=== PATIENT | female | born 1995 | race Caucasian/White ===

== ENCOUNTER 2022-12-16 10:44 | Outpatient (AMB) | payer OTHER, SELFPAY ==
[2022-12-16 10:51] VITALS: BP 140/90; BMI 39.7
--- NOTE | 2022-12-16 10:51 | MHC.PC.OV ---
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) Intake Note: New patient , physical request, trouble eating Environmental Systems Coordinator Required: No Accompanied by: Self / Same As Patient Allergies No Known Allergies Allergy (Verified 12/16/22 11:06) Medication List - Last Reconciled 12/16/22 by Haydee Davalos MD albuterol sulfate 90 mcg/actuation (Ventolin HFA) 1 puff inhalation QID alprazolam (Xanax) 0.25 mg PO BEDTIME PRN amitriptyline 10 mg PO BEDTIME hbztqfhmhd-qlttdnezyezlq-emhw 50-325-40 mg 1 tab PO Q6H PRN cholecalciferol (vitamin D3) 325 mcg PO QWEEK metformin 500 mg PO BID Tobacco use date assessed: 12/16/22 Dental Screening Dental Screen Date: 12/16/22 Did you have a dental visit in the last 12 months?: No Did you have a dental problem in the last 6 months where you did not have access to dental care?: No Was dental information given to patient?: Yes HPI HPI Comments History of Present Illness Details This is a 27-year-old female with diabetes mellitus type 2, GERD, mild major depression and obesity that comes today to establish care. A1c within goal. GERD has been present for the last year after she had an abdominal pain episode a which required to go to the hospital in [place]. She also complains of chronic diarrhea that started about a year ago. Has mild major depression on Elavil and anxiety on benzodiazepines as needed. She is obese with a BMI of 39.7 and will be referred to weight management for possible weight loss surgery. She also complains of sacral pain after having a fall and agree with physical therapy. She has anxiety and she is aware that benzodiazepines can cause addiction. [facility] Surgical History History of colonoscopy History of wisdom tooth extraction Family History Mother Diabetes Asthma Hypertension Father Diabetes Maternal Grandfather Colon cancer Maternal Aunt Colon cancer Social History Housing: Apartment Alcohol intake: never Patient Tobacco Use Status: Never used Tobacco e-Cigarette/Vaping Use: Never Used Second Hand Smoke Exposure: No service: No Current occupational status: unemployed Cognitive needs: No Hearing needs: No Vision needs: Yes Questionnaire PHQ-9 Over the last 2 weeks, how often have you been bothered by any of the following problems? 1. Little interest or pleasure in doing things: several days 2. Feeling down, depressed, or hopeless: several days 3. Trouble falling or staying asleep, or sleeping too much: nearly every day 4. Feeling tired or having little energy: not at all 5. Poor appetite or overeating: several days 6. Feeling bad about yourself - or that you are a failure or have let yourself or your family down: several days 7. Trouble concentrating on things, such as reading the newspaper or watching television: not at all 8. Moving or speaking so slowly that other people could have noticed. Or the opposite - being so fidgety or restless that you have been moving around a lot more than usual: not at all 9. Thoughts that you would be better off or of hurting yourself in some way: not at all Total score: 7 Depression Screening Interpretation: Positive Depression Screening Follow-up: Existing condition Depression Screening Done: Yes 02585 - PHQ-9 Billing: Yes Source: Developed by Drs. Hamzah Iyer, Kemi Carver, Micky Lemons and colleagues, with an educational nolvia from [employer]. Thrive Questionnaire Date Thrive assessed: 12/16/22 I am a: Patient What is your living situation today?: I have a steady place to live Within the past 12 months, did the food you bought not last and you didn't have the money to get more?: Never true Within the past 12 months, did you worry whether your food would run out before you got money to buy more?: Never true Do you have trouble paying for medicines?: No Do you have trouble getting transportation to medical appointments?: No Do you have trouble paying your heating and electricity bill?: No Do you have trouble taking care of your child, family member or friend?: No Do you have trouble with day-to-day activities such as bathing, preparing meals, shopping, managing finances, etc.?: No Are you currently unemployed and looking for a job?: No Are you interested in more education?: No Please select the resources that you would like help with: None Currently or been in a relationship where the following occur: no concerns reported AUDIT C Alcohol Use Questionnaire (AUDIT-C) 1. How often do you have a drink containing alcohol?: Never Total Score: 0 Score Reviewed/Action Taken: No COCO-7 AMB Questionnaire COCO-7 Date COCO - 7 assessed: 12/16/22 Feeling nervous, anxious, or on edge: 3 = Nearly every day Not being able to stop or control worryin = Not at all Worrying too much about different things: 1 = Several days Trouble relaxin = Not at all Being so restless that it is hard to sit still: 0 = Not at all Becoming easily annoyed or irritable: 1 = Several days Feeling afraid as if something awful might happen: 3 = Nearly every day Total COCO-7 score (0-4 normal; 5-9 mild; 10-14 moderate; 15-21 severe): 8 Source: Developed by Drs. Hamzah Iyer, Kemi Carver, Micky Lemons and colleagues, with an educational nolvia from [employer]. COCO-7 Assessment Billing COCO-7 Assessment Tool: COCO-7 Assessment 66071 Review of Systems Const All systems reviewed & are unremarkable except as noted in HPI and below Eyes Reports no additional complaints, Denies change in vision and Denies other visual disturbances Card Denies chest pain at rest, Denies chest pain with activity, Denies edema, Denies irregular heart rhythm, Denies claudication, Denies dyspnea, Denies dyspnea on exertion, Denies orthopnea, Denies paroxysmal nocturnal dyspnea and Denies slow heart rate Resp Denies cough, Denies dyspnea and Denies dyspnea on exertion GI Denies abdominal pain, Denies change in bowel habits, Denies excessive flatus, Denies nausea and Denies vomiting Denies urinary incontinence, Denies urinary hesitancy and Denies urinary urgency Musc Denies abnormal gait, Denies atrophy, Denies deformity and Denies limited range of motion Skin/Breast Denies bleeding lesions, Denies changing lesions and Denies rash Neuro Denies abnormal gait and Denies lack of coordination Physical exam (Primary Care) Vital Signs: Last Vital Signs BP 140/90 H 12/16/22 10:51 BMI result Body Mass Index 39.7 Tobacco/Smoking Status: Tobacco use Status Tobacco use date assessed 12/16/22 12/16/22 11:03 Patient Tobacco Use Status Never used Tobacco 12/16/22 11:03 e-Cigarette/Vaping Use Never Used 12/16/22 11:03 PHQ-9: PHQ-9 Score PHQ-9: Total score 7 12/16/22 11:17 Depression Screening Interpretation: Positive Depression Screening Follow-up: Existing condition Thrive Assessment: Date of Thrive Assessment Date Thrive assessed 12/16/22 12/16/22 11:03 Currently or been in a relationship where the following occur: no concerns reported Eyes General: appearance normal, both eyes and all related structures Eyelids: Yes eyelids normal Conjunctivae: conjunctivae normal Neck Neck: Yes normal visual inspection and Yes supple Resp Effort & Inspection: normal respiratory effort Auscultation: clear to auscultation bilaterally Cardio Jugular venous distension: no JVD Rate: regular rate Rhythm: regular rhythm Heart sounds: S1 normal heart sound present and S2 normal heart sound present Extrem General: Yes full ROM Office Procedures Flu Questionnaire Does the patient have a severe egg allergy?: No Results AMB Hemoglobin A1c AMB Hemoglobin A1c 6.5 % Last Edit by STANLEY Smalls on 12/16/22 11:14 Immunizations flu vacc [id number] 6mos up(PF) 60 mcg(15 mcgx4)/0.5 mL IM syringe Performing Provider: Haydee Davalos MD [facility] Documented (not given) by: STANLEY Smalls on 12/16/22 11:05 Reason Not Given: Patient Refused Results Reviewed Results Reviewed: Laboratory Last Values Hgb A1c (Clinic) 6.5 % (4.0-6.0) H 12/16/22 11:05 Assessment and Plan Assessment & Plan (1) Diabetes mellitus: Code(s): E11.9 - Type 2 diabetes mellitus without complications Plan: Continue metformin. A1c goal is equal or less than 7%. (2) Severe obesity (BMI 35.0-39.9) with comorbidity: Code(s): E66.01 - Morbid (severe) obesity due to excess calories Plan: Referred to weight management. BMI goal is less than 30. (3) Mild major depression: Code(s): F32.0 - Major depressive disorder, single episode, mild Plan: Continue amitriptyline. Referred to counseling. (4) GERD (gastroesophageal reflux disease): Code(s): K21.9 - Gastro-esophageal reflux disease without esophagitis Plan: Start PPIs. Referred to Gastroenterology. Orders: Orders Influenza [id number] Immunization Today Z23 - Encounter for immunization AMB Hemoglobin A1c Today Z13.9 - Encounter for screening, unspecified Lipid Panel Today E11.9 - Type 2 diabetes mellitus without complications, E78.5 - Hyperlipidemia, unspecified Comprehensive [place]. Panel Fast Today E11.9 - Type 2 diabetes mellitus without complications PT Evaluation and Treatment Today M53.3 - Sacrococcygeal disorders, not elsewhere classified Microalbumin, Random (w Creat) Today E11.9 - Type 2 diabetes mellitus without complications XR sacrum coccyx min 2V Today M53.3 - Sacrococcygeal disorders, not elsewhere classified Referrals Gastroenterology Referral K21.9 - Gastro-esophageal reflux disease without esophagitis Counseling Referral F32.0 - Major depressive disorder, single episode, mild Medical Weight Management Referral E66.01 - Morbid (severe) obesity due to excess calories Medications: New omeprazole 20 mg PO DAILY 90 days PRN 90 caps 0RF heartburn K21.9 - Gastro-esophageal reflux disease without esophagitis alprazolam (Xanax) 0.25 mg PO BEDTIME 30 days PRN 10 tabs 0RF anxiety metformin 500 mg PO BID 90 days 180 tabs 1RF omeprazole 20 mg PO DAILY 90 days PRN 90 caps 0RF heartburn K21.9 - Gastro-esophageal reflux disease without esophagitis Ventolin HFA 90 mcg/actuation (albuterol sulfate) 1 puff inhalation QID 30 days 18 grams 2RF NS lvjhposotb-wxenqsqeibqbs-maxo 50-325-40 mg 1 tab PO Q6H 30 days PRN 10 tabs 0RF migraines amitriptyline 10 mg PO BEDTIME 90 days 90 tabs 1RF F32.0 - Major depressive disorder, single episode, mild, G43.909 - Migraine, unspecified, not intractable, without status migrainosus Coding Level of Care Code New Pt Level 4 (39318) Diagnoses Diabetes mellitus E11.9 Severe obesity (BMI 35.0-39.9) with comorbidity E66.01 Mild major depression F32.0 GERD (gastroesophageal reflux disease) K21.9 Additional Codes COCO-7 Assessment Billing - COCO-7 Assessment Tool: COCO-7 Assessment 04516 ([id number]) Time Spent (min) 25
== END 2022-12-16 11:27 | disposition home or self-care (01) ==
PROVIDERS: PCP Internal Medicine; Visit Provider Internal Medicine
DX: E11.9 Type 2 diabetes mellitus without complications (principal); E66.01 Morbid (severe) obesity due to excess calories; F32.0 Major depressive disorder, single episode, mild; Z68.39 Body mass index [BMI] 39.0-39.9, adult; K21.9 Gastro-esophageal reflux disease without esophagitis
CPT/HCPCS: 83036; 99204

== ENCOUNTER → 2023-01-01 11:02 | Outpatient (BNVA) | payer OTHER, SELFPAY | PROVIDERS: PCP Internal Medicine; Visit Provider Physician Assistant Surgical ==

== ENCOUNTER 2023-01-19 14:18 | Outpatient (AMB) | payer OTHER, SELFPAY ==
--- NOTE | 2023-01-19 14:25 | MHC.OFFVISWM ---
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 Allergies No Known Allergies Allergy (Verified 01/19/23 14:35) Medication List - Last Reconciled 01/19/23 by MARY Reynoso alprazolam (Xanax) 0.25 mg PO BEDTIME PRN 30 days amitriptyline 10 mg PO BEDTIME 90 days nxwjdcnlco-yadlzwazplqxo-etmt 50-325-40 mg 1 tab PO Q6H PRN 30 days cholecalciferol (vitamin D3) 325 mcg PO QWEEK metformin 500 mg PO BID 90 days omeprazole 20 mg PO DAILY PRN 90 days Ventolin HFA 90 mcg/actuation (albuterol sulfate) 1 puff inhalation QID 30 days NS HPI HPI Comments History of Present Illness Details Pt is here to start the [facility] weight loss program. She heard about our program from her PCP. Her goal is to lose weight and achieve a healthy lifestyle as well as to improve, if not resolve, obesity related medical conditions, including DM. She reports first being concerned about her weight 4 years ago, highest weight to date was 232. Current weight is 217.2 pounds with a BMI of 41.1. She has tried multiple methods of weight loss including fad diets without permanent results. She lives with her boyfriend. She does not work. She wakes at:?9 am, and goes to bed at?11 pm. Dinner is at 630 pm. Breakfast: oatmeal or eggs AM snack: crackers or cookies Lunch: pizza roll PM snack: cookies Dinner: rice and beans or soup After dinner: candy, ice cream Other snacks: as above Liquids: 48-64 oz water Alcohol/marijuana/tobacco intake: no etoh, twice daily smoking cannabis, no tobacco Exercise: none, gym membership at [employer]. GERD score: 33 KASHIF score: 2 ESS score: 1 QOL score: 109 [facility] History History of colonoscopy History of wisdom tooth extraction Family History Mother Diabetes Asthma Hypertension Father Diabetes Maternal Grandfather Colon cancer Maternal Aunt Colon cancer Social History Housing: Apartment Alcohol intake: never Patient Tobacco Use Status: Never used Tobacco e-Cigarette/Vaping Use: Never Used Second Hand Smoke Exposure: No service: No Current occupational status: unemployed Cognitive needs: No Hearing needs: No Vision needs: Yes Review of Systems Const All systems reviewed & are unremarkable except as noted in HPI and below Physical Exam Vital Signs: Last Vital Signs Temp 97.4 F 01/19/23 14:30 Pulse 97 01/19/23 14:30 BP 139/75 01/19/23 14:30 Pulse Ox 99 01/19/23 14:30 Oxygen Delivery Method Room Air 01/19/23 14:30 BMI result Body Mass Index 41.0 Const General: cooperative, healthy appearing and no acute distress Orientation/consciousness: patient oriented x3 HEENT Head: Yes normal to inspection Ears: hearing grossly normal bilaterally General nose exam: Normal external nose present Face and sinus: Yes normal facial exam Eyes General: appearance normal, both eyes and all related structures Resp Effort & Inspection: normal respiratory effort Auscultation: clear to auscultation bilaterally Cardio Rate: regular rate Rhythm: regular rhythm Heart sounds: S1 normal heart sound present and S2 normal heart sound present GI Inspection: Yes normal to inspection, No distended and Yes obesity Palpation (GI): Soft to palpation, nontender and no guarding Auscultation: normal bowel sounds Skin General skin exam: no rashes or lesions noted Neuro General: patient oriented x3 Extrem General: No edema Psych Appearance: grossly normal Mental Status: mental status grossly normal Speech and movement: Normal speech and movement present Affect: normal affect Attitude: cooperative Assessment & Plan Assessment & Plan (1) Morbid obesity: Code(s): E66.01 - Morbid (severe) obesity due to excess calories Plan: This is a?27 yo female who will start our SWL program to prepare for bariatric surgery.? Blood work, h pylori , CXR, ECG, Abd US and UGI have been ordered. She is being scheduled for RD and BH initial consultations. She will start SWL classes and watch the first three videos before her next appointment. ? Adequate sleep of 7-8 hours per night discussed, awakening at 9 am and going to bed at 11 pm ? Purchase body composition analyzer scale ([employer] recommended) and check weight weekly. The best time to do this is first thing in the morning after going to the bathroom. 1. Nutritional counseling: Be sure to careful read the number of scoops per shake Start with 2 Celebrate Rebuild shakes ([facility] [employer], 77 Pieces, [employer]) First shake (1 scoop in 10 oz unsweetened almond milk) at 10am-12pm, Second shake (1.5 scoops in 15 oz of unsweetened almond milk) at 12pm-2pm 1 protein bar ([employer] bars at [facility] [employer], 77 Pieces, [employer]) at 2pm-4pm. Dinner at 6pm (8 forks of protein and 8 forks of salad/vegetables). Meal to include lean meat (beef, fish, pork, turkey, chicken), cooked vegetables or a salad with olive oil and/or fruits (berries, pears, apples, kiwi). Avoid salt, breads, potatoes, rice, pasta, desserts. Another bar at 8pm-10pm. Try to drink 64 oz of water daily and avoid soda and juices. ?2. Each shake would be drunk slowly, like coffee in a period of 2 hours. ?3. Cut each bar in 4 pieces and eat each piece in 30 min ?to make each bar last 2 hours. ?4. I emphasized the importance of measuring accurately the food portion and measure it carefully when serving the food on the plate ?5. The meal portions include 8 full-size forks of meat and 8 full-size forks of salad. You always eat the meat portion but you can replace up to half of the forks of salad/vegetables with rice, potatoes or pasta, or a fruit ?if you like. The less you do it the better weight loss will be. ?6. One full-size fork is what can be scooped on the fork without falling aside and not what can be bit with the fork. Use regular forks like those you find in a typical restaurant. ?7.? Please send me weight measurements as soon as possible and then once a week. Always include your diet and exercise plan. Alternatively come weekly at the office for weight checks and send me the measurements. ?8. Exercise counseling: Begin by watching a stretching for beginners video. Start slowly and begin to stretch your muscles. You should do this before and after each exercise session to prevent injury. Please return to [employer] [facility] near your home. Ask the home health care case manager or one of the trainers how to use the machines if you are unfamiliar with them. Start elliptical with a resistance of 2. Increase resistance by 1 every 3 min to your most comfortable resistance with a max resistance of 8. Reduce the resistance by 1 every 3 minutes back down to 2 and repeat cycles for 300 calories. Alternatively, start treadmill with a speed of 3.0 and incline of 0, increasing incline by 1 every 3 minutes to the highest comfortable level (max 6 for now) then decrease in the same fashion. Repeat process to a goal of 300 calories. Goal of 2000 calories burned or more weekly. You may also consider use of the stationary bike. The easiest would be to chose the fat-burn or interval training program on the machine and do this until you reach the 300 calorie goal. Alternatively, you can manually adjust the resistance in a similar fashion as mentioned above, (resistance of 2-8 with a goal speed of 12 mph). Tracking calories is essential. 9. Alternatively start walking outside daily, tracking calories with a goal of 300 calories per day, daily. You can download the [employer] which can track your time, distance and calories while walking outside. You press start in the [employer] when you start and then stop when you are finished. 10.? It is important to avoid for at least 18 months postoperatively and it has been discussed at the information session 11. Please get labs, EKG and chest X-Ray within 1 week. Follow your blood sugars at home closely as they will improve quickly and you may not need as much metformin. 12. Discussed and answered all questions regarding?obtained consent to participate in the [place] [facility]?Registry. 13. Please follow the diet plan exactly, without any change. If you do not like something about the plan or you feel hungry, you need to communicate with me so I can help you revise the plan. You should not change the plan yourself. Text me at [phone] 14. Goal is to lose at least 12 pounds in the first month 15. Goal is to lose 10% of your weight before surgery, which is about 21 lbs. Ultimate weight goal: 196 lbs before surgery Patient is morbidly obese and is not considered stable at this time.?I spent a total of 70 minutes reviewing/updating records, examining the patient and counseling the patient on weight management as detailed above. Orders: Orders Lipid Panel Today E11.9 - Type 2 diabetes mellitus without complications, E55.9 - Vitamin D deficiency, unspecified, E66.01 - Morbid (severe) obesity due to excess calories IRON PROFILE Today E11.9 - Type 2 diabetes mellitus without complications, E55.9 - Vitamin D deficiency, unspecified, E66.01 - Morbid (severe) obesity due to excess calories Vitamin B12 and Folate Today E11.9 - Type 2 diabetes mellitus without complications, E55.9 - Vitamin D deficiency, unspecified, E66.01 - Morbid (severe) obesity due to excess calories Zinc Today E11.9 - Type 2 diabetes mellitus without complications, E55.9 - Vitamin D deficiency, unspecified, E66.01 - Morbid (severe) obesity due to excess calories C Reactive Protein Today E11.9 - Type 2 diabetes mellitus without complications, E55.9 - Vitamin D deficiency, unspecified, E66.01 - Morbid (severe) obesity due to excess calories Ferritin Today E11.9 - Type 2 diabetes mellitus without complications, E55.9 - Vitamin D deficiency, unspecified, E66.01 - Morbid (severe) obesity due to excess calories PTHI Today E11.9 - Type 2 diabetes mellitus without complications, E55.9 - Vitamin D deficiency, unspecified, E66.01 - Morbid (severe) obesity due to excess calories H Pylori Breath Test Today E11.9 - Type 2 diabetes mellitus without complications, E55.9 - Vitamin D deficiency, unspecified, E66.01 - Morbid (severe) obesity due to excess calories US abdomen comp w elastography Today E11.9 - Type 2 diabetes mellitus without complications, E55.9 - Vitamin D deficiency, unspecified, E66.01 - Morbid (severe) obesity due to excess calories Insulin Today E11.9 - Type 2 diabetes mellitus without complications, E55.9 - Vitamin D deficiency, unspecified, E66.01 - Morbid (severe) obesity due to excess calories Complete Blood Count Auto Diff Today E11.9 - Type 2 diabetes mellitus without complications, E55.9 - Vitamin D deficiency, unspecified, E66.01 - Morbid (severe) obesity due to excess calories Comprehensive Met. Panel Today E11.9 - Type 2 diabetes mellitus without complications, E55.9 - Vitamin D deficiency, unspecified, E66.01 - Morbid (severe) obesity due to excess calories Vitamin B1 Today E11.9 - Type 2 diabetes mellitus without complications, E55.9 - Vitamin D deficiency, unspecified, E66.01 - Morbid (severe) obesity due to excess calories Vitamin A Today E11.9 - Type 2 diabetes mellitus without complications, E55.9 - Vitamin D deficiency, unspecified, E66.01 - Morbid (severe) obesity due to excess calories TSH reflex Free T4 Today E11.9 - Type 2 diabetes mellitus without complications, E55.9 - Vitamin D deficiency, unspecified, E66.01 - Morbid (severe) obesity due to excess calories Vitamin D 25-OH Total Today E11.9 - Type 2 diabetes mellitus without complications, E55.9 - Vitamin D deficiency, unspecified, E66.01 - Morbid (severe) obesity due to excess calories Hemoglobin A1c Today E11.9 - Type 2 diabetes mellitus without complications, E55.9 - Vitamin D deficiency, unspecified, E66.01 - Morbid (severe) obesity due to excess calories XR chest 2V Today E11.9 - Type 2 diabetes mellitus without complications, E55.9 - Vitamin D deficiency, unspecified, E66.01 - Morbid (severe) obesity due to excess calories ECG 12 lead EKG Today E11.9 - Type 2 diabetes mellitus without complications, E55.9 - Vitamin D deficiency, unspecified, E66.01 - Morbid (severe) obesity due to excess calories FL upper GI w air Today E11.9 - Type 2 diabetes mellitus without complications, E55.9 - Vitamin D deficiency, unspecified, E66.01 - Morbid (severe) obesity due to excess calories Referrals Behavioral Health Referral E11.9 - Type 2 diabetes mellitus without complications, E55.9 - Vitamin D deficiency, unspecified, E66.01 - Morbid (severe) obesity due to excess calories Nutrition/Dietitian Referral E11.9 - Type 2 diabetes mellitus without complications, E55.9 - Vitamin D deficiency, unspecified, E66.01 - Morbid (severe) obesity due to excess calories Coding Level of Care Code New Pt Level 5 (28087) Diagnoses Morbid obesity E66.01 Time Spent (min) 70
[2023-01-19 14:30] VITALS: BP 139/75; PULSE 97; TEMP 36.3; O2SAT 99; BMI 41.0
== END 2023-01-19 16:57 | disposition home or self-care (01) ==
PROVIDERS: PCP Internal Medicine; Visit Provider Physician Assistant Surgical
DX: E66.01 Morbid (severe) obesity due to excess calories (principal); Z68.41 Body mass index [BMI] 40.0-44.9, adult
CPT/HCPCS: 99205

== ENCOUNTER → 2023-01-19 14:18 | Outpatient (BNVA) | payer OTHER, SELFPAY | PROVIDERS: PCP Internal Medicine; Visit Provider Physician Assistant Surgical | DX: E66.01 Morbid (severe) obesity due to excess calories (principal); Z68.41 Body mass index [BMI] 40.0-44.9, adult | CPT/HCPCS: 99202 ==

== ENCOUNTER 2023-01-19 14:26 | Outpatient (REF) | payer OTHER, SELFPAY | END 2023-01-19 14:27 | disposition home or self-care (01) | LOC: HO.LNP 14:26 | PROVIDERS: Visit Provider Physician Assistant Surgical | DX: Z13.89 Encounter for screening for other disorder (principal) | CPT/HCPCS: 83013 ==

== ENCOUNTER 2023-01-23 10:53 | Outpatient (REF) | payer OTHER, SELFPAY ==
--- NOTE | ~2023-01-23 | XR_ITS ---
EXAMINATION: XR SACRUM AND COCCYX CLINICAL INFORMATION: Sacral coccygeal disorders, not elsewhere classified COMPARISON: None available. TECHNIQUE: 2 views of the sacrum and 2 views of the coccyx were obtained. FINDINGS: There are no fractures. No bone, joint or soft tissue abnormality is demonstrated. XR/XR sacrum coccyx min 2V IMPRESSION: No significant bony abnormality.
--- NOTE | ~2023-01-23 | XR_ITS ---
EXAMINATION: XR CHEST CLINICAL INFORMATION: Morbid (severe) obesity due to excess calories COMPARISON: None available. TECHNIQUE: 2 views of the chest were obtained. 11:45 AM FINDINGS: No significant abnormality is noted involving the heart, lungs, mediastinum, bony thorax or soft tissues. XR/XR chest 2V IMPRESSION: Unremarkable examination.
--- NOTE | 2023-01-23 11:10 | ECG_ITS ---
Test Reason : E66.01 Blood Pressure : / mmHG Vent. Rate : 082 BPM Atrial Rate : 082 BPM P-R Int : 174 ms QRS Dur : 084 ms QT Int : 396 ms P-R-T Axes : 044 022 030 degrees QTc Int : 462 ms Normal sinus rhythm Normal ECG No previous ECGs available Referred By: Robbi Rocha Electronically Signed By:EDI BUENROSTOR MD
[2023-01-23 11:20] LABS: MANUAL DIFF FLAG NO
[2023-01-23 12:06] LABS: Basophils Percent Auto 0.4 % (0-2); Eosinophils Absolute Auto 0.2 X10*3/uL (0.0-0.4); Eosinophils Percent Auto 2.5 % (0-4); Hematocrit 43.4 % (37.0-47.0); Hemoglobin 14.5 g/dl (12.0-16.0); Imm Gran Abs Auto 0.01 X10*3/uL (0.00-0.03); Imm Gran Pct Auto 0.1 % (0.0-0.4); Lymphocytes Absolute Auto 2.4 X10*3/uL (1.2-4.9); Lymphocytes Percent Auto 35.8 % (20-40); Mean Corpuscular HGB Conc 33.4 g/dl (31.0-35.0); Mean Corpuscular Hemoglobin 29.8 pg (27.0-33.0); Mean Corpuscular Volume 89.3 fL (80.0-98.0); Mean Platelet Volume 9.5 fL (9.4-12.3); Monocytes Absolute Auto 0.5 X10*3/uL (0.1-1.2); Monocytes Percent Auto 7.4 % (2-11); Neutrophils Absolute Auto 3.6 x10*3/uL (2.0-8.3); Neutrophils Percent Auto 53.8 % (45-73); Platelet Count 290 X10*3/uL (160-400); Red Blood Count 4.86 X10*6/uL (4.20-5.50); Red Cell Distribution Width 12.5 % (11.0-16.0); White Blood Count 6.7 X10*3/uL (4.8-10.8)
[2023-01-23 12:36] LABS: Estimated Average Glucose 128 mg/dL; Hemoglobin A1c % 6.1 % (<6.0)
[2023-01-23 13:03] LABS: Alanine Aminotransferase 36 U/L (0-31); Albumin Level 4.2 g/dL (3.5-5.0); Alkaline Phosphatase 61 U/L (39-117); Anion Gap 13 (12-20); Aspartate Amino Transferase 31 U/L (5-31); Bilirubin Total 0.5 mg/dL (0.0-1.0); Blood Urea Nitrogen 13 mg/dL (9-16); C Reactive Protein 0.42 mg/dL (< or = 0.50); Carbon Dioxide 22 mmol/L (22-29); Chloride 107 mmol/L (96-108); Cholesterol 218 mg/dL (<200); Estimated Glomerular Filt Rate > 60; Glucose Random 103 mg/dL (60-115); HDL Cholesterol 49 mg/dL (>40); Iron 104 mcg/dL (30-160); LDL Cholesterol Calculated 148 mg/dL (<100); Percent Iron Saturation 27 % (15-50); Potassium 4.3 mmol/L (3.3-5.1); Sodium 138 mmol/L (135-145); Total Iron Binding Capacity 380 mcg/dL (228-428); Total Protein 7.7 g/dL (6.5-8.0); Triglycerides 108 mg/dL (<150); Unsaturated Iron Binding 276 ug/dL
[2023-01-23 13:25] LABS: Ferritin 34 ng/mL (10-122); Insulin 7 uU/mL (2-29); TSH reflex Free T4 1.35 uIU/mL (0.32-4.0); Vitamin D 25-OH Total 37.9 ng/mL (>30)
[2023-01-23 13:48] LABS: Folate 6.1 ng/mL (> or = 4.0); Vitamin B12 482 pg/mL (200-900)
[2023-01-26 17:17] LABS: Calcium (PTHI) 9.3 mg/dL (8.6-10.2); PTHI 46 pg/mL (16-77)
[2023-01-27 05:39] LABS: Zinc 81 mcg/dL (60-130)
[2023-01-28 09:28] LABS: Vitamin A 45 mcg/dL (38-98)
[2023-01-28 12:59] LABS: Vitamin B1 8 nmol/L (8-30)
== END 2023-01-23 10:54 | disposition home or self-care (01) ==
LOC: HO.XRAY 10:53
PROVIDERS: PCP Internal Medicine; Visit Provider Physician Assistant Surgical
DX: E66.01 Morbid (severe) obesity due to excess calories (principal); E11.9 Type 2 diabetes mellitus without complications; E55.9 Vitamin D deficiency, unspecified; M53.3 Sacrococcygeal disorders, not elsewhere classified
CPT/HCPCS: 36415; 71046; 72220; 80053; 80061; 82306; 82607; 82728; 82746; 83036; 83525; 83540; 83970; 84425; 84443; 84590; 84630; 85025; 86140; 93005

== ENCOUNTER 2023-01-28 09:56 | Outpatient (AMB) | payer OTHER, SELFPAY ==
--- NOTE | 2023-01-28 10:07 | MHC.OFFVIS ---
Intake Vital Signs 01/28/23 10:09 Height 5 ft 1 in Weight 212 lb BMI 40.1 BP 130/74 Blood Pressure Location Lt brachial Position Sitting Pulse 78 Intake Visit Reasons: Gastro-esophageal reflux disease Intake Note: Patient new consult for Diverticulosis and GERD. Patient cc: Diverticulosis, nauseas, acid reflex, abdominal pain with bloating and diarrhea. Emergency Doctor Required: Yes Accompanied by: Family/Other Allergies No Known Allergies Allergy (Verified 01/28/23 10:07) Medication List - Last Reconciled 01/28/23 by Pema Marquez PA-C alprazolam (Xanax) 0.25 mg PO BEDTIME PRN 30 days amitriptyline 10 mg PO BEDTIME 90 days hztuyrfgte-emoxdlpohddum-vogw 50-325-40 mg 1 tab PO Q6H PRN 30 days cholecalciferol (vitamin D3) 325 mcg PO QWEEK cyanocobalamin (vitamin B-12) 250 mcg PO DAILY 90 days metformin 500 mg PO BID 90 days omeprazole 20 mg PO DAILY PRN 90 days Ventolin HFA 90 mcg/actuation (albuterol sulfate) 1 puff inhalation QID 30 days NS HPI HPI Comments History of Present Illness Details A 27 y/o female- referred after GI workup in portal ago. She is accompanied by her she tells as she went to ED 1 yr ago- in [place]-N/V/D 01/30/22-CT scan- ? fluid in rectum- sent for colon 06/09/22-colonoscopy: Mild sig divertic Int rrhoids Bx- rectal normal mucosa Seeing Wt management- acid reflux improved-having H.pylori 02/11/23 - no ppi - In she is following and the recommended diet to include, protein shakes and only 1 meal-she did excess has helped improve Constipated since began iron supplements,- colace - was very helpful Requesting for previous GI-further breath test hydrogen breath test and lactose No nausea, vomiting hematemesis, hematochezia fever chills PFSH Surgical History (Updated 01/28/23 @ 10:50 by Pema Marquez PA-C) History of colonoscopy History of wisdom tooth extraction Family History Mother Diabetes Asthma Hypertension Father Diabetes Maternal Grandfather Colon cancer Maternal Aunt Colon cancer Social History Housing: Apartment Alcohol intake: never Patient Tobacco Use Status: Never used Tobacco e-Cigarette/Vaping Use: Never Used Second Hand Smoke Exposure: No service: No Current occupational status: unemployed Cognitive needs: No Hearing needs: No Vision needs: Yes Review of Systems Const All systems reviewed & are unremarkable except as noted in HPI and below Card Denies chest pain and Denies dyspnea Resp Denies dyspnea GI Reports constipation and Reports heartburn Physical Exam Vital Signs: Last Vital Signs Pulse 78 01/28/23 10:09 BP 130/74 01/28/23 10:09 BMI result Body Mass Index 40.1 Const General: cooperative, healthy appearing, comfortable and no acute distress Nutritional Appearance: overweight Orientation/consciousness: patient oriented x3 Limitations: no limitations Eyes Sclerae: sclerae normal Resp Effort & Inspection: normal respiratory effort and able to speak in complete sentences Auscultation: clear to auscultation bilaterally, no rales, no rhonchi and no wheezes Cardio Rate: regular rate Rhythm: regular rhythm Heart sounds: S1 normal heart sound present and S2 normal heart sound present GI Palpation (GI): Soft to palpation and nontender Auscultation: normal bowel sounds Neuro General: patient oriented x3 Extrem General: Yes full ROM Psych Appearance: grossly normal and well kempt Mental Status: mental status grossly normal Speech and movement: Normal speech and movement present and Clear speech present Affect: normal affect Attitude: cooperative Thought process: Normal thought process present Thought content: Normal thought content present Insight: Good insight present (Psych) Judgement: Good judgement present (Psych) Assessment & Plan Assessment & Plan (1) GERD (gastroesophageal reflux disease): Comment: PPI, improved with dietary modification -following with weight management Code(s): K21.9 - Gastro-esophageal reflux disease without esophagitis Plan: Not taking PPI, awaiting H pylori testing she (2) Severe obesity (BMI 35.0-39.9) with comorbidity: Comment: Weight management Code(s): E66.01 - Morbid (severe) obesity due to excess calories (3) Diverticulosis of colon: Code(s): K57.30 - Diverticulosis of large intestine without perforation or abscess without bleeding Plan: diverticulosis/diverticulitis ER protocol (4) Hemorrhoids: Code(s): K64.9 - Unspecified hemorrhoids Plan: Avoid straining Rectal creams (5) Constipation: Code(s): K59.00 - Constipation, unspecified Plan: Maintain good hydration Review with weight management (6) History of colonoscopy: Code(s): Z98.890 - Other specified postprocedural states Plan: 27-year-old female here with history of GERD, seen in worked up by a health sciences program coordinator in [place] within the past year. She underwent colonoscopy. She is currently working with weight management and following there dietary recommendations She will continue to follow their recommendations Maintain good hydration She is had much improvement GERD since beginning wt with management Plan Will place order for lactulose and hydrogen testing Colonoscopy report/pathology will be scanned into her record Continue to with weight management/recommendations-in having H pylori testing with them next week Diverticulosis/diverticulitis here protocol Will see back after testing completed for further plan. Patient Instructions: Will place order for lactulose and hydrogen testing Colonoscopy report/pathology will be scanned into her record Continue to with weight management/recommendations Diverticulosis/diverticulitis here protocol Will see back after testing completed for further plan Coding Level of Care Code New Pt Level 4 (30908) Diagnoses GERD (gastroesophageal reflux disease) K21.9 Severe obesity (BMI 35.0-39.9) with comorbidity E66.01 Diverticulosis of colon K57.30 Hemorrhoids K64.9 Constipation K59.00 History of colonoscopy Z98.890 Time Spent (min) 40
[2023-01-28 10:09] VITALS: BP 130/74; PULSE 78; BMI 40.1
== END 2023-01-28 10:55 | disposition home or self-care (01) ==
PROVIDERS: PCP Internal Medicine; Visit Provider Physician Assistant
DX: K21.9 Gastro-esophageal reflux disease without esophagitis (principal); E66.01 Morbid (severe) obesity due to excess calories; K57.30 Diverticulosis of large intestine without perforation or abscess without bleeding; K64.9 Unspecified hemorrhoids; K59.00 Constipation, unspecified; Z98.890 Other specified postprocedural states
CPT/HCPCS: 99204

== ENCOUNTER → 2023-01-28 09:56 | Outpatient (BNVA) | payer OTHER, SELFPAY | PROVIDERS: PCP Internal Medicine; Visit Provider Physician Assistant | DX: K57.30 Diverticulosis of large intestine without perforation or abscess without bleeding (principal); K21.9 Gastro-esophageal reflux disease without esophagitis; K59.00 Constipation, unspecified; K64.9 Unspecified hemorrhoids; E66.01 Morbid (severe) obesity due to excess calories; Z68.41 Body mass index [BMI] 40.0-44.9, adult; Z98.890 Other specified postprocedural states | CPT/HCPCS: 99202 ==

== ENCOUNTER 2023-02-11 10:15 | Outpatient (AMB) | payer OTHER, SELFPAY ==
--- NOTE | 2023-02-11 10:22 | AM.OFFWIN_ITS ---
Intake Vital Signs 02/11/23 10:23 Height 5 ft 1 in Weight 211 lb 2 oz BMI 39.9 BP 130/78 Blood Pressure Location Rt brachial Position Sitting Pulse 80 Pulse Source Pulse Oximeter Temp 98.2 F Temp Source Temporal Artery Scan Pulse Oximetry (%) 98 Oxygen Delivery Method Room Air Intake Visit Reasons: EST/fever/congestion (lobby masked) Intake Note: pt is here for c/o fever, congestion, fever, body ache, watery eyes 2x days Patient Tobacco Use Status: Never used Tobacco Allergies No Known Allergies Allergy (Verified 02/11/23 10:24) Do you need a note to return to daycare/school/sports/work: Yes HPI HPI Comments History of Present Illness Details Patient is a 27yo F who presents with viral symptoms She said onset 2 days symptoms: fever, body aches, sore throat,congestion, diarrhea Diarrhea has improved. She is currently being worked up by GI for H pylori Has appointment today and told to be seen to r/o COVI prior to arrival so she came to office today + post nasal drip + cough but no SOB Hx asthma without need for medicine + ear pain, now R sided She thought she saw a white spot in throat, pain is slight with swallowing Close contact sick with flu PFSH Surgical History (Updated 01/28/23 @ 10:50 by Pema Marquez PA-C) History of colonoscopy History of wisdom tooth extraction Family History Mother Diabetes Asthma Hypertension Father Diabetes Maternal Grandfather Colon cancer Maternal Aunt Colon cancer Social History Housing: Apartment Alcohol intake: never Patient Tobacco Use Status: Never used Tobacco e-Cigarette/Vaping Use: Never Used Second Hand Smoke Exposure: No service: No Current occupational status: unemployed Cognitive needs: No Hearing needs: No Vision needs: Yes Review of Systems Const Reports body aches, Reports chills and Reports headache(s) Eyes Reports itchy eyes ENT Denies ear discharge, Reports headache(s), Reports nasal congestion, Reports sore throat and Reports other (ear pain) Card Denies chest pain Resp Reports cough GI Denies abdominal pain and Reports loose stools Musc Reports myalgias Neuro Reports headache(s) Aller/Immun Reports itchy eyes Physical Exam Vital Signs: Last Vital Signs Temp 98.2 F 02/11/23 10:23 Pulse 80 02/11/23 10:23 BP 130/78 02/11/23 10:23 Pulse Ox 98 02/11/23 10:23 Oxygen Delivery Method Room Air 02/11/23 10:23 BMI result Body Mass Index 39.9 General: Non-toxic, NAD. Speaking full sentences. Skin: Warm dry throughout Eye: EOMI HENT: Airway patent. Uvula midline. No pharyngeal erythema, exudates or edema. No MD PEDIATRIC ALLERGIST. Bilateral canals clear. Slight L sided TM erythema but R TM non-erythematous, non-bulging. No TM perforation or hemotympanum noted. Respiratory: CTA bilaterally. No wheezes, rales or rhonchi Cardiac: RRR. No murmur MSK: Full ROM extremities. Neurology: A/O. No aphasia or facial droop. Gait without abnormality Psych: Good mood and affect Assessment & Plan Assessment & Plan (1) Upper respiratory infection: Code(s): J06.9 - Acute upper respiratory infection, unspecified Qualifiers: URI type: unspecified viral URI Qualified Code(s): J06.9 - Acute upper respiratory infection, unspecified Plan: COVID negative Plan Patient seen and evaluated. Lungs CTA; no concern PNA Airway patent without exudates MD PEDIATRIC ALLERGIST or signs of strep offered rapid but pt declined COVID test ordered BiaxNOW to be completed next door; she needs results for appointment today We discussed if negative, flu can be obtained but would not policy change clerk and pt declined We discussed symptomatic management with bland diet, fluids, fever/ache control with OTC meds F/U with PCP Pt gave verbal consent and all questions answered prior to d/c. She declined power generation technician for visit. Orders: Orders BinaxNOW Covid-19 Ag Today J06.9 - Acute upper respiratory infection, unspecified Coding Level of Care Code Est Pt Level 3 (97178) Diagnoses Viral upper respiratory tract infection J06.9 URI type: unspecified viral URI
[2023-02-11 10:23] VITALS: BP 130/78; PULSE 80; TEMP 36.8; O2SAT 98; BMI 39.9
== END 2023-02-11 11:27 | disposition home or self-care (01) ==
PROVIDERS: PCP Internal Medicine; Visit Provider Physician Assistant
DX: J06.9 Acute upper respiratory infection, unspecified (principal)
CPT/HCPCS: 99213

== ENCOUNTER 2023-02-11 10:45 | Outpatient (REF) | payer OTHER, SELFPAY ==
[2023-02-11 11:11] LABS: Binax Internal Control QC Valid; Binax Now Covid-19 Ag Negative (Negative); Binax Performed by: HO.BONILM
[2023-02-16 14:04] LABS: H Pylori Breath Test Positive (Negative)
== END 2023-02-11 10:46 | disposition home or self-care (01) ==
LOC: HO.HMGCLDS 10:45
PROVIDERS: Physician Assistant Surgical; Visit Provider Physician Assistant
DX: Z11.52 Encounter for screening for COVID-19 (principal); E66.9 Obesity, unspecified; J06.9 Acute upper respiratory infection, unspecified
CPT/HCPCS: 83013; 87811; 99211; 99212; C9803

== ENCOUNTER 2023-02-11 14:00 | Outpatient (AMB) | payer OTHER, SELFPAY ==
--- NOTE | 2023-02-11 14:01 | MHC.OFFVISWM ---
Intake VS Expanded 02/11/23 14:15 BP 147/72 H Blood Pressure Location Rt brachial Blood Pressure Position Sitting Pulse 83 Pulse Source Pulse Oximeter Temp 97.5 F Temperature Source Temporal Artery Scan Pulse Oximetry 97 Oxygen Delivery Method Room Air Height 5 ft 1 in Weight 206 lb 6.4 oz BMI 39.0 Body Fat % 43.2 Body Fat Mass 89.0 Fat Free Mass 117.2 Visceral Fat Rating 10.0 Body Water % 40.8 Body Water Mass 84.2 Muscle Mass/Score 111.4 Basal Metabolic Rate/Score 1,674 Intake Visit Reasons: (OV) F/U SWL + H.Pylori Asbestos Shingle Inspector Required: Yes Asbestos Shingle Inspector Name: office cmi Allergies No Known Allergies Allergy (Verified 02/11/23 14:06) Medication List - Last Reconciled 02/11/23 by MARY Reynoso alprazolam (Xanax) 0.25 mg PO BEDTIME PRN 30 days amitriptyline 10 mg PO BEDTIME 90 days [id number]-[id number]-magq 50-325-40 mg 1 tab PO Q6H PRN 30 days cholecalciferol (vitamin D3) 325 mcg PO QWEEK cyanocobalamin (vitamin B-12) 250 mcg PO DAILY 90 days metformin 500 mg PO BID 90 days thiamine HCl (vitamin B1) 100 mg PO DAILY 90 days Ventolin HFA 90 mcg/actuation (albuterol sulfate) 1 puff inhalation QID 30 days NS HPI HPI Comments History of Present Illness Details The patient is a pleasant 27 year old female who returns to the clinic for pre-operative surgical weight loss management. They were last seen in the office on 01/19/27, recorded weight at that time was 217.2 pounds, with a BMI of 41. Today's weight is 206.4 pounds and BMI is 39. There has been a weight loss of 10.8 pounds since initiating the surgical weight loss program on 01/19/23 with a total body weight loss of 4.9 %. Pre op work up completed as follows: SWL classes:? []/8 BH appts: 02/26/23 ? ? RD appts: 02/17/23 Labs: 01/23/23-low B1, B12:482 H. pylori: 02/11/23 CXR: 01/23/23-nad EK01/23/23-normal ABD U/S: 03/12/23 UGI: 03/12/23 The patient reports she has recently been sick including today w viral illness. The patient does not have a body composition scale. They also have been communicating weekly. Current meal plan includes: 2 Celebrate Rebuild shakes First shake (1 scoop in 10 oz unsweetened almond milk) at 10am-12pm, Second shake (1.5 scoops in 15 oz of unsweetened almond milk) at 12pm-2pm 1 protein bar (CREAT bars at [facility] [employer], [employer], [employer]) at 2pm-4pm. Dinner at 6pm (8 forks of protein and 8 forks of salad/vegetables). Another bar at 8pm-10pm. Drinking 64 oz of water Current exercise plan includes: none in the last week due to illness. [facility] Surgical History History of colonoscopy History of wisdom tooth extraction Family History Mother Diabetes Asthma Hypertension Father Diabetes Maternal Grandfather Colon cancer Maternal Aunt Colon cancer Social History Housing: Apartment Alcohol intake: never Patient Tobacco Use Status: Never used Tobacco e-Cigarette/Vaping Use: Never Used Second Hand Smoke Exposure: No service: No Current occupational status: unemployed Cognitive needs: No Hearing needs: No Vision needs: Yes Review of Systems Const All systems reviewed & are unremarkable except as noted in HPI and below Assessment & Plan Assessment & Plan (1) Obesity (BMI 30-39.9): Code(s): E66.9 - Obesity, unspecified Plan: change meal plan: 2 Celebrate Rebuild shakes First shake (1 scoop in 10 oz unsweetened almond milk) at 10am-12pm, Second shake (1 scoop in 10 oz of unsweetened almond milk) at 12pm-2pm 1 protein bar ([employer] bars at [facility] [employer], [employer], [employer]) at 2pm-4pm. Dinner at 6pm (7 forks of protein and 7 forks of salad/vegetables). Another bar at 8pm-10pm. Return tho the gym when recovered from viral illness. Get body composition scale continue texting w updates reminded of upcoming appts rtc 3 weeks Coding Level of Care Code Est Pt Level 3 (48617) Diagnoses Obesity (BMI 30-39.9) E66.9
[2023-02-11 14:15] VITALS: BP 147/72; PULSE 83; TEMP 36.4; O2SAT 97; BMI 39.0
== END 2023-02-11 14:35 | disposition home or self-care (01) ==
PROVIDERS: PCP Internal Medicine; Visit Provider Physician Assistant Surgical
DX: E66.9 Obesity, unspecified (principal); Z68.41 Body mass index [BMI] 40.0-44.9, adult
CPT/HCPCS: 99213

== ENCOUNTER 2023-02-17 09:00 | Outpatient (AMB) | payer OTHER, SELFPAY ==
--- NOTE | 2023-02-17 09:15 | MHC.AMNUTRGE ---
Intake Intake Visit Reasons: (OV) Initial Nutrition SW Parks And Recreation Manager Required: Yes Parks And Recreation Manager Name: Bruna [phone] Information Interpreted: non-clinical & clinical Allergies No Known Allergies Allergy (Verified 02/11/23 14:06) HPI Nutrition Presentation Reason for consult elevated BMI Diet Assmnt Details Two celebrate shakes - each 1 scoop protein powder 1 celebrate protein bar dinner meal 7 bites of protein , 7 bites of vegetables protein bar Pt had questions regarding HR while exercising. was getting up to 167 HR. today recommended she decrease the incline SWL online classes: 06/21 classes Dietary counseling reduction Diagnosis Nutrition problem #1 overweight/obesity As related to (etiology) #1 excess energy intake and physical inactivity As evidenced by (sign/symptom) #1 high BMI Monitoring/Goals Nutrition problem monitoring total energy intake, level of knowledge/skill, total PRO intake, total CHO intake and weight Outcome progress progressing Learning/Education Readiness to learn excellent Stages of change action Educational materials provided Yes Most Recent Diabetes Results: Cholesterol 218 mg/dL (<200) H 01/23/23 HDL Cholesterol 49 mg/dL (>40) 01/23/23 Triglycerides 108 mg/dL (<150) 01/23/23 Creatinine 0.70 mg/dL (0.5-1.4) 01/23/23 Blood Urea Nitrogen 13 mg/dL (9-16) 01/23/23 Sodium 138 mmol/L (135-145) 01/23/23 Potassium 4.3 mmol/L (3.3-5.1) 01/23/23 Chloride 107 mmol/L (96-108) 01/23/23 Carbon Dioxide 22 mmol/L (22-29) 01/23/23 Calcium 9.0 mg/dL (8.4-10.2) 01/23/23 AST 31 U/L (5-31) 01/23/23 ALT 36 U/L (0-31) H 01/23/23 Total Protein 7.7 g/dL (6.5-8.0) 01/23/23 Albumin 4.2 g/dL (3.5-5.0) 01/23/23 PFSH Surgical History History of colonoscopy History of wisdom tooth extraction Family History Mother Diabetes Asthma Hypertension Father Diabetes Maternal Grandfather Colon cancer Maternal Aunt Colon cancer Social History Housing: Apartment Alcohol intake: never Patient Tobacco Use Status: Never used Tobacco e-Cigarette/Vaping Use: Never Used Second Hand Smoke Exposure: No service: No Current occupational status: unemployed Cognitive needs: No Hearing needs: No Vision needs: Yes Assessment & Plan Assessment & Plan (1) Obesity (BMI 30-39.9): Code(s): E66.9 - Obesity, unspecified Plan pt will likely be a great candidate once she completes all program requirements. f/u 03/19 9am OV Coding Level of Care Code Nutr Indiv Intake (30582) Diagnoses Obesity (BMI 30-39.9) E66.9 Time Spent (min) 35
== END 2023-02-17 09:53 | disposition home or self-care (01) ==
PROVIDERS: PCP Internal Medicine; Visit Provider Dietitian, Registered
DX: E66.9 Obesity, unspecified (principal)

== ENCOUNTER → 2023-02-17 09:00 | Outpatient (BNVA) | payer OTHER, SELFPAY | PROVIDERS: PCP Internal Medicine; Visit Provider Dietitian, Registered | DX: E66.9 Obesity, unspecified (principal) | CPT/HCPCS: 97802 ==

== ENCOUNTER 2023-02-26 09:56 | Outpatient (AMB) | payer OTHER, SELFPAY ==
--- NOTE | 2023-02-26 10:10 | A.OFFWM_ITS ---
Intake Intake Visit Reasons: (OV) Intake Allergies No Known Allergies Allergy (Verified 02/11/23 14:06) PFSH Surgical History History of colonoscopy History of wisdom tooth extraction Family History Mother Diabetes Asthma Hypertension Father Diabetes Maternal Grandfather Colon cancer Maternal Aunt Colon cancer Social History Housing: Apartment Alcohol intake: never Patient Tobacco Use Status: Never used Tobacco e-Cigarette/Vaping Use: Never Used Second Hand Smoke Exposure: No service: No Current occupational status: unemployed Cognitive needs: No Hearing needs: No Vision needs: Yes Behavioral Health Assessment Weight Management Therapy Therapy Notes Details Pt is a 27 y/o , [place] citizen-speaking female who presents for initial assessment for Weight management program. Pt reports she has always struggle with her weight and her PCP referred here for a more structured intervention for weight loss. Pt wants to feel good with her body, be active and healthy. PT disclosed a recent diagnosis of generalized anxiety and dysthimya from May/2022 by a psychologist in [place]. She had major depressive symptoms with suicidal ideating and was dysregulated; providers suggested partial or higher level of care but patient denies at that time. Currently, she is not in treatment besides a lower dosage of Xanax prescribed by her PCP, Dr Renetta Amaral. Pt is in a waiting list for treatment as she states been struggling with her mood and anxiety on a daily basis and, she doesn't feel stable. She scored high on BES and PHQ-9, showing active Sx of depression and, due to hitesh arzate alleged mental health issues and mental status exam patient is not considered stable, this she's not cleared today. We will follow up again in about a month. Presenting Concerns Referral Source P Provider. Pt sees ALBERTINA. Initially referred by PCP. Reason for referral Completion of behavioral health assessment as part of process for weight-loss surgery. Precipitating Event Obesity, Type 2 diabetes. Living Situation Current Living Situation Rent At risk of losing current housing? No Satisfied with current living situation? Yes Comments Pt lives with boyfriend. Food/Weight/Diet Expectations of change Pt wants to be at least 150Lbs. Initial goal is to lose 10% of her weight before surgery, which is about 21 lbs. Ultimate weight goal: 196 Lbs before surgery. History/Relationship with food Pt reports he used to skip meals, snacking here and there. History/Relationship with weight Always been overweight. Max weight 232Lbs and lowest weight in last 10 years 180-190Lbs when graduated HS. History/Relationship with dieting Usually sticks to diets/programs for 2-3 months. Binge Eating Do you frequently eat large amounts of food in short periods of time, not feeling physically hungry? Yes Do you feel out of control when you eat a large amount of food in a short period of time? Yes Do you eat large amounts of food rapidly and typically alone? Yes Night Eating Do you wake up at least once during the night to eat? No If you wake up in the night, do you find that it is necessary to eat something in order to fall back asleep? No Do you have little or no appetite in the morning and feel very hungry in the evening, often overeating between dinner and when you go to bed? Yes Social History Family history and relationship Pt has been in a relationship with current partner 3 years ago. Mother alive. Father when she was 3 y/o. She has 2 siblings. 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 Developmental history and status None. Social support boyfriend, mother. Community support PCP. Nondenominational/Spirituality Jainism. Cultural/Ethnic information PT is from [place]. Moved to [place] 6 months ago. Bur[place]ian-speaking only. Legal Involvement and History Current or historical involvement with the legal system? None. Education Highest grade completed Bachelors in nursing. Preferred learning style Written and Visual Currently enrolled in educational program? No Interested in further educational program? 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 Employment Employment Status Unemployed Wants help to find employment? No Meaningful activities video games, family activities, watch movies, reading, drawing. Financial Situation Describe current financial situation Often struggles with finance Financial assistance? Food [place] Service Service? No Mental Health and Addiction Treatment Current/Past substance abuse? Yes Comments Cannabis: 3-4 times at week, vaping. Current/Past addictive behavior concerns? No Psychiatric history Pt reports a history of generalized anxiety and dysthymia. Pt doesn't receive therapy. Was seen by a psychologist in may of this year and started taking Xanax 0.25Mg for anxiety prescribed by her previous PCP. Pt reports never had SA but dealt with SI this year. Never inpatient for behavioral health. . However patient reports active Sx of depression and anxiety, and doesn't feel stable. Medical and Physical Health Summary Additional Medical History not covered in history None reported Sexual History concerns None reported Physical exam in the last year? Yes Pain Screening Current pain? No Pain in the last few months? No Comments Knee pain, lower back pain. Medications Is the patient compliant with medications? Yes Does the patient have Beltran Guardian in place? Not applicable Does the patient use complimentary health approaches? No Questionnaires PHQ-9 Over the last 2 weeks, how often have you been bothered by any of the following problems? 1. Little interest or pleasure in doing things: several days 2. Feeling down, depressed, or hopeless: more than half the days 3. Trouble falling or staying asleep, or sleeping too much: nearly every day 4. Feeling tired or having little energy: more than half the days 5. Poor appetite or overeating: more than half the days 6. Feeling bad about yourself - or that you are a failure or have let yourself or your family down: nearly every day 7. Trouble concentrating on things, such as reading the newspaper or watching television: more than half the days 8. Moving or speaking so slowly that other people could have noticed. Or the opposite - being so fidgety or restless that you have been moving around a lot more than usual: several days 9. Thoughts that you would be better off or of hurting yourself in some way: not at all Total score: 16 Depression Screening Interpretation: Positive Depression Screening Done: Yes [id number] - PHQ-9 Billing: Yes Source: Developed by Drs. Hamzah Iyer, Kemi Carver, Micky Lemons and colleagues, with an educational nolvia from [employer]. Binge Eating Scale Group 1 A. I don't feel self-conscious about my wt. or body size when I'm with others. B. I feel concerned about how I look to others, but it normally does not make me fell disappointed with myself C. I do get self-conscious about my appearance and wt. which makes me feel disappointed in myself. D. I feel very self-conscious about my wt. and frequently I feel intense shame and disgust for myself. I try to avoid social contacts because of my self- consciousness. Response Group 1: D Group 2 A. I don't have any difficulty eating slowly in the proper manner. B. Although I seem to gobble down foods, I don't end up feeling stuffed because of eating to much. C. At times, I tend to eat quickly and then, I feel uncomfortably full afterwards. D. I have the habit of bolting down my food, without really chewing it. When this happens I usually feel uncomfortably stuffed because I've eaten to much. Response Group 2: C Group 3 A. I feel capable to control my eating urges when I want to. B. I feel like I have failed to control my eating more than the average person. C. I feel utterly helpless when it comes to feeling in control of my eating urges. D. Because I feel so helpless about controlling my eating I have become very desperate about trying to get control. Response Group 3: C Group 4 A. I don't have the habit of eating when I'm bored. B. I sometimes eat when I'm bored, but often I'm able to get busy and get my mind off food. C. I have a regular habit of eating when I'm bored, but occasionally, I can use some other activity to get my mind off eating. D. I have a strong habit of eating when I'm bored. Nothing seems to help me breath the habit. Response Group 4: B Group 5 A. I'm usually physically hungry when I eat something. B. Occasionally, I eat something on impulse even though I really am not hungry. C. I have the regular habit of eating foods, that I might not really enjoy, to satisfy a hungry feeling even though physically, I don't need the food. D. Although I'm not physically hungry, I get a hungry feeling in my mouth that only seems to be satisfied when I eat a food, like sandwich, that fills my mouth. Sometimes, when I eat the food to satisfy my mouth hunger, I then spit the food out so I won't gain weight. Response Group 5: D Group 6 A. I don't feel any guilt or self-hate after I overeat. B. After I overeat, occasionally I feel guilt or self-hate. C. Almost all the time I experience strong guilt or self-hate after I overeat. Response Group 6: C Group 7 A. I don't lose total control of my eating when dieting even after periods when I overeat. B. Sometimes when I eat a forbidden food on a diet, I feel like I blew it and eat even more. C. Frequently, I have the habit of saying to myself, I've blown it now, why not go all the way, when I overeat on a diet. When that happens I eat more. D. I have a regular habit of starting a strict diets for myself but I break the diets by going on an eating binge. My life seems to be either a feast or famine. Response Group 7: B Group 8 A. I rarely eat so much food that I feel uncomfortably stuffed afterwards. B. Usually about once a month, I each such a quantity of food, I end up feeling very stuffed. C. I have regular periods during the month when I eat large amounts of food, either at mealtime or at snacks. D. I eat so much food that I regularly feel quite uncomfortable after eating and sometimes a bit nauseous. Response Group 8: C Group 9 A. My level of calorie intake does not go up very high or go down very low on a regular basis. B. Sometimes after I overeat, I will try to reduce my caloric intake to almost nothing to compensate for the excess calories I've eaten. C. I have a regular habit of overeating during the night. It seems that my routine is not to be hungry in the morning but overeat in the evening. D. In my adult years, I have had week-long periods where I practically starve myself. This follows periods when I overeat. It seems I live a life of either feast or famine. Response Group 9: B Group 10 A. I usually am able to stop eating when I want to. I know when enough is enough. B. Every so often, I experience a compulsion to eat which I can't seem to control. C. Frequently, I experience strong urges to eat which I seem unable to control, but at other times I can control my eating urges. D. I feel incapable of controlling urges to eat. I have a fear of not being able to stop eating voluntarily. Response Group 10: A Group 11 A. I don't have any problem stopping eating when I feel full. B. I usually can stop eating when I feel full but occasionally overeat leaving me feeling uncomfortably stuffed. C. I have a problem stopping eating once I start and usually I feel uncomfortably stuffed after I eat a meal. D. Because I have a problem not being able to stop eating when I want, I sometimes have to induce vomiting to relieve my stuffed feeling. Response Group 11: B Group 12 A. I seem to eat just as much when I'm with others, Family social gatherings as when I'm by myself. B. Sometimes, when I'm with other persons, I don't eat as much as I want to eat because I'm self-conscious about my eating. C. Frequently, I eat only a small amount of food when others are present, because I'm very embarrassed about my eating. D. I feel so ashamed about overeating that I pick times to overeat when I know no one will see me. I feel like a closet eater. Response Group 12: B Group 13 A. I eat three meals a day with only an occasional between meal snack. B. I eat 3 meals a day, but I also normally snack between meals. C. When I am snacking heavily, I get in the habit of skipping regular meals. D. There are regular periods when I seem to be continually eating, with no planned meals. Response Group 13: C Group 14 A. I don't think much about trying to control unwanted eating urges. B. At least some of the time, I feel my thoughts are pre-occupied with trying to control my eating urges. C. I feel that frequently I spend much time thinking about how much I ate or about trying not to eat anymore. D. It seems to me that most of my waking hours are pre-occupied by thoughts about eating or not eating. I feel like I'm constantly struggling not to eat. Response Group 14: D Group 15 A. I don't think about food a great deal. B. I have strong craving for food but they last only for brief periods of time. C. I have days when I can't seem to think about anything else but food. D. Most of my days seem to be pre-occupied with thoughts about food. I feel like I live to eat. Response Group 15: A Group 16 A. I usually know whether or not I'm physically hungry. I take the right portion of food to satisfy me. B. Occasionally, I feel uncertain about knowing whether or not I'm physically hungry. A these times it's hard to know how much food I should take to satisfy me. C. Even though I might know how many calories I should eat, I don't have any idea what is a normal amount of food for me. Response Group 16: C Binge Eating Score: 26 Score less than 17 Minimal Risk Score between 18-26 Moderate Risk Score between 27-46 High Risk Assessment & Plan Assessment & Plan (1) Depression: Code(s): F32.A - Depression, unspecified Qualifiers: Depression Type: major depressive disorder Major depression recurrence: recurrent Active/Remission status: currently active Major depression episode severity: moderate Qualified Code(s): F33.1 - Major depressive disorder, recu rrent, moderate (2) Generalized anxiety disorder: Code(s): F41.1 - Generalized anxiety disorder Plan Complete parts of assessment in next azalia. We will meet again in about a month. Next azalia: 03/26/23 at 9am- Video. Therapist provided resources to find a therapist and showed how to look for a provider in network with her insurance. Pt is advised to call and request to be placed in multiple waiting list for therapy and medication management. PT not cleared toay. Coding Level of Care Code New Pt Psy Diag Bennett ([id number]) Patient Type New Diagnoses Moderate episode of recurrent major depressive disorder F33.1 Depression Type: major depressive disorder Major depression recurrence: recurrent Active/Remission status: currently active Major depression episode severity: moderate Generalized anxiety disorder F41.1 Time Spent (min) 65
== END 2023-02-26 11:00 | disposition home or self-care (01) ==
PROVIDERS: PCP Internal Medicine; Visit Provider Counselor Mental Health
DX: F33.1 Major depressive disorder, recurrent, moderate (principal); F41.1 Generalized anxiety disorder
CPT/HCPCS: 90791

== ENCOUNTER → 2023-02-26 09:56 | Outpatient (BNVA) | payer OTHER, SELFPAY | PROVIDERS: PCP Internal Medicine; Visit Provider Counselor Mental Health ==

== ENCOUNTER 2023-03-03 13:28 | Outpatient (AMB) | payer OTHER, SELFPAY ==
--- NOTE | 2023-03-03 13:29 | MHC.OFFVISWM ---
Intake VS Expanded 03/03/23 13:38 BP 134/74 Blood Pressure Location Rt brachial Blood Pressure Position Sitting Pulse 70 Pulse Source Pulse Oximeter Temp 97.6 F Temperature Source Temporal Artery Scan Pulse Oximetry 96 Oxygen Delivery Method Room Air Height 5 ft 1 in Weight 201 lb 12.8 oz BMI 38.1 Body Fat % 42.2 Body Fat Mass 85.0 Fat Free Mass 116.6 Visceral Fat Rating 9.0 Body Water % 41.5 Body Water Mass 83.8 Muscle Mass/Score 110.6 Basal Metabolic Rate/Score 1,659 Intake Visit Reasons: (OV) F/U SWL Target Aircraft Technician Required: Yes Target Aircraft Technician Name: office cmi Allergies No Known Allergies Allergy (Verified 03/03/23 13:36) Medication List - Last Reconciled 03/03/23 by MARY Reynoso alprazolam (Xanax) 0.25 mg PO BEDTIME PRN 30 days amitriptyline 10 mg PO BEDTIME 90 days [id number] 50-325-40 mg 1 tab PO Q6H PRN 30 days cholecalciferol (vitamin D3) 325 mcg PO QWEEK cyanocobalamin (vitamin B-12) 250 mcg PO DAILY 90 days thiamine HCl (vitamin B1) 100 mg PO DAILY 90 days Ventolin HFA 90 mcg/actuation (albuterol sulfate) 1 puff inhalation QID 30 days NS HPI HPI Comments History of Present Illness Details The patient is a pleasant 27 year old female who returns to the clinic for pre-operative surgical weight loss management. They were last seen in the office on 02/11/2023, recorded weight at that time was 206.4 pounds, with a BMI of 39. Today's weight is 201.8 pounds and BMI is 38.1. There has been a weight loss of 15.4 pounds since initiating the surgical weight loss program on 01/19/23 with a total body weight loss of 7 %. Pre op work up completed as follows: SWL classes:? []/8 BH appts: f/u 03/26/23 ? ? RD appts: f/u 03/19/23 Labs: 01/23/23-low B1, B12:482 H. pylori: 02/11/23-pos CXR: 01/23/23-nad EK01/23/23-normal ABD U/S: 03/12/23 UGI: 03/12/23 The patient reports she has recovered from her viral illness but has had some right knee pain. She feels the knee pain started about a year ago. She was told to use elliptical but that hurt more so she has been using treadmill. She is moving and has not been able to exercise over the last 2 days. The patient does have a body composition scale. They also have been communicating weekly. She states she has decreased her Metformin to 500 mg daily from BID and her BS have been 90-114. Current meal plan includes: 2 Celebrate Rebuild shakes First shake (1 scoop in 10 oz unsweetened almond milk) at 10am-12pm, Second shake (1 scoop in 10 oz of unsweetened almond milk) at 12pm-2pm 1 protein bar (Coolio bars at [facility] [employer], [employer], [employer]) at 2pm-4pm. Dinner at 6pm (7 forks of protein and 7 forks of salad/vegetables). Another bar at 8pm-10pm. Drinking 64-80 oz of water Current exercise plan includes: Treadmill 4 x per week 400-500 jazmin per session PFSH Surgical History History of colonoscopy History of wisdom tooth extraction Family History Mother Diabetes Asthma Hypertension Father Diabetes Maternal Grandfather Colon cancer Maternal Aunt Colon cancer Social History Housing: Apartment Alcohol intake: never Patient Tobacco Use Status: Never used Tobacco e-Cigarette/Vaping Use: Never Used Second Hand Smoke Exposure: No service: No Current occupational status: unemployed Cognitive needs: No Hearing needs: No Vision needs: Yes Physical Exam Const General: healthy appearing and no acute distress Resp Effort & Inspection: normal respiratory effort Auscultation: clear to auscultation bilaterally Cardio Rate: regular rate Rhythm: regular rhythm GI Auscultation: normal bowel sounds Extrem General: Yes normal to inspection Assessment & Plan Assessment & Plan (1) Obesity (BMI 30-39.9): Code(s): E66.9 - Obesity, unspecified Plan: Patient is doing very well overall. Recommendation is to continue current meal plan and communication weekly. She was reminded of upcoming appointments and will return to the office in 3 weeks time. Coding Level of Care Code Est Pt Level 3 (74263) Diagnoses Obesity (BMI 30-39.9) E66.9
[2023-03-03 13:38] VITALS: BP 134/74; PULSE 70; TEMP 36.4; O2SAT 96; BMI 38.1
== END 2023-03-03 14:03 | disposition home or self-care (01) ==
PROVIDERS: PCP Internal Medicine; Visit Provider Physician Assistant Surgical
DX: E66.9 Obesity, unspecified (principal); Z68.38 Body mass index [BMI] 38.0-38.9, adult
CPT/HCPCS: 99213

== ENCOUNTER → 2023-03-03 13:28 | Outpatient (BNVA) | payer OTHER, SELFPAY | PROVIDERS: PCP Internal Medicine; Visit Provider Physician Assistant Surgical | DX: E66.9 Obesity, unspecified (principal); Z68.38 Body mass index [BMI] 38.0-38.9, adult | CPT/HCPCS: 99212 ==

== ENCOUNTER 2023-03-12 09:24 | Outpatient (REF) | payer OTHER, SELFPAY ==
--- NOTE | ~2023-03-12 | FL_ITS ---
EXAMINATION: XR FLUOROSCOPY UPPER GI WITH AIR CLINICAL INFORMATION: Obesity due to excess calories. Patient personally complaining of mild reflux. COMPARISON: None TECHNIQUE: Fluoroscopic air contrast upper GI examination was performed utilizing standard techniques with thin and thick barium and effervescent granules. Numerous spot images were obtained. Several fluoroscopic image hold cine sequences were also obtained. FINDINGS: Lateral cine images of the oropharynx and hypopharynx demonstrate normal swallow mechanism with normal epiglottic inversion and soft palate elevation. No tracheal penetration, glottic or subglottic aspiration identified. No nasopharyngeal reflux present. Hypopharyngeal structures appear normal without evidence of mass or diverticulum. There was no significant cricopharyngeal achalasia. Dual and single contrast images of the esophagus demonstrate normal caliber, contour, and mucosal pattern. No evidence of stricture, mass, or ulcerations identified. Esophageal peristalsis was normal. No evidence of hiatus hernia identified. No significant gastroesophageal reflux was seen during the course of the examination and on reflux views. Dual contrast and single contrast images of the stomach demonstrated normal contour and mucosal pattern without evidence of mass, ulceration, or other abnormality. Contrast freely passed into the gastric antrum and duodenal bulb without delay. Single and air-contrast images of the duodenal bulb demonstrate no abnormality. The duodenal sweep has a normal appearance, course, and mucosal fold appearance. The imaged proximal jejunum has a normal fold pattern and caliber. FLUOROSCOPY TIME: 3 minutes 56 seconds Number of Spot Images: 9 Number of cines obtained: 10 DOSE AREA PRODUCT: [id number] uGy-m2 (microgray-meter squared) FL/FL upper GI w air IMPRESSION: Normal upper GI examination.
== END 2023-03-12 09:25 | disposition home or self-care (01) ==
LOC: HO.US 09:24
PROVIDERS: PCP Internal Medicine; Visit Provider Physician Assistant Surgical
DX: E66.01 Morbid (severe) obesity due to excess calories (principal); E11.9 Type 2 diabetes mellitus without complications; E55.9 Vitamin D deficiency, unspecified
CPT/HCPCS: 74246; 76705; 76981

== ENCOUNTER → 2023-03-12 09:27 | Outpatient (BNV) | payer OTHER, SELFPAY | PROVIDERS: PCP Internal Medicine; Visit Provider Radiology Diagnostic Radiology | DX: K21.9 Gastro-esophageal reflux disease without esophagitis (principal); E66.01 Morbid (severe) obesity due to excess calories | CPT/HCPCS: 74246 ==

== ENCOUNTER 2023-03-17 08:58 | Outpatient (REF) | payer OTHER, SELFPAY ==
[2023-03-19 16:52] LABS: H Pylori Breath Test Positive (Negative)
== END 2023-03-17 08:59 | disposition home or self-care (01) ==
LOC: HO.LNP 08:58
PROVIDERS: PCP Internal Medicine; Visit Provider Physician Assistant Surgical
DX: E66.01 Morbid (severe) obesity due to excess calories (principal); E11.9 Type 2 diabetes mellitus without complications; E55.9 Vitamin D deficiency, unspecified
CPT/HCPCS: 83013; 99211

== ENCOUNTER 2023-03-19 09:03 | Outpatient (AMB) | payer OTHER, SELFPAY ==
--- NOTE | 2023-03-19 09:09 | MHC.AMNUTRGE ---
Intake Intake Visit Reasons: (OV) F/U SW Special Education Instructor Required: Yes Special Education Instructor Name: Bruna [id number] Abdulkadir Information Interpreted: non-clinical & clinical Allergies No Known Allergies Allergy (Verified 03/03/23 13:36) HPI Nutrition Presentation Reason for consult elevated BMI Diet Assmnt Details Pt accompanied by her fiance today for appt. She shares she has been doing very well in the program. She has concerns about her liver ultrasound such showed some abnormalities. she will be meeting with her uncrater next week and she was encouraged to talk with them. I provided general healthy eating education today, related to potential fatty liver. encouraged consumption of low fat dairy, lean proteins, and lots of vegetables, hydrating with water and general weight loss. [facility] online classes: completed, scored well Dietary counseling reduction Diagnosis Nutrition problem #1 overweight/obesity As related to (etiology) #1 excess energy intake and physical inactivity As evidenced by (sign/symptom) #1 high BMI Monitoring/Goals Nutrition problem monitoring total energy intake, level of knowledge/skill, total PRO intake, total CHO intake and weight Outcome progress progressing Learning/Education Readiness to learn excellent Stages of change action Educational materials provided Yes Most Recent Diabetes Results: No Data to Display [facility] Surgical History History of colonoscopy History of wisdom tooth extraction Family History Mother Diabetes Asthma Hypertension Father Diabetes Maternal Grandfather Colon cancer Maternal Aunt Colon cancer Social History Housing: Apartment Alcohol intake: never Patient Tobacco Use Status: Never used Tobacco e-Cigarette/Vaping Use: Never Used Second Hand Smoke Exposure: No service: No Current occupational status: unemployed Cognitive needs: No Hearing needs: No Vision needs: Yes Assessment & Plan Assessment & Plan (1) Obesity (BMI 30-39.9): Code(s): E66.9 - Obesity, unspecified Plan Patient is cleared from a nutrition standpoint for bariatric surgery. Educational requirements have been completed. Reviewed vitamin supplementation and commitment to protein shake for several months post surgery. Encouraged communication with office as needed Coding Level of Care Code Nutr Indiv Subseq (72173) Diagnoses Obesity (BMI 30-39.9) E66.9 Time Spent (min) 30
== END 2023-03-19 10:03 | disposition home or self-care (01) ==
PROVIDERS: PCP Internal Medicine; Visit Provider Dietitian, Registered
DX: E66.9 Obesity, unspecified (principal)

== ENCOUNTER → 2023-03-19 09:03 | Outpatient (BNVA) | payer OTHER, SELFPAY | PROVIDERS: PCP Internal Medicine; Visit Provider Dietitian, Registered | DX: E66.9 Obesity, unspecified (principal) | CPT/HCPCS: 97803 ==

== ENCOUNTER 2023-03-25 10:00 | Outpatient (AMB) | payer OTHER, SELFPAY ==
--- NOTE | 2023-03-25 10:04 | A.OFFVIS_ITS ---
Intake Vital Signs 03/25/23 10:05 Height 5 ft 1 in Weight 201 lb BMI 38.0 BP 133/71 Blood Pressure Location Lt brachial Position Sitting Pulse 80 Intake Visit Reasons: 8 wk follow up Intake Note: Patient follow up for constipation. Patient cc: abdominal pain on and off, patient is doing better BM. Supervisor Slate Splitting Required: No Accompanied by: Spouse Allergies No Known Allergies Allergy (Verified 03/25/23 10:04) HPI HPI Comments History of Present Illness Details A 27 y/o female dyspepsia, bloating f/u after SIBO she did not do it- brought kit along-in she had not even open it to review instructions She seeing wt management she is HP positive for the 2nd time- she is awaiting antibiotic therapy her is with her- he has never been tested small fungal like area- abdomen- for the past couple months- she also wants to discuss her liver U/S In her appetite is good-following weight management diet Bowels are normal Nausea, vomiting hematemesis, hematochezia fever chills PFSH Surgical History History of colonoscopy History of wisdom tooth extraction Family History Mother Diabetes Asthma Hypertension Father Diabetes Maternal Grandfather Colon cancer Maternal Aunt Colon cancer Social History Housing: Apartment Alcohol intake: never Patient Tobacco Use Status: Never used Tobacco e-Cigarette/Vaping Use: Never Used Second Hand Smoke Exposure: No service: No Current occupational status: unemployed Cognitive needs: No Hearing needs: No Vision needs: Yes Review of Systems Const All systems reviewed & are unremarkable except as noted in HPI and below Card Denies chest pain GI Reports belching, Reports bloating and Reports dyspepsia Physical Exam Vital Signs: Last Vital Signs Pulse 80 03/25/23 10:05 BP 133/71 03/25/23 10:05 BMI result Body Mass Index 38.0 Resp Effort & Inspection: normal respiratory effort and able to speak in complete sentences Skin General skin exam: no rashes or lesions noted Extrem General: Yes full ROM Psych Appearance: grossly normal and well kempt Mental Status: mental status grossly normal Speech and movement: Normal speech and movement present Affect: normal affect Attitude: cooperative Thought process: Normal thought process present Thought content: Normal thought content present Assessment & Plan Assessment & Plan (1) NAFLD (nonalcoholic fatty liver disease): Comment: Reviewed liver ultrasound most likely NAFLD Code(s): K76.0 - Fatty (change of) liver, not elsewhere classified Plan: Repeat liver enzymes six-month Lifestyle change (2) Bloating: Comment: H pylori awaiting therapy Code(s): R14.0 - Abdominal distension (gaseous) Plan: Follow-up weight management for therapy for H pylori Will test Plan Will complete therapy for H pylori to test Reviewed NAFLD Patient Instructions: Encouraged to complete therapy for H pylori Cannot do SIBO test well taking antibiotics refer to instructions accompanied in kit to test for H pylori Reviewed NAFLD Good weight, glucose and cholesterol control Abstain from alcohol Avoid sedentary lifestyle She will call for follow-up per her request Coding Level of Care Code New Pt Level 3 (38874) Diagnoses NAFLD (nonalcoholic fatty liver disease) K76.0 Bloating R14.0 Time Spent (min) 30
[2023-03-25 10:05] VITALS: BP 133/71; PULSE 80; BMI 38.0
== END 2023-03-25 11:45 | disposition home or self-care (01) ==
PROVIDERS: PCP Internal Medicine; Visit Provider Physician Assistant
DX: K76.0 Fatty (change of) liver, not elsewhere classified (principal); R14.0 Abdominal distension (gaseous)
CPT/HCPCS: 99214

== ENCOUNTER → 2023-03-25 10:00 | Outpatient (BNVA) | payer OTHER, SELFPAY | PROVIDERS: PCP Internal Medicine; Visit Provider Physician Assistant | DX: K76.0 Fatty (change of) liver, not elsewhere classified (principal); R14.0 Abdominal distension (gaseous) | CPT/HCPCS: 99212 ==

== ENCOUNTER 2023-03-26 09:00 | Outpatient (AMB) | payer OTHER, SELFPAY ==
--- NOTE | 2023-03-26 09:09 | A.OFFWM_ITS ---
Intake Intake Visit Reasons: VIDEO BH F/U Allergies No Known Allergies Allergy (Verified 03/25/23 10:04) [facility] Surgical History History of colonoscopy History of wisdom tooth extraction Family History Mother Diabetes Asthma Hypertension Father Diabetes Maternal Grandfather Colon cancer Maternal Aunt Colon cancer Social History Housing: Apartment Alcohol intake: never Patient Tobacco Use Status: Never used Tobacco e-Cigarette/Vaping Use: Never Used Second Hand Smoke Exposure: No service: No Current occupational status: unemployed Cognitive needs: No Hearing needs: No Vision needs: Yes Behavioral Health Assessment Weight Management Therapy Therapy Notes Details PT presents for a follow up. Pt reports she is doing better, feeling Sx are better. Today we repeated PHQ-9 and scores still high indicating active Sx of depression. We worked in stabilization of Sx and Sx management strategies using CBT-based techniques. Recommended start implementing behavioral activation plan, and provided with a therapeutic journal to use daily even if doing better. Pt will be seen again for support until she establish care with a provider for consistent and frequent counseling sessions. Presenting Concerns Referral Source P Provider. Pt sees ALBERTINA. Initially referred by PCP. Reason for referral Completion of behavioral health assessment as part of process for weight-loss surgery. Precipitating Event Obesity, Type 2 diabetes. Living Situation Current Living Situation Rent At risk of losing current housing? No Satisfied with current living situation? Yes Comments Pt lives with boyfriend. Food/Weight/Diet Expectations of change Pt wants to be at least 150Lbs. Initial goal is to lose 10% of her weight before surgery, which is about 21 lbs. Ultimate weight goal: 196 Lbs before surgery. History/Relationship with food Pt reports he used to skip meals, snacking here and there. History/Relationship with weight Always been overweight. Max weight 232Lbs and lowest weight in last 10 years 180-190Lbs when graduated HS. History/Relationship with dieting Usually sticks to diets/programs for 2-3 months. Binge Eating Do you frequently eat large amounts of food in short periods of time, not feeling physically hungry? Yes Do you feel out of control when you eat a large amount of food in a short period of time? Yes Do you eat large amounts of food rapidly and typically alone? Yes Night Eating Do you wake up at least once during the night to eat? No If you wake up in the night, do you find that it is necessary to eat something in order to fall back asleep? No Do you have little or no appetite in the morning and feel very hungry in the evening, often overeating between dinner and when you go to bed? Yes Social History Family history and relationship Pt has been in a relationship with current partner 3 years ago. Mother alive. Father when she was 3 y/o. She has 2 siblings. Parental/Familial rheumatology specialist obligations None. Developmental history and status None. Social support boyfriend, mother. Community support PCP. Muslim/Spirituality Quaker. Cultural/Ethnic information PT is from [place]. Moved to [place] 6 months ago. Surinamese-speaking only. Legal Involvement and History Current or historical involvement with the legal system? None. Education Highest grade completed Bachelors in nursing. Preferred learning style Written and Visual Currently enrolled in educational program? No Interested in further educational program? 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 Employment Employment Status Unemployed Wants help to find employment? No Meaningful activities video games, family activities, watch movies, reading, drawing. Financial Situation Describe current financial situation Often struggles with finance Financial assistance? Food Liberal Service Service? No Mental Health and Addiction Treatment Current/Past substance abuse? Yes Comments Cannabis: 3-4 times at week, vaping. Current/Past addictive behavior concerns? No Psychiatric history Pt reports a history of generalized anxiety and dysthymia. Pt doesn't receive therapy. Was seen by a psychologist in may of this year and started taking Xanax 0.25Mg for anxiety prescribed by her previous PCP. Pt reports never had SA but dealt with SI this year. Never inpatient for behavioral health. . However patient reports active Sx of depression and anxiety, and doesn't feel stable. Medical and Physical Health Summary Additional Medical History not covered in history None reported Sexual History concerns None reported Physical exam in the last year? Yes Pain Screening Current pain? No Pain in the last few months? No Comments Knee pain, lower back pain. Medications Is the patient compliant with medications? Yes Does the patient have Beltran Guardian in place? Not applicable Does the patient use complimentary health approaches? No Trauma/Abuse History History of trauma? No Questionnaires PHQ-9 Over the last 2 weeks, how often have you been bothered by any of the following problems? 1. Little interest or pleasure in doing things: several days 2. Feeling down, depressed, or hopeless: several days 3. Trouble falling or staying asleep, or sleeping too much: nearly every day 4. Feeling tired or having little energy: more than half the days 5. Poor appetite or overeating: not at all 6. Feeling bad about yourself - or that you are a failure or have let yourself or your family down: not at all 7. Trouble concentrating on things, such as reading the newspaper or watching television: more than half the days 8. Moving or speaking so slowly that other people could have noticed. Or the opposite - being so fidgety or restless that you have been moving around a lot more than usual: several days 9. Thoughts that you would be better off or of hurting yourself in some way: not at all Total score: 10 Depression Screening Interpretation: Positive Depression Screening Follow-up: Existing condition and Follow-up Visit Requested Depression Screening Done: Yes 41473 - PHQ-9 Billing: Yes Source: Developed by Drs. Hamzah Iyer, Kemi Carver, Micky Lemons and colleagues, with an educational nolvia from [employer]. Assessment & Plan Assessment & Plan (1) Depression: Code(s): F32.A - Depression, unspecified (2) Generalized anxiety disorder: Code(s): F41.1 - Generalized anxiety disorder Plan PT still not clear. If patient is ready for surgery, she will be a good candidate and can move forward as long she gets support, since PT is presenting with active depression and she needs support with Sx management. She will meet with pr again and will be referred to [facility] for treatment. Next azalia in 3-4 weeks. 04/22/23 at 9am, via telehealth. Telehealth Telehealth Location of provider rendering services: other (Home office. [place], [place]) Location of patient: address on file Patient Identification confirmed using: Name, : Yes Telehealth method: video Patient verbally consented to treatment: Yes Patient verbally consented to billing insurance company: Yes Patient informed of any privacy concerns related to visit: No Minutes spent on Phone/Video with Pt.: 55 Coding Level of Care Code Established Pt Tele Psytx >53 mins (51666) Patient Type Established Diagnoses Depression F32.A Generalized anxiety disorder F41.1 Time Spent (min) 55
== END 2023-04-01 12:39 | disposition home or self-care (01) ==
LOC: HO.HBST 09:19
PROVIDERS: PCP Internal Medicine; Visit Provider Counselor Mental Health
DX: F32.A Depression, unspecified (principal); F41.1 Generalized anxiety disorder
CPT/HCPCS: 90837

== ENCOUNTER → 2023-03-26 09:00 | Outpatient (BNVA) | payer OTHER, SELFPAY | PROVIDERS: PCP Internal Medicine; Visit Provider Counselor Mental Health ==

== ENCOUNTER 2023-04-17 09:51 | Outpatient (REF) | payer OTHER, SELFPAY ==
[2023-04-17 11:26] LABS: Alanine Aminotransferase 23 U/L (0-31); Albumin Level 4.4 g/dL (3.5-5.0); Alkaline Phosphatase 73 U/L (39-117); Anion Gap 14 (12-20); Aspartate Amino Transferase 18 U/L (5-31); Bilirubin Total 0.5 mg/dL (0.0-1.0); Blood Urea Nitrogen 15 mg/dL (9-16); Carbon Dioxide 25 mmol/L (22-29); Chloride 104 mmol/L (96-108); Cholesterol 218 mg/dL (<200); Estimated Glomerular Filt Rate > 60; Glucose Fasting 118 mg/dL (60-99); HDL Cholesterol 56 mg/dL (>40); LDL Cholesterol Calculated 145 mg/dL (<100); Potassium 3.9 mmol/L (3.3-5.1); Sodium 139 mmol/L (135-145); Total Protein 7.8 g/dL (6.5-8.0); Triglycerides 85 mg/dL (<150)
[2023-04-17 12:39] LABS: Creatinine Urine 164.24 mg/dL; Microalbum/Creatinine Ratio Ur 6.6 ug/mg cr (<30)
== END 2023-04-17 09:52 | disposition home or self-care (01) ==
LOC: HO.LAB 09:51
PROVIDERS: PCP Internal Medicine; Visit Provider Internal Medicine
DX: E78.5 Hyperlipidemia, unspecified (principal); E11.9 Type 2 diabetes mellitus without complications
CPT/HCPCS: 36415; 80053; 80061; 82043; 82570

== ENCOUNTER 2023-04-21 10:46 | Outpatient (AMB) | payer OTHER, SELFPAY ==
[2023-04-21 10:51] VITALS: BP 132/86; BMI 38.7
--- NOTE | 2023-04-21 10:51 | MHC.PC.OV ---
Vital Signs 04/21/23 10:51 Height 5 ft 1 in Weight 205 lb BMI 38.7 BP 132/86 Blood Pressure Location Lt brachial Position Sitting Intake Visit Reasons: Annual exam Intake Note: Patient here for a physical exam, spots on body, sleep study request Waterproofer Required: No Accompanied by: Self / Same As Patient Allergies No Known Allergies Allergy (Verified 04/21/23 11:12) Medication List - Last Reconciled 04/21/23 by Haydee Davalos MD alprazolam (Xanax) 0.25 mg PO BEDTIME PRN 30 days amitriptyline 10 mg PO BEDTIME 90 days mafmpzcuyv-yckdcmoplrjcj-jjeh 50-325-40 mg 1 tab PO Q6H PRN 30 days cholecalciferol (vitamin D3) 325 mcg PO QWEEK cyanocobalamin (vitamin B-12) 250 mcg PO DAILY 90 days metformin 500 mg PO BID omeprazole 40 mg PO BID 14 days thiamine HCl (vitamin B1) 100 mg PO DAILY 90 days Ventolin HFA 90 mcg/actuation (albuterol sulfate) 1 puff inhalation QID 30 days NS Tobacco use date assessed: 04/21/23 Dental Screening Dental Screen Date: 04/21/23 Did you have a dental visit in the last 12 months?: Yes Did you have a dental problem in the last 6 months where you did not have access to dental care?: No Was dental information given to patient?: Patient has dentist HPI HPI Comments History of Present Illness Details This is a 27-year-old female with diabetes mellitus type 2, mild major depression and severe obesity that comes for her physical exam. A1c within goal. Would like Psychiatry for her depression. She is obese with a BMI of 38.7 and she will call us with weight management. Pap smear up-to-date. Complains of severly dozing off while sitting and reading, watching TV, resting if the afternoon after lunch and while lying down when circumstances permit with an Mulberry score Scale of 12. LDL not on goal and I will add statins. PFSH Surgical History History of colonoscopy History of wisdom tooth extraction Family History Mother Diabetes Asthma Hypertension Father Diabetes Maternal Grandfather Colon cancer Maternal Aunt Colon cancer Social History Housing: Apartment Alcohol intake: never Patient Tobacco Use Status: Never used Tobacco e-Cigarette/Vaping Use: Currently Using (sometimes) Second Hand Smoke Exposure: No service: No Current occupational status: unemployed Cognitive needs: No Hearing needs: No Vision needs: Yes Questionnaire PHQ-9 Over the last 2 weeks, how often have you been bothered by any of the following problems? 1. Little interest or pleasure in doing things: not at all 2. Feeling down, depressed, or hopeless: more than half the days 3. Trouble falling or staying asleep, or sleeping too much: nearly every day 4. Feeling tired or having little energy: nearly every day 5. Poor appetite or overeating: several days 6. Feeling bad about yourself - or that you are a failure or have let yourself or your family down: not at all 7. Trouble concentrating on things, such as reading the newspaper or watching television: several days 8. Moving or speaking so slowly that other people could have noticed. Or the opposite - being so fidgety or restless that you have been moving around a lot more than usual: not at all 9. Thoughts that you would be better off or of hurting yourself in some way: not at all Total score: 10 Depression Screening Interpretation: Positive Depression Screening Follow-up: Existing condition and In treatment Depression Screening Done: Yes 00600 - PHQ-9 Billing: Yes Source: Developed by Drs. Hamzah Iyer, Kemi Carver, Micky Lemons and colleagues, with an educational nolvia from [employer]. Thrive Questionnaire Date Thrive assessed: 04/21/23 I am a: Patient What is your living situation today?: I have a steady place to live Within the past 12 months, did the food you bought not last and you didn't have the money to get more?: Never true Within the past 12 months, did you worry whether your food would run out before you got money to buy more?: Never true Do you have trouble paying for medicines?: No Do you have trouble getting transportation to medical appointments?: No Do you have trouble paying your heating and electricity bill?: No Do you have trouble taking care of your child, family member or friend?: No Do you have trouble with day-to-day activities such as bathing, preparing meals, shopping, managing finances, etc.?: No Are you currently unemployed and looking for a job?: No Are you interested in more education?: No Please select the resources that you would like help with: None Currently or been in a relationship where the following occur: no concerns reported THRIVE Score: 0 AUDIT C Alcohol Use Questionnaire (AUDIT-C) 1. How often do you have a drink containing alcohol?: Never Total Score: 0 COCO-7 AMB Questionnaire COCO-7 Date COCO - 7 assessed: 04/21/23 Feeling nervous, anxious, or on edge: 3 = Nearly every day Not being able to stop or control worryin = Several days Worrying too much about different things: 3 = Nearly every day Trouble relaxin = Several days Being so restless that it is hard to sit still: 0 = Not at all Becoming easily annoyed or irritable: 1 = Several days Feeling afraid as if something awful might happen: 3 = Nearly every day Total COCO-7 score (0-4 normal; 5-9 mild; 10-14 moderate; 15-21 severe): 12 Source: Developed by Drs. Hamzah Iyer, Kemi Carver, Micky Lemons and colleagues, with an educational nolvia from [employer]. COCO-7 Assessment Billing COCO-7 Assessment Tool: COCO-7 Assessment 26285 Review of Systems Const All systems reviewed & are unremarkable except as noted in HPI and below Eyes Reports no additional complaints, Denies change in vision and Denies other visual disturbances Card Denies chest pain at rest, Denies chest pain with activity, Denies edema, Denies irregular heart rhythm, Denies claudication, Denies dyspnea, Denies dyspnea on exertion, Denies orthopnea, Denies paroxysmal nocturnal dyspnea and Denies slow heart rate Resp Denies cough, Denies dyspnea and Denies dyspnea on exertion GI Denies abdominal pain, Denies change in bowel habits, Denies excessive flatus, Denies nausea and Denies vomiting Denies urinary incontinence, Denies urinary hesitancy and Denies urinary urgency Musc Denies abnormal gait, Denies atrophy, Denies deformity and Denies limited range of motion Skin/Breast Denies bleeding lesions, Denies changing lesions and Denies rash Neuro Denies abnormal gait and Denies lack of coordination Physical exam (Primary Care) Vital Signs: Last Vital Signs BP 132/86 04/21/23 10:51 BMI result Body Mass Index 38.7 Tobacco/Smoking Status: Tobacco use Status Tobacco use date assessed 04/21/23 04/21/23 11:08 Patient Tobacco Use Status Never used Tobacco 04/21/23 10:59 e-Cigarette/Vaping Use Never Used 04/21/23 10:59 PHQ-9: PHQ-9 Score PHQ-9: Total score 10 04/21/23 11:17 Depression Screening Interpretation: Positive Depression Screening Follow-up: Existing condition and In treatment Thrive Assessment: Date of Thrive Assessment Date Thrive assessed 04/21/23 04/21/23 11:08 Currently or been in a relationship where the following occur: no concerns reported Const Orientation/consciousness: patient oriented x3 HENMT Head: Yes normal to inspection, Yes normocephalic and Yes atraumatic Ears: external ears normal Eyes General: appearance normal, both eyes and all related structures Eyelids: Yes eyelids normal Conjunctivae: conjunctivae normal Neck Neck: Yes normal visual inspection and Yes supple Resp Effort & Inspection: normal respiratory effort Auscultation: clear to auscultation bilaterally Cardio Jugular venous distension: no JVD Rate: regular rate Rhythm: regular rhythm Heart sounds: S1 normal heart sound present and S2 normal heart sound present GI Inspection: Yes normal to inspection Palpation (GI): Soft to palpation and nontender Auscultation: normal bowel sounds Skin General skin exam: no rashes or lesions noted Neuro General: patient oriented x3 and no focal motor deficits Extrem General: Yes full ROM Psych Appearance: grossly normal Office Procedures Flu Questionnaire Does the patient have a severe egg allergy?: No Results AMB Hemoglobin A1c AMB Hemoglobin A1c 6.2 % Last Edit by STANLEY Smalls on 04/21/23 11:25 Immunizations flu vacc [id number] 6mos up(PF) 60 mcg(15 mcgx4)/0.5 mL IM syringe Performing Provider: Haydee Davalos MD [facility] Documented (not given) by: STANLEY Smalls on 04/21/23 11:09 Reason Not Given: Patient Refused Assessment and Plan Assessment & Plan (1) Physical exam: Code(s): Z00.00 - Encounter for general adult medical examination without abnormal findings Plan: Repeat in a year. (2) Severe obesity (BMI 35.0-39.9) with comorbidity: Comment: Weight management Code(s): E66.01 - Morbid (severe) obesity due to excess calories Plan: Start diet and exercise. BMI goal is less than 30. (3) Diabetes mellitus: Code(s): E11.9 - Type 2 diabetes mellitus without complications Plan: Continue metformin. Keep A1c within goal being less than 7%. (4) Mild major depression: Code(s): F32.0 - Major depressive disorder, single episode, mild Plan: Referred to Psychiatry. Orders: Orders Influenza [id number] Immunization Today Z23 - Encounter for immunization AMB Hemoglobin A1c Today E11.9 - Type 2 diabetes mellitus without complications RT home sleep study Today R40.0 - Somnolence Medications: New atorvastatin 20 mg PO BEDTIME 90 days 90 tabs 0RF E78.5 - Hyperlipidemia, unspecified Coding Level of Care Code Est Pt Prev Care 18-39y(67715) Diagnoses Physical exam Z00.00 Severe obesity (BMI 35.0-39.9) with comorbidity E66.01 Diabetes mellitus E11.9 Mild major depression F32.0 Additional Codes COCO-7 Assessment Billing - COCO-7 Assessment Tool: COCO-7 Assessment 38681 ([id number]) Time Spent (min) 35
== END 2023-04-21 11:25 | disposition home or self-care (01) ==
PROVIDERS: PCP Internal Medicine; Visit Provider Internal Medicine
DX: Z00.00 Encounter for general adult medical examination without abnormal findings (principal); E66.01 Morbid (severe) obesity due to excess calories; E11.9 Type 2 diabetes mellitus without complications; Z68.38 Body mass index [BMI] 38.0-38.9, adult; F32.0 Major depressive disorder, single episode, mild
CPT/HCPCS: 83036; 96127; 99395

== ENCOUNTER 2023-04-22 10:05 | Outpatient (AMB) | payer OTHER, SELFPAY ==
--- NOTE | 2023-04-22 09:11 | A.OFFWM_ITS ---
Intake Intake Visit Reasons: VIDEO BH F/U Allergies No Known Allergies Allergy (Verified 04/21/23 11:12) [facility] Surgical History History of colonoscopy History of wisdom tooth extraction Family History Mother Diabetes Asthma Hypertension Father Diabetes Maternal Grandfather Colon cancer Maternal Aunt Colon cancer Social History Housing: Apartment Alcohol intake: never Patient Tobacco Use Status: Never used Tobacco e-Cigarette/Vaping Use: Currently Using (sometimes) Second Hand Smoke Exposure: No service: No Current occupational status: unemployed Cognitive needs: No Hearing needs: No Vision needs: Yes Behavioral Health Assessment Weight Management Therapy Therapy Notes Details PT presents for a F/up PT reports she feels uncertain about moving forward with surgery due to cases/histories about bad results she have seen in social media. PT reports lexis mood has been better in general , been anxious regularly and sensitive. Interventions -Supportive listening, discussed functio kenya and concerns around having bariatric surgery. -Used cognitive restructuration for curr ent irrational thoughts funded by social media content and provided with evidenced based statements to address biased and fearful thinking. - Discussed about daily routine, meal pl an and exercise plan. Reinforced engagement in habit building exercises such as behavioral activation plan to organize her days and include meals and exercise routine. -Case management. PT was referred to [facility] for med management and [facility] [place] for Counseling. Response: PT was open, active and engaged. She responded well to interventions. Advised to share with provider about doubts re: surgery for further guidance and support. Plan -Encourage client to schedule another vi sit with gas specialist to get advise about variety and alternative of foods. -Advised to discuss with splitter hand or PCP a bout control options. Assessment & Plan Assessment & Plan (1) Depression: Code(s): F32.A - Depression, unspecified (2) Generalized anxiety disorder: Code(s): F41.1 - Generalized anxiety disorder Plan Clearance pending upon client starting counseling services. She will follow up with me again in about a month for support. Pt has been advised to f/up on these referals. Next azalia: 05/27/23 at 9am - video. Telehealth Telehealth Location of provider rendering services: other Location of patient: address on file Patient Identification confirmed using: Name, : Yes Telehealth method: video Patient verbally consented to treatment: Yes Patient verbally consented to billing insurance company: Yes Patient informed of any privacy concerns related to visit: No Minutes spent on Phone/Video with Pt.: 60 Coding Level of Care Code Established Pt Tele Psytx >53 mins ([id number]) Patient Type Established Diagnoses Depression F32.A Generalized anxiety disorder F41.1 Time Spent (min) 60
== END 2023-04-22 10:07 | disposition home or self-care (01) ==
LOC: HO.HBST 10:05
PROVIDERS: PCP Internal Medicine; Visit Provider Counselor Mental Health
DX: F32.A Depression, unspecified (principal); F41.1 Generalized anxiety disorder
CPT/HCPCS: 90837

== ENCOUNTER → 2023-04-22 10:05 | Outpatient (BNVA) | payer OTHER, SELFPAY | PROVIDERS: PCP Internal Medicine; Visit Provider Counselor Mental Health | DX: F32.A Depression, unspecified (principal); F41.1 Generalized anxiety disorder ==

== ENCOUNTER 2023-04-27 | Outpatient (REF) | payer OTHER, SELFPAY ==
[2023-05-01 10:35] LABS: H Pylori Breath Test Negative (Negative)
== END 2023-04-27 00:01 | disposition home or self-care (01) ==
LOC: HO.LNP
PROVIDERS: Visit Provider Physician Assistant Surgical
DX: E66.9 Obesity, unspecified (principal); Z11.0 Encounter for screening for intestinal infectious diseases
CPT/HCPCS: 83013

== ENCOUNTER → 2023-04-27 08:59 | Outpatient (BNVA) | payer OTHER, SELFPAY | PROVIDERS: PCP Internal Medicine; Visit Provider Physician Assistant Surgical | DX: Z11.0 Encounter for screening for intestinal infectious diseases (principal) | CPT/HCPCS: 99211 ==

== ENCOUNTER 2023-05-01 11:29 | Outpatient (AMB) | payer OTHER, SELFPAY ==
--- NOTE | 2023-05-01 11:32 | MHC.OFFVISWM ---
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 Allergies No Known Allergies Allergy (Verified 05/01/23 11:35) Medication List - Last Reconciled 05/01/23 by MARY Reynoso alprazolam (Xanax) 0.25 mg PO BEDTIME PRN 30 days amitriptyline 10 mg PO BEDTIME 90 days atorvastatin 20 mg PO BEDTIME 90 days [id number]-dvmzerzacdgkd-vvxf 50-325-40 mg 1 tab PO Q6H PRN 30 days cholecalciferol (vitamin D3) 325 mcg PO QWEEK clotrimazole-betamethasone 1-0.05 % 1 appl topical BID 2 weeks cyanocobalamin (vitamin B-12) 250 mcg PO DAILY 90 days omeprazole 40 mg PO BID 14 days thiamine HCl (vitamin B1) 100 mg PO DAILY 90 days Ventolin HFA 90 mcg/actuation (albuterol sulfate) 1 puff inhalation QID 30 days NS HPI HPI Comments History of Present Illness Details The patient is a pleasant 27 year old female who returns to the clinic for pre-operative surgical weight loss management. They were last seen in the office on 03/03/2023, recorded weight at that time was 201.8 pounds, with a BMI of 38.1. Today's weight is 200.6 pounds and BMI is 37.9. There has been a weight loss of 16.6 pounds since initiating the surgical weight loss program on 01/19/2023 with a total body weight loss of 7.6 %. Pre op work up completed as follows: SWL classes:? 10/21 BH appts: 04/22/23-cleared if starting BH therapy - states she is awaiting ? ? RD appts: cleared-03/19/23 Labs: 01/23/23-low B1, B12:482 H. pylori: 02/11/23-pos, 03/17/23-pos, 04/27/23-neg CXR: 01/23/23-nad EK01/23/23-normal ABD U/S: 03/12/23-fatty liver UGI: 03/12/23-normal The patient reports she has had some right knee pain, but is able to wexercise. She feels the knee pain started about a year ago. She was told to use elliptical but that hurt more so she has been using treadmill. The patient does have a body composition scale. They also have been communicating weekly. She states she has stopped her Metformin to 500 mg her BS have been 90-110. Now HgbA1c 6.2 Current meal plan includes: 2 Celebrate Rebuild shakes First shake (1 scoop in 10 oz unsweetened almond milk) at 10am-12pm, Second shake (1 scoop in 10 oz of unsweetened almond milk) at 12pm-2pm 1 protein bar (Celebrate bars at [facility] [employer], [employer] [place]) at 2pm-4pm. Dinner at 6pm (7 forks of protein and 7 forks of salad/vegetables). Another bar at 8pm-10pm. Drinking 64-80 oz of water Current exercise plan includes: Treadmill 4-5 x per week 300-400 jazmin per session She had hurt her back and had to take a week off from the gym. No returned. [facility] Surgical History History of colonoscopy History of wisdom tooth extraction Family History Mother Diabetes Asthma Hypertension Father Diabetes Maternal Grandfather Colon cancer Maternal Aunt Colon cancer Social History Housing: Apartment Alcohol intake: never Patient Tobacco Use Status: Never used Tobacco e-Cigarette/Vaping Use: Currently Using (sometimes) Second Hand Smoke Exposure: No service: No Current occupational status: unemployed Cognitive needs: No Hearing needs: No Vision needs: Yes Physical Exam Const General: healthy appearing and no acute distress Resp Effort & Inspection: normal respiratory effort Auscultation: clear to auscultation bilaterally Cardio Rate: regular rate Rhythm: regular rhythm GI Auscultation: normal bowel sounds Extrem General: Yes normal to inspection Assessment & Plan Assessment & Plan (1) Obesity (BMI 30-39.9): Code(s): E66.9 - Obesity, unspecified Plan: Patient is doing very well with her weight loss. We will refer her to Dr. Isaac for continued preoperative care. She states that she is engaging in behavioral health therapy and awaiting a call back. Repeat H pylori has come back negative. We will change her meal plans slightly, to exclude the afternoon protein bar. She certainly may have a half a cup of fresh berries if she wishes. Continue exercise with a goal of 300 calories burned daily. Medications: Refilled cyanocobalamin (vitamin B-12) 250 mcg PO DAILY 90 days 90 tabs 1RF thiamine HCl (vitamin B1) 100 mg PO DAILY 90 days 90 tabs 1RF Coding Level of Care Code Est Pt Level 3 (35394) Diagnoses Obesity (BMI 30-39.9) E66.9
[2023-05-01 11:42] VITALS: BP 141/75; PULSE 87; TEMP 36.7; O2SAT 98; BMI 37.9
== END 2023-05-01 12:10 | disposition home or self-care (01) ==
PROVIDERS: PCP Internal Medicine; Visit Provider Physician Assistant Surgical
DX: E66.9 Obesity, unspecified (principal); Z68.37 Body mass index [BMI] 37.0-37.9, adult
CPT/HCPCS: 99213

== ENCOUNTER → 2023-05-01 11:29 | Outpatient (BNVA) | payer OTHER, SELFPAY | PROVIDERS: PCP Internal Medicine; Visit Provider Physician Assistant Surgical | DX: E66.9 Obesity, unspecified (principal); Z68.37 Body mass index [BMI] 37.0-37.9, adult | CPT/HCPCS: 99212 ==

== ENCOUNTER 2023-05-27 09:46 | Outpatient (AMB) | payer OTHER, SELFPAY ==
--- NOTE | 2023-05-27 09:30 | MHC.WMTHER ---
Intake Intake Visit Reasons: VIDEO F/U Allergies No Known Allergies Allergy (Verified 06/01/23 15:14) [facility] Medical History Hyperlipidemia LDL goal <70 Mild asthma Surgical History History of colonoscopy History of wisdom tooth extraction Family History Mother Diabetes Asthma Hypertension Father Diabetes Maternal Grandfather Colon cancer Maternal Aunt Colon cancer Social History Housing: Apartment Alcohol intake: never Patient Tobacco Use Status: Never used Tobacco e-Cigarette/Vaping Use: Currently Using (sometimes) Second Hand Smoke Exposure: No Advance Directives: No Advance Directives Information Provided: No service: No Current occupational status: unemployed Cognitive needs: No Hearing needs: No Vision needs: Yes Behavioral Health Assessment Weight Management Therapy Therapy Notes Details PT presents for a follow up today. She reports been feeling well, having more good days than bad days. On the other hand, she will start counseling today, she will have an intake later in the day with [facility]. Interventions: Supportive listening and CBT-based interventions for habit building and Sx management. Response and Plan: Pt will be seen again in about 6 weeks. She is cleared from standpoint but will need support. PT also agreed to discuss with provider about control if wants to move forward with surgery. Assessment & Plan Assessment & Plan (1) Depression: Code(s): F32.A - Depression, unspecified (2) Generalized anxiety disorder: Code(s): F41.1 - Generalized anxiety disorder Plan Follow up in 6 weeks. Next azalia 07/07/23 at 9am, via telehealth. Telehealth Telehealth Location of provider rendering services: practice address Location of patient: address on file Patient Identification confirmed using: Name, : Yes Telehealth method: video Patient verbally consented to treatment: Yes Patient verbally consented to billing insurance company: Yes Patient informed of any privacy concerns related to visit: Yes Minutes spent on Phone/Video with Pt.: 60 Coding Level of Care Code Established Pt Tele Psytx >53 mins (59828) Patient Type Established Diagnoses Depression F32.A Generalized anxiety disorder F41.1 Time Spent (min) 60
== END 2023-06-03 14:55 | disposition home or self-care (01) ==
PROVIDERS: PCP Internal Medicine; Visit Provider Counselor Mental Health
DX: F32.A Depression, unspecified (principal); F41.1 Generalized anxiety disorder
CPT/HCPCS: 90837

== ENCOUNTER → 2023-05-27 09:46 | Outpatient (BNVA) | payer OTHER, SELFPAY | PROVIDERS: PCP Internal Medicine; Visit Provider Counselor Mental Health | DX: F32.A Depression, unspecified (principal); F41.1 Generalized anxiety disorder ==

== ENCOUNTER → 2023-05-29 08:01 | Outpatient (BNVA) | payer OTHER, SELFPAY | PROVIDERS: PCP Internal Medicine; Visit Provider Surgery ==

== ENCOUNTER 2023-05-29 23:26 | Emergency (ER) | payer OTHER, SELFPAY ==
--- NOTE | ~2023-05-29 | US_ITS ---
EXAMINATION: US OBSTETRICAL ULTRASOUND CLINICAL INFORMATION: Patient with cramping and spotting. COMPARISON: None available. LMP: 04/09/2023. Gestational age by maternal dates is 7 weeks and 2 days Estimated date of delivery by maternal dates is 01/14/2024. TECHNIQUE: Transabdominal and transvaginal obstetrical ultrasound performed. FINDINGS: There is a single intrauterine gestational sac with visible yolk sac, embryo/fetus, and cardiac activity. There is a 0.8 x 0.2 x 0.6 cm hypoechoic area adjacent to the gestational sac. HR: 124 beats per minute. CRL (crown rump length): 0.72 cm (6 weeks and 5 days +/- 4 days). CYRIL (estimated date of delivery): 01/18/2024 +/- 4 days. MATERNAL ADNEXA: The right maternal ovary measures 2.7 x 1.6 x 2.1 cm. The left maternal ovary measures 2.9 x 2.5 x 2.8 cm. There is no significant maternal adnexal mass. No maternal pelvic ascites. US/US OB pelvic and transvaginal IMPRESSION: 1. Single intrauterine gestation with ultrasound gestational age of 6 weeks and 5 days +/- 4 days. 2. Estimated date of delivery is 01/18/2024 +/- 4 days. 3. No maternal adnexal mass or pelvic ascites. 4. Small subchorionic hemorrhage
[2023-05-29 23:53] VITALS: BP 142/75; PULSE 95; RESP 18; TEMP 36.7; O2SAT 99; BMI 37.8
[2023-05-30 00:27] LABS: MANUAL DIFF FLAG NO
[2023-05-30 00:29] LABS: Basophils Percent Auto 0.4 % (0-2); Eosinophils Absolute Auto 0.3 X10*3/uL (0.0-0.4); Eosinophils Percent Auto 2.9 % (0-4); Hematocrit 42.2 % (37.0-47.0); Hemoglobin 14.4 g/dl (12.0-16.0); Imm Gran Abs Auto 0.03 X10*3/uL (0.00-0.03); Imm Gran Pct Auto 0.3 % (0.0-0.4); Lymphocytes Absolute Auto 3.7 X10*3/uL (1.2-4.9); Lymphocytes Percent Auto 34.4 % (20-40); Mean Corpuscular HGB Conc 34.1 g/dl (31.0-35.0); Mean Corpuscular Hemoglobin 29.8 pg (27.0-33.0); Mean Corpuscular Volume 87.2 fL (80.0-98.0); Mean Platelet Volume 8.8 fL (9.4-12.3); Monocytes Absolute Auto 0.9 X10*3/uL (0.1-1.2); Monocytes Percent Auto 8.2 % (2-11); Neutrophils Absolute Auto 5.8 x10*3/uL (2.0-8.3); Neutrophils Percent Auto 53.8 % (45-73); Platelet Count 312 X10*3/uL (160-400); Red Blood Count 4.84 X10*6/uL (4.20-5.50); Red Cell Distribution Width 13.3 % (11.0-16.0); White Blood Count 10.8 X10*3/uL (4.8-10.8)
[2023-05-30 00:50] LABS: Alanine Aminotransferase 21 U/L (0-31); Albumin Level 4.4 g/dL (3.5-5.0); Alkaline Phosphatase 65 U/L (39-117); Anion Gap 13 (12-20); Aspartate Amino Transferase 17 U/L (5-31); Bilirubin Total 0.6 mg/dL (0.0-1.0); Blood Urea Nitrogen 10 mg/dL (9-16); Calcium 9.7 mg/dL (8.4-10.2); Carbon Dioxide 24 mmol/L (22-29); Chloride 105 mmol/L (96-108); Creatinine Clr Calc Pharmacy 108.7; Estimated Glomerular Filt Rate > 60; Glucose Random 109 mg/dL (60-115); Potassium 3.9 mmol/L (3.3-5.1); Sodium 138 mmol/L (135-145); Total Protein 7.5 g/dL (6.5-8.0)
[2023-05-30 01:19] LABS: HCG Quantitative 11912 mIU/mL
--- NOTE | 2023-05-30 02:56 | ED_ITS ---
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 No other complaints no fevers, diarrhea. MD Complaint: other (spotting) Onset (ago): day(s) (3) Pain Consistency: intermittent Location: pelvis Severity: mild Quality: Cramping Radiation: pelvis Relieving factors: none Exacerbating factors: none Associated symptoms: nausea Vaginal bleeding: light Patient : Yes Related Data Home Medications Medication Instructions Recorded Confirmed cholecalciferol (vitamin D3) 325 325 mcg PO QWEEK 12/16/22 05/01/23 mcg (13,000 unit) capsule Previous Rx's Medication Instructions Recorded amitriptyline 10 mg tablet 10 mg PO BEDTIME 90 days #90 tabs 12/16/22 jxwntbugzx-rlulnfgnhfwrj-bozbjoms 1 tab PO Q6H PRN migraines 30 days 12/16/22 50 mg-325 mg-40 mg tablet #10 tabs alprazolam 0.25 mg tablet (Xanax) 0.25 mg PO BEDTIME PRN anxiety 30 02/17/23 days #10 tabs omeprazole 40 mg capsule,delayed 40 mg PO BID 14 days #28 caps 03/27/23 release Ventolin HFA 90 mcg/actuation 1 puff inhalation QID 30 days #18 04/21/23 aerosol inhaler (albuterol sulfate) grams atorvastatin 20 mg tablet 20 mg PO BEDTIME 90 days #90 tabs 04/21/23 clotrimazole-betamethasone 1 1 appl topical BID 2 weeks #15 04/21/23 %-0.05 % topical cream grams cyanocobalamin (vitamin B-12) 250 250 mcg PO DAILY 90 days #90 tabs 05/01/23 mcg tablet thiamine HCl (vitamin B1) 100 mg 100 mg PO DAILY 90 days #90 tabs 05/01/23 tablet Allergies Allergy/AdvReac Type Severity Reaction Status Date / Time No Known Allergies Allergy Verified 05/29/23 15:02 Review of Systems 2 Review of Systems: Constitutional : No Fever, No Chills ENT/Mouth : No sore throat, No Rhinorrhea Eyes: No Eye Pain, No Redness Cardiovascular : No Chest Pain, No SOB Respiratory : No Cough, No Sputum, No Wheezing Gastrointestinal : positive Nausea, No Vomiting, No Diarrhea, positive abdominal pain, Genitourinary : positive irregular bleeding, No Dysuria, No Urinary Frequency, positive pelvic pain Musculoskeletal : No Myalgias Skin : No rash Neuro : No Weakness, No Headache Psych : No Anxiety/Panic, No Depression Heme/Lymph: No bruising, No Lymphadenopathy Endocrine : No Polyuria, No Polydipsia All other systems reviewed and are negative [facility] Past Medical History Attestation statement: The following information was validated with the patient. Source: old records reviewed Medical History Hyperlipidemia LDL goal <70 Mild asthma Surgical History History of colonoscopy History of wisdom tooth extraction Family History Family History Mother Diabetes Asthma Hypertension Father Diabetes Maternal Grandfather Colon cancer Maternal Aunt Colon cancer Social History Social History Housing: Apartment Alcohol intake: never Patient Tobacco Use Status: Never used Tobacco e-Cigarette/Vaping Use: Currently Using (sometimes) Second Hand Smoke Exposure: No Advance Directives: No Advance Directives Information Provided: No Patient : Yes service: No Current occupational status: unemployed Cognitive needs: No Hearing needs: No Vision needs: Yes Physical Exam 2 Vital Signs: Vital Signs: Last Vital Signs Temp 97.8 F 05/30/23 03:41 Pulse 69 05/30/23 03:41 Resp 16 05/30/23 03:41 BP 118/69 05/30/23 03:41 Pulse Ox 98 05/30/23 03:41 O2 Del Method Room Air 05/30/23 03:41 BMI result Body Mass Index 37.8 Appearance: Alert. Oriented X3. No acute distress. Eyes: Pupils equal, round and reactive to light. ENT: Pharynx normal. Neck: Normal inspection. Neck supple. CVS: Normal heart rate and rhythm. Pulses normal. Respiratory: No respiratory distress. Breath sounds normal. Abdomen: Soft and nontender. Skin: Skin warm and dry. Normal skin color. Normal skin turgor. Extremities: No lower extremity edema. No calf ttp Neuro: Oriented X 3. No motor deficit. No sensory deficit. Course Course Course Narrative: went over instructions with diabetologist Medical Decision Making Medical Decision Making [facility] Narrative: 27 yo female G1 LMP 04/09 here with mild intermittent cramping and spotting did recently have intercourse the patient is not toxic abdomen is benign at this time labs, Rh is + will obtain US and UA to assess for UTI vs threatened . Not toxic appearing. Differential Diagnosis Differential Diagnoses: The differential diagnosis associated with the presentation includes threatened , UTI Admission/Observation Consideration of admission/observation: Escalation of care including admission/observation considered no bleeding here stable for DC Lab Data [facility] Lab Attestation statement: I reviewed the patient's lab results. 05/30/23 00:23 05/30/23 00:23 Labs: Lab Results 05/30/23 05/30/23 Range/Units 00:22 00:23 WBC 10.8 (4.8-10.8) X10*3/uL RBC 4.84 (4.20-5.50) X10*6/uL Hgb 14.4 (12.0-16.0) g/dl Hct 42.2 (37.0-47.0) % MCV 87.2 (80.0-98.0) fL MCH 29.8 (27.0-33.0) pg MCHC 34.1 (31.0-35.0) g/dl RDW 13.3 (11.0-16.0) % Plt Count 312 (160-400) X10*3/uL MPV 8.8 L (9.4-12.3) fL Immature Gran % (Auto) 0.3 (0.0-0.4) % Neut % (Auto) 53.8 (45-73) % Lymph % (Auto) 34.4 (20-40) % Price % (Auto) 8.2 (2-11) % Eos % (Auto) 2.9 (0-4) % Baso % (Auto) 0.4 (0-2) % Lymph # (Auto) 3.7 (1.2-4.9) X10*3/uL Price # (Auto) 0.9 (0.1-1.2) X10*3/uL Eos # (Auto) 0.3 (0.0-0.4) X10*3/uL Baso # (Auto) 0.0 (0.0-0.2) X10*3/uL Abs Immat Gran (auto) 0.03 (0.00-0.03) X10*3/uL Absolute Neuts (auto) 5.8 (2.0-8.3) x10*3/uL Absolute Nucleated RBC 0.000 (0.0-0.012) X10*3/uL Nucleated RBC % (auto) 0.0 (0.0-0.2) /100WBC Sodium 138 (135-145) mmol/L Potassium 3.9 (3.3-5.1) mmol/L Chloride 105 (96-108) mmol/L Carbon Dioxide 24 (22-29) mmol/L Anion Gap 13 (12-20) BUN 10 (9-16) mg/dL Creatinine 0.79 (0.5-1.4) mg/dL Estim Creat Clear Calc 108.7 Estimated GFR > 60 Random Glucose 109 (60-115) mg/dL Calcium 9.7 (8.4-10.2) mg/dL Total Bilirubin 0.6 (0.0-1.0) mg/dL AST 17 (5-31) U/L ALT 21 (0-31) U/L Alkaline Phosphatase 65 (39-117) U/L Total Protein 7.5 (6.5-8.0) g/dL Albumin 4.4 (3.5-5.0) g/dL Beta HCG, Quant 39008 mIU/mL Blood Type A Positive Independent Interpretation I performed an independent interpretation of an: Ultrasound (+ IUP) Radiology Impression Discussion of test interpretation with radiology: I have reviewed the radiologist's reading. Independent Historian Clinical information obtained from an independent historian. History obtained from or confirmed by: Spouse Discharge Plan Discharge Clinical Impression: Pelvic pain, , threatened Patient Disposition: Home, Self-Care Instructions: Pelvic Pain (ED), Threatened Miscarriage (ED), Subchorionic Hemorrhage (ED) Additional Instructions: follow up with OBGYN this week please repeat hormone test in 3 days return for worsening bleeding pain or any other concerns US/US OB pelvic and transvaginal IMPRESSION: 1. Single intrauterine gestation with ultrasound gestational age of 6 weeks and 5 days +/- 4 days. 2. Estimated date of delivery is 01/18/2024 +/- 4 days. 3. No maternal adnexal mass or pelvic ascites. 4. Small subchorionic hemorrhage Prescriptions: No Action alprazolam [Xanax] 0.25 mg tablet 0.25 mg PO BEDTIME PRN (Reason: anxiety) 30 Days Qty: 10 0RF omeprazole 40 mg capsule,delayed release(DR/EC) 40 mg PO BID 14 Days Qty: 28 0RF albuterol sulfate [Ventolin HFA] 90 mcg/actuation HFA aerosol inhaler 1 puff inhalation QID 30 Days Qty: 18 2RF clotrimazole-betamethasone 1-0.05 % cream 1 appl topical BID 14 Days Qty: 15 1RF cholecalciferol (vitamin D3) 325 mcg (13,000 unit) capsule 325 mcg PO QWEEK jcvjurxqmm-bugevzwbnuinx-xhjd 50-325-40 mg tablet 1 tab PO Q6H PRN (Reason: migraines) 30 Days Qty: 10 0RF amitriptyline 10 mg tablet 10 mg PO BEDTIME 90 Days Qty: 90 1RF atorvastatin 20 mg tablet 20 mg PO BEDTIME 90 Days Qty: 90 0RF cyanocobalamin (vitamin B-12) 250 mcg tablet 250 mcg PO DAILY 90 Days Qty: 90 1RF thiamine HCl (vitamin B1) 100 mg tablet 100 mg PO DAILY 90 Days Qty: 90 1RF Print Language: Luxembourger
[2023-05-30 03:41] VITALS: BP 118/69; PULSE 69; RESP 16; TEMP 36.6; O2SAT 98
[2023-05-30 05:55] VITALS: BP 118/69; PULSE 69; RESP 18; TEMP 36.6; O2SAT 98
== END 2023-05-30 05:57 | disposition home or self-care (01) ==
PROVIDERS: Emergency Provider Emergency Medicine; PCP Internal Medicine
DX: O20.0 Threatened abortion (principal); Z3A.01 Less than 8 weeks gestation of pregnancy; O26.851 Spotting complicating pregnancy, first trimester
CPT/HCPCS: 36415; 76801; 76817; 80053; 84702; 85025; 86900; 86901; 99283; 99284

== ENCOUNTER 2023-06-01 13:40 | Emergency (ER) | payer OTHER, SELFPAY ==
--- NOTE | ~2023-06-01 | US_ITS ---
EXAMINATION: US OBSTETRICAL ULTRASOUND CLINICAL INFORMATION: Vaginal bleeding. . COMPARISON: None available. LMP: 04/09/2023. Gestational age by maternal dates is 01/14/2024. Estimated date of delivery by maternal dates is 7 weeks 4 days. TECHNIQUE: Multiple sonographic transabdominal views the pelvis obtained FINDINGS: There is a single intrauterine gestational sac with visible yolk sac, embryo/fetus, and cardiac activity. There is no significant subchorionic hemorrhage or hematoma. HR: 133 beats per minute. CRL (crown rump length): 0.70 cm (6 weeks 5 days +/- 4 days). CYRIL (estimated date of delivery): +/- 4 days. MATERNAL ADNEXA: The right maternal ovary is not appreciated The left maternal ovary measures 2.6 x 2.2 x 1.7 cm. Incidental 1.3 cm corpus luteum cyst There is no significant maternal adnexal mass. No maternal pelvic ascites. US/US OB pelvic and transvaginal IMPRESSION: 1. Single intrauterine gestation with ultrasound gestational age of 6 weeks 5 days +/- 4 days. 2. Estimated date of delivery is 01/20/2024 +/- 4 days. 3. No maternal adnexal mass or pelvic ascites.
[2023-06-01 15:15] VITALS: BP 137/78; PULSE 83; RESP 18; TEMP 36.4; O2SAT 99; BMI 37.8
--- NOTE | 2023-06-01 15:15 | ED.GENADULT ---
HPI - General Adult General Chief complaint: Vaginal Bleeding Stated complaint: vaginal bleeding Time Seen by Provider: 06/01/23 14:26 Source: patient Mode of arrival: ambulatory Limitations: no limitations History of Present Illness HPI narrative: Patient is a 27 year old assigned female at with a history of first trimester presenting to the emergency department today with nausea and vaginal spotting. Patient states that she was seen here 3 days ago and told that she was and she is concerned about losing the baby since she is spotting. Patient denies any dizziness, lightheadedness, fever, chills, blurry vision, double vision, loss of vision, chest pain, difficulty breathing, shortness of breath, back pain, night sweats, pain with urination, increased urinary frequency, increased urinary urgency, blood in her urine or stool, syncope or a near syncopal episode, recent trauma or falls, bowel incontinence, bladder incontinence, bowel retention, bladder retention, or any other complaints at this time. Severity: mild Relieving factors: none Exacerbating factors: none Associated symptoms: nausea/vomiting Treatments prior to arrival: none Related Data Home Medications Medication Instructions Recorded Confirmed cholecalciferol (vitamin D3) 325 325 mcg PO QWEEK 12/16/22 05/01/23 mcg (13,000 unit) capsule Previous Rx's Medication Instructions Recorded amitriptyline 10 mg tablet 10 mg PO BEDTIME 90 days #90 tabs 12/16/22 mpaelzqnsv-zswsasjacrecr-puykcnbw 1 tab PO Q6H PRN migraines 30 days 12/16/22 50 mg-325 mg-40 mg tablet #10 tabs alprazolam 0.25 mg tablet (Xanax) 0.25 mg PO BEDTIME PRN anxiety 30 02/17/23 days #10 tabs omeprazole 40 mg capsule,delayed 40 mg PO BID 14 days #28 caps 03/27/23 release Ventolin HFA 90 mcg/actuation 1 puff inhalation QID 30 days #18 04/21/23 aerosol inhaler (albuterol sulfate) grams atorvastatin 20 mg tablet 20 mg PO BEDTIME 90 days #90 tabs 04/21/23 clotrimazole-betamethasone 1 1 appl topical BID 2 weeks #15 04/21/23 %-0.05 % topical cream grams cyanocobalamin (vitamin B-12) 250 250 mcg PO DAILY 90 days #90 tabs 05/01/23 mcg tablet thiamine HCl (vitamin B1) 100 mg 100 mg PO DAILY 90 days #90 tabs 05/01/23 tablet doxylamine 10 mg-pyridoxine (vit 1 tab PO DAILY #7 tabs 06/01/23 B6) 10 mg tablet,delayed release Allergies Allergy/AdvReac Type Severity Reaction Status Date / Time No Known Allergies Allergy Verified 06/01/23 15:14 Review of Systems Constitutional: Constitutional: Reports no additional constitutional complaints, Denies chills, Denies fever(s) and Denies night sweats Eyes: Eyes: Reports no additional eye complaints, Denies blurry vision, Denies change in vision, Denies diplopia, Denies eye discharge, Denies loss of vision and Denies eye pain ENT: Denies dizziness Cardiovascular: Cardiovascular: Reports no additional cardiovascular complaints, Denies chest pain, Denies lightheadedness, Denies Loss of Consciousness and Denies dyspnea Respiratory: Respiratory: Reports no additional respiratory complaints and Denies dyspnea Gastrointestinal: Gastrointestinal: Reports no additional gastrointestinal complaints, Reports abdominal pain, Denies melena, Denies hematochezia, Denies change in bowel habits, Denies change in stool character, Reports nausea and Reports vomiting Genitourinary: Genitourinary: Denies hematuria, Denies urinary frequency, Denies dysuria, Denies urinary incontinence, Denies urinary hesitancy and Denies urinary urgency Comments: vaginal spotting Musculoskeletal: Musculoskeletal: Reports no additional musculoskeletal complaints, Denies numbness and Denies tingling Neurologic: Denies dizziness, Denies loss of vision, Denies numbness and Denies tingling Psychiatric: Psychiatric: Reports no additional psychiatric complaints Endocrine: Endocrine: Reports no additional endocrine complaints Hematologic/Lymphatic: Hematologic/Lymphatic: Reports no additional hematologic/lymphatic complaints Allergic/Immunologic: Allergic/Immunologic: Reports no additional allergic/immunologic complaints PMFSH Past Medical History Attestation statement: The following information was validated with the patient. Source: old records reviewed and nursing notes reviewed Medical History Hyperlipidemia LDL goal <70 Mild asthma Surgical History History of colonoscopy History of wisdom tooth extraction Family History Family History Mother Diabetes Asthma Hypertension Father Diabetes Maternal Grandfather Colon cancer Maternal Aunt Colon cancer Social History Social History Housing: Apartment Alcohol intake: never Patient Tobacco Use Status: Never used Tobacco e-Cigarette/Vaping Use: Currently Using (sometimes) Second Hand Smoke Exposure: No Advance Directives: No Advance Directives Information Provided: No service: No Current occupational status: unemployed Cognitive needs: No Hearing needs: No Vision needs: Yes Physical Exam ED Vital Signs: Vital Signs - 24 hr 06/01/23 15:15 06/01/23 18:54 06/01/23 20:22 Temperature 97.5 F 98.3 F 98.0 F Pulse Rate 83 82 92 Respiratory Rate 18 20 16 Blood Pressure 137/78 126/81 142/80 H Pulse Oximetry 99 97 99 Oxygen Delivery Method Room Air Room Air Room Air 06/01/23 20:26 Temperature 98.0 F Pulse Rate 92 Respiratory Rate 18 Blood Pressure 142/80 H Pulse Oximetry 97 Oxygen Delivery Method Room Air BMI result Body Mass Index 37.8 Const General: cooperative, no acute distress, alert and awake Nutritional Appearance: well nourished Orientation/consciousness: patient oriented x3 Limitations: no limitations HENMT Head: Yes normal to inspection and Yes atraumatic Ears: hearing grossly normal bilaterally and external ears normal General nose exam: Normal external nose present, no nasal discharge noted and no epistaxis Face and sinus: Yes normal facial exam, No abrasion and No laceration Mouth: Normal oral and palatal mucosa present, no drooling and no muffled voice Eyes General: appearance normal, both eyes and all related structures Periorbital: periorbital findings normal Eyelids: Yes eyelids normal Conjunctivae: conjunctivae normal Pupils: Equal, round and reactive pupils present EOM: EOMs intact bilaterally Neck Neck: Yes normal visual inspection, Yes full ROM and Yes no lymphadenopathy Chest Chest palpation & inspection: normal inspection of the chest Resp Effort & Inspection: normal respiratory effort and able to speak in complete sentences GI Inspection: Yes normal to inspection Neuro General: patient oriented x3 and moves all extremities Cranial nerves: Yes Equal, round and reactive pupils present Cognition (Neuro): normal cognition Motor exam (neuro): 5/5 motor strength present throughout Sensory Exam: Normal double simultaneous stimulation for sensation Coordination: [id number] test normal Extrem General: Yes normal to inspection, Yes full ROM and Yes capillary refill normal Psych Appearance: grossly normal Mental Status: mental status grossly normal Affect: normal affect Attitude: cooperative Thought process: Normal thought process present Thought content: Normal thought content present Insight: Good insight present (Psych) Course Course Course Narrative: RME performed by Onelia Lentz PA-C. Patient is a 27 year old assigned female at presenting to the emergency department with increased vaginal bleeding. . Detailed physical exam and review of systems are deferred to the crochet beader. Labs, imaging, and swabs ordered. Patient placed back in the waiting room pending room availability and results. Medical Decision Making Medical Decision Making [facility] Narrative: Patient is a 27 year old assigned female at with a history of first trimester presenting to the emergency department today with vaginal spotting, abdominal pain, and nausea. Patient's physical exam was unremarkable. Patient's blood work was appropriate for 1st trimester . Patient's transvaginal US showed an appropriate first trimester . I explained my physical exam findings as well as all test results to the patient. I answered all questions asked by the patient. Patient declined a pelvic exam and stated she would like something prescribed for nausea and be sent home . I stressed the importance of the patient taking her medication as prescribed. I stressed the importance of the patient following up with her primary care provider and her OBGYN. I stressed the importance of the patient returning to the emergency department immediately if her symptoms were to worsen or if she were to develop any dizziness, shortness of breath, difficulty breathing, chest pain, blurry vision, loss of vision, nausea, vomiting, abdominal pain, fever, chills, back pain, or any other complaints. Patient verbalized agreement and understanding with this treatment plan and discharge. Differential Diagnosis Differential Diagnoses: The differential diagnosis associated with the presentation includes Nausea Abdominal pain Normal first trimester Admission/Observation Consideration of admission/observation: Escalation of care including admission/observation considered Patient would have been admitted to the hospital had her work up had any findings where hospital admission was appropriate and her clinical presentation warranted hospital admission. Lab Data [facility] Lab Attestation statement: I reviewed the patient's lab results. My interpretation of these results are in the [facility] Rationale portion of this note. 06/01/23 15:48 06/01/23 15:48 Labs: Lab Results 03/18/24 Range/Units 15:48 WBC 8.3 (4.8-10.8) X10*3/uL RBC 4.87 (4.20-5.50) X10*6/uL Hgb 14.6 (12.0-16.0) g/dl Hct 42.3 (37.0-47.0) % MCV 86.9 (80.0-98.0) fL MCH 30.0 (27.0-33.0) pg MCHC 34.5 (31.0-35.0) g/dl RDW 13.4 (11.0-16.0) % Plt Count 305 (160-400) X10*3/uL MPV 9.0 L (9.4-12.3) fL Immature Gran % (Auto) 0.2 (0.0-0.4) % Neut % (Auto) 61.1 (45-73) % Lymph % (Auto) 28.5 (20-40) % [place] % (Auto) 7.6 (2-11) % Eos % (Auto) 2.1 (0-4) % Baso % (Auto) 0.5 (0-2) % Lymph # (Auto) 2.4 (1.2-4.9) X10*3/uL [place] # (Auto) 0.6 (0.1-1.2) X10*3/uL Eos # (Auto) 0.2 (0.0-0.4) X10*3/uL Baso # (Auto) 0.0 (0.0-0.2) X10*3/uL Abs Immat Gran (auto) 0.02 (0.00-0.03) X10*3/uL Absolute Neuts (auto) 5.1 (2.0-8.3) x10*3/uL Absolute Nucleated RBC 0.000 (0.0-0.012) X10*3/uL Nucleated RBC % (auto) 0.0 (0.0-0.2) /100WBC Sodium 138 (135-145) mmol/L Potassium 3.5 (3.3-5.1) mmol/L Chloride 109 H (96-108) mmol/L Carbon Dioxide 20 L (22-29) mmol/L Anion Gap 13 (12-20) BUN 5 L (9-16) mg/dL Creatinine 0.66 (0.5-1.4) mg/dL Estim Creat Clear Calc 130.1 Estimated GFR > 60 Random Glucose 135 H (60-115) mg/dL Calcium 9.3 (8.4-10.2) mg/dL Magnesium 2.0 (1.6-2.6) mg/dL Total Bilirubin 0.5 (0.0-1.0) mg/dL AST 14 (5-31) U/L ALT 21 (0-31) U/L Alkaline Phosphatase 64 (39-117) U/L Total Protein 7.2 (6.5-8.0) g/dL Albumin 4.2 (3.5-5.0) g/dL Beta HCG, Quant 90670 mIU/mL Independent Interpretation I performed an independent interpretation of an: Ultrasound Interpretation: My interpretation is in agreement with the radiologist's impression of this imaging study. EXAMINATION: US OBSTETRICAL ULTRASOUND CLINICAL INFORMATION: Vaginal bleeding. . COMPARISON: None available. LMP: 04/09/2023. Gestational age by maternal dates is 01/14/2024. Estimated date of delivery by maternal dates is 7 weeks 4 days. TECHNIQUE: Multiple sonographic transabdominal views the pelvis obtained FINDINGS: There is a single intrauterine gestational sac with visible yolk sac, embryo/fetus, and cardiac activity. There is no significant subchorionic hemorrhage or hematoma. HR: 133 beats per minute. CRL (crown rump length): 0.70 cm (6 weeks 5 days +/- 4 days). CYIRL (estimated date of delivery): +/- 4 days. MATERNAL ADNEXA: The right maternal ovary is not appreciated The left maternal ovary measures 2.6 x 2.2 x 1.7 cm. Incidental 1.3 cm corpus luteum cyst There is no significant maternal adnexal mass. No maternal pelvic ascites. US/US OB pelvic and transvaginal IMPRESSION: 1. Single intrauterine gestation with ultrasound gestational age of 6 weeks 5 days +/- 4 days. 2. Estimated date of delivery is 01/20/2024 +/- 4 days. 3. No maternal adnexal mass or pelvic ascites. Dictated By: Robbi Cadena MD Signed By: Electronically signed by Robbi Cadena MD 06/01/23 1810 Radiology Impression Discussion of test interpretation with radiology: I have reviewed the radiologist's reading. Prescription Management I considered prescription management with: Other (patient prescribed safe anti-emetic) Discharge Plan Discharge Clinical Impression: , Nausea Patient Disposition: Home, Self-Care Instructions: (ED), Acute Nausea and Vomiting (ED) Additional Instructions: Follow up with your primary care provider and your OBGYN. Return to the emergency department immediately if your symptoms worsen or if you develop any dizziness, shortness of breath, difficulty breathing, chest pain, blurry vision, loss of vision, nausea, vomiting, abdominal pain, fever, chills, back pain, or any other complaints. Prescriptions: New doxylamine-pyridoxine (vit B6) 10-10 mg tablet,delayed release (DR/EC) 1 tab PO DAILY Qty: 7 0RF No Action alprazolam [Xanax] 0.25 mg tablet 0.25 mg PO BEDTIME PRN (Reason: anxiety) 30 Days Qty: 10 0RF omeprazole 40 mg capsule,delayed release(DR/EC) 40 mg PO BID 14 Days Qty: 28 0RF albuterol sulfate [Ventolin HFA] 90 mcg/actuation HFA aerosol inhaler 1 puff inhalation QID 30 Days Qty: 18 2RF clotrimazole-betamethasone 1-0.05 % cream 1 appl topical BID 14 Days Qty: 15 1RF cholecalciferol (vitamin D3) 325 mcg (13,000 unit) capsule 325 mcg PO QWEEK oevnagibbf-nvxomylccrzmg-ukdp 50-325-40 mg tablet 1 tab PO Q6H PRN (Reason: migraines) 30 Days Qty: 10 0RF amitriptyline 10 mg tablet 10 mg PO BEDTIME 90 Days Qty: 90 1RF atorvastatin 20 mg tablet 20 mg PO BEDTIME 90 Days Qty: 90 0RF cyanocobalamin (vitamin B-12) 250 mcg tablet 250 mcg PO DAILY 90 Days Qty: 90 1RF thiamine HCl (vitamin B1) 100 mg tablet 100 mg PO DAILY 90 Days Qty: 90 1RF Referrals: Haydee Sanchez MD [Primary Care Provider] - Isaias Goodman MD [Physician] - (Follow up with an OBGYN. ) Stand Alone Forms: Work/School Release Interventions: ED Discharge Assessment Last Done: 06/01/23 20:26 Discharge Date/Time: 06/01/23 20:28 Print Language: Vietnamese
[2023-06-01 15:56] LABS: MANUAL DIFF FLAG NO
[2023-06-01 15:57] LABS: Basophils Percent Auto 0.5 % (0-2); Eosinophils Absolute Auto 0.2 X10*3/uL (0.0-0.4); Eosinophils Percent Auto 2.1 % (0-4); Hematocrit 42.3 % (37.0-47.0); Hemoglobin 14.6 g/dl (12.0-16.0); Imm Gran Abs Auto 0.02 X10*3/uL (0.00-0.03); Imm Gran Pct Auto 0.2 % (0.0-0.4); Lymphocytes Absolute Auto 2.4 X10*3/uL (1.2-4.9); Lymphocytes Percent Auto 28.5 % (20-40); Mean Corpuscular HGB Conc 34.5 g/dl (31.0-35.0); Mean Corpuscular Volume 86.9 fL (80.0-98.0); Monocytes Absolute Auto 0.6 X10*3/uL (0.1-1.2); Monocytes Percent Auto 7.6 % (2-11); Neutrophils Absolute Auto 5.1 x10*3/uL (2.0-8.3); Neutrophils Percent Auto 61.1 % (45-73); Platelet Count 305 X10*3/uL (160-400); Red Blood Count 4.87 X10*6/uL (4.20-5.50); Red Cell Distribution Width 13.4 % (11.0-16.0); White Blood Count 8.3 X10*3/uL (4.8-10.8)
[2023-06-01 16:23] LABS: Alanine Aminotransferase 21 U/L (0-31); Albumin Level 4.2 g/dL (3.5-5.0); Alkaline Phosphatase 64 U/L (39-117); Anion Gap 13 (12-20); Aspartate Amino Transferase 14 U/L (5-31); Bilirubin Total 0.5 mg/dL (0.0-1.0); Blood Urea Nitrogen 5 mg/dL (9-16); Calcium 9.3 mg/dL (8.4-10.2); Carbon Dioxide 20 mmol/L (22-29); Chloride 109 mmol/L (96-108); Creatinine Clr Calc Pharmacy 130.1; Estimated Glomerular Filt Rate > 60; Glucose Random 135 mg/dL (60-115); Potassium 3.5 mmol/L (3.3-5.1); Sodium 138 mmol/L (135-145); Total Protein 7.2 g/dL (6.5-8.0)
[2023-06-01 16:44] LABS: HCG Quantitative 23858 mIU/mL
[2023-06-01 18:54] VITALS: BP 126/81; PULSE 82; RESP 20; TEMP 36.8; O2SAT 97
[2023-06-01 20:22] VITALS: BP 142/80; PULSE 92; RESP 16; TEMP 36.7; O2SAT 99
[2023-06-01 20:26] VITALS: BP 142/80; PULSE 92; RESP 18; TEMP 36.7; O2SAT 97
== END 2023-06-01 20:28 | disposition home or self-care (01) ==
PROVIDERS: Physician Assistant Medical; Emergency Provider Internal Medicine; PCP Internal Medicine
DX: O26.891 Other specified pregnancy related conditions, first trimester (principal); R11.0 Nausea; Z3A.01 Less than 8 weeks gestation of pregnancy
CPT/HCPCS: 36415; 76801; 76817; 80053; 83735; 84702; 85025; 99282; 99283

== ENCOUNTER → 2023-06-22 09:46 | Outpatient (REF) | payer OTHER, SELFPAY | LOC: HO.SL 09:46 | PROVIDERS: PCP Internal Medicine; Visit Provider Internal Medicine | DX: R40.0 Somnolence (principal); R06.83 Snoring | CPT/HCPCS: 95806 ==

== ENCOUNTER → 2023-06-22 10:06 | Outpatient (BNV) | payer OTHER, SELFPAY | PROVIDERS: PCP Internal Medicine; Visit Provider Internal Medicine | DX: R06.83 Snoring (principal); R40.0 Somnolence | CPT/HCPCS: 95806 ==

== ENCOUNTER 2023-08-21 11:11 | Outpatient (REF) | payer OTHER, SELFPAY ==
[2023-08-21 13:29] LABS: Alanine Aminotransferase 14 U/L (0-31); Albumin Level 3.6 g/dL (3.5-5.0); Alkaline Phosphatase 51 U/L (39-117); Anion Gap 11 (12-20); Aspartate Amino Transferase 12 U/L (5-31); Bilirubin Total 0.3 mg/dL (0.0-1.0); Blood Urea Nitrogen 3 mg/dL (9-16); Calcium 9.7 mg/dL (8.4-10.2); Carbon Dioxide 24 mmol/L (22-29); Chloride 106 mmol/L (96-108); Cholesterol 221 mg/dL (<200); Estimated Glomerular Filt Rate > 60; Glucose Fasting 106 mg/dL (60-99); HDL Cholesterol 59 mg/dL (>40); LDL Cholesterol Calculated 138 mg/dL (<100); Sodium 137 mmol/L (135-145); Total Protein 6.8 g/dL (6.5-8.0); Triglycerides 120 mg/dL (<150)
[2023-08-21 13:38] LABS: Vitamin D 25-OH Total 54.3 ng/mL (>30)
[2023-08-21 13:42] LABS: Creatinine Urine 64.29 mg/dL; Microalbumin Urine < 5.0 mg/L
[2023-08-21 13:51] LABS: Folate 13.4 ng/mL (> or = 4.0); Vitamin B12 394 pg/mL (200-900)
== END 2023-08-21 11:12 | disposition home or self-care (01) ==
LOC: HO.HHCL 11:11
PROVIDERS: Visit Provider Internal Medicine
DX: Z00.00 Encounter for general adult medical examination without abnormal findings (principal); E53.8 Deficiency of other specified B group vitamins; E55.9 Vitamin D deficiency, unspecified; E78.5 Hyperlipidemia, unspecified; E11.9 Type 2 diabetes mellitus without complications
CPT/HCPCS: 36415; 80053; 80061; 82306; 82570; 82607; 82746

== ENCOUNTER 2023-08-27 13:25 | Outpatient (AMB) | payer OTHER, SELFPAY ==
[2023-08-27 13:28] VITALS: BP 122/76; BMI 38.4
--- NOTE | 2023-08-27 13:28 | A.OFFPC_ITS ---
Vital Signs 08/27/23 13:28 Height 5 ft 1 in Weight 203 lb BMI 38.4 BP 122/76 Blood Pressure Location Lt brachial Position Sitting Intake Visit Reasons: dm Intake Note: Patient here for a follow up DM Recyclable Products Sorter Required: No Accompanied by: Significant Other Allergies No Known Allergies Allergy (Verified 08/27/23 13:48) Medication List - Last Reconciled 08/27/23 by Haydee Davalos MD aspirin (Adult Low Dose Aspirin) 81 mg PO BID cholecalciferol (vitamin D3) 325 mcg PO QWEEK clotrimazole-betamethasone 1-0.05 % 1 appl topical BID 2 weeks cyanocobalamin (vitamin B-12) 250 mcg PO DAILY 90 days metformin 500 mg PO BID omeprazole 40 mg PO BID 14 days thiamine HCl (vitamin B1) 100 mg PO DAILY 90 days Ventolin HFA 90 mcg/actuation (albuterol sulfate) 1 puff inhalation QID 30 days NS Tobacco use date assessed: 04/21/23 Dental Screening Dental Screen Date: 04/21/23 HPI HPI Comments History of Present Illness Details This is a 27-year-old female with diabetes mellitus type 2, GERD, hyperlipidemia, low vitamin-D and mild major depression that comes accompanied by significant other for follow-up on her conditions. A1c within goal. She is 20 weeks and is not taking amitriptyline and statins due to this matter. Takes PPIs occasionally for GERD. On vitamin-D supplements for her low vitamin-D. Mild major depression currently in remission. Dietary changes were advised. Complain of a scratchy throat that happens occasionally and this has been present for over a year. Had upper GI series last year due to this matter which was normal. [facility] Medical History (Updated 08/27/23 @ 15:27 by Haydee Davalos MD) Hyperlipidemia LDL goal <70 Morbid obesity Mild asthma Surgical History History of colonoscopy History of wisdom tooth extraction Family History Mother Diabetes Asthma Hypertension Father Diabetes Maternal Grandfather Colon cancer Maternal Aunt Colon cancer Social History Housing: Apartment Alcohol intake: never Patient Tobacco Use Status: Never used Tobacco e-Cigarette/Vaping Use: Currently Using (sometimes) Second Hand Smoke Exposure: No service: No Current occupational status: unemployed Cognitive needs: No Hearing needs: No Vision needs: Yes Questionnaire Thrive Questionnaire Date Thrive assessed: 04/21/23 COCO-7 AMB Questionnaire COCO-7 Date COCO - 7 assessed: 04/21/23 Source: Developed by Drs. Hamzah Iyer, Kemi Carver, Micky Lemons and colleagues, with an educational nolvia from [employer]. Review of Systems Const All systems reviewed & are unremarkable except as noted in HPI and below Card Denies chest pain at rest, Denies chest pain with activity, Denies edema, Denies irregular heart rhythm, Denies claudication, Denies dyspnea, Denies dyspnea on exertion, Denies orthopnea, Denies paroxysmal nocturnal dyspnea and Denies slow heart rate Resp Denies cough, Denies dyspnea and Denies dyspnea on exertion Neuro Denies behavioral changes and Denies lack of coordination Psych Denies behavioral changes Physical exam (Primary Care) Vital Signs: Last Vital Signs BP 122/76 08/27/23 13:28 BMI result Body Mass Index 38.4 Tobacco/Smoking Status: Tobacco use Status Tobacco use date assessed 04/21/23 08/27/23 13:32 Patient Tobacco Use Status Never used Tobacco 08/27/23 13:32 e-Cigarette/Vaping Use Currently Using (sometimes) 08/27/23 13:32 Thrive Assessment: Date of Thrive Assessment Date Thrive assessed 04/21/23 08/27/23 13:32 Resp Effort & Inspection: normal respiratory effort Auscultation: clear to auscultation bilaterally Cardio Jugular venous distension: no JVD Rate: regular rate Rhythm: regular rhythm Heart sounds: S1 normal heart sound present and S2 normal heart sound present Extrem General: Yes full ROM Results AMB Hemoglobin A1c AMB Hemoglobin A1c 6.0 % Last Edit by STANLEY Smalls on 08/27/23 14:0 1 Results Reviewed Results Reviewed: Laboratory Last Values Hgb A1c (Clinic) 6.0 % (4.0-6.0) 08/27/23 13:54 Assessment and Plan Assessment & Plan (1) Diabetes mellitus: Code(s): E11.9 - Type 2 diabetes mellitus without complications Qualifiers: Diabetes mellitus type: type 2 Diabetes mellitus long lines operator insulin use: without long lines operator use Diabetes mellitus complication status: without complication Qualified Code(s): E11.9 - Type 2 diabetes mellitus without complications Plan: Continue metformin. A1c goal is equal or less than 7%. (2) Mild major depression: Code(s): F32.0 - Major depressive disorder, single episode, mild Plan: In remission. (3) Hypovitaminosis D: Code(s): E55.9 - Vitamin D deficiency, unspecified Plan: Continue vitamin-D supplements. (4) GERD (gastroesophageal reflux disease): Comment: PPI, improved with dietary modification -following with weight management Code(s): K21.9 - Gastro-esophageal reflux disease without esophagitis Qualifiers: Esophagitis presence: esophagitis presence not specified Qualified Code(s): K21.9 - Gastro-esophageal reflux disease without esophagitis Plan: Continue PPIs. (5) Hyperlipidemia LDL goal <70: Code(s): E78.5 - Hyperlipidemia, unspecified Plan: Hold statins due to . LDL goal is less than 70. Start low-cholesterol diet. Orders: Orders AMB Hemoglobin A1c Today E11.9 - Type 2 diabetes mellitus without complications Comprehensive Radiant. Panel Fast 4 Months E11.9 - Type 2 diabetes mellitus without complications Coding Level of Care Code Est Pt Level 4 (03546) Complex EM visit Add On G2211 Diagnoses Type 2 diabetes mellitus without complication, without long-term current use of insulin E11.9 Diabetes mellitus type: type 2 Diabetes mellitus care home insulin use: without care home use Diabetes mellitus complication status: without complication Mild major depression F32.0 Hypovitaminosis D E55.9 Gastroesophageal reflux disease, unspecified whether esophagitis present K21.9 Esophagitis presence: esophagitis presence not specified Hyperlipidemia LDL goal <70 E78.5 Time Spent (min) 23
== END 2023-08-27 14:02 | disposition home or self-care (01) ==
PROVIDERS: PCP Internal Medicine; Visit Provider Internal Medicine
DX: E11.9 Type 2 diabetes mellitus without complications (principal); F32.0 Major depressive disorder, single episode, mild; E55.9 Vitamin D deficiency, unspecified; K21.9 Gastro-esophageal reflux disease without esophagitis; E78.5 Hyperlipidemia, unspecified
CPT/HCPCS: 83036; 99214; G2211

== ENCOUNTER 2024-03-21 08:12 | Outpatient (REF) | payer OTHER, SELFPAY ==
--- NOTE | ~2024-03-21 | XR_ITS ---
EXAMINATION: XR HAND 3 OR MORE VIEWS LEFT HISTORY: M79.642 - Pain in left hand COMPARISON: There are no prior studies available for comparison. FINDINGS: Three views of the left hand are submitted. Osseous mineralization is normal. There is no fracture or dislocation. The joint spaces are preserved. The soft tissues are unremarkable. XR/XR hand LT min 3V IMPRESSION: Unremarkable examination of the left hand. Electronically signed by: Hamzah Hernandez MD 03/23/2024 01:16 PM MARY JANE
--- NOTE | ~2024-03-21 | XR_ITS ---
EXAMINATION: XR HAND 3 OR MORE VIEWS RIGHT HISTORY: M79.641 - Pain in right hand COMPARISON: There are no prior studies available for comparison. FINDINGS: Three views of the right hand are submitted. Osseous mineralization is normal. There is no fracture or dislocation. The joint spaces are preserved. The soft tissues are unremarkable. XR/XR hand RT min 3V IMPRESSION: Unremarkable examination of the right hand. Electronically signed by: Hamzah Hernandez MD 03/23/2024 01:16 PM MARY JANE
[2024-03-21 13:02] LABS: Alanine Aminotransferase 17 U/L (0-31); Alkaline Phosphatase 60 U/L (39-117); Anion Gap 12 (12-20); Aspartate Amino Transferase 20 U/L (5-31); Bilirubin Total 0.4 mg/dL (0.0-1.0); Blood Urea Nitrogen 9 mg/dL (9-16); Calcium 8.8 mg/dL (8.4-10.2); Carbon Dioxide 27 mmol/L (22-29); Chloride 105 mmol/L (96-108); Estimated Glomerular Filt Rate > 60; Glucose Fasting 126 mg/dL (60-99); Potassium 3.9 mmol/L (3.3-5.1); Sodium 140 mmol/L (135-145); Total Protein 7.2 g/dL (6.5-8.0)
== END 2024-03-21 08:13 | disposition home or self-care (01) ==
LOC: HO.HOSX 08:12
PROVIDERS: PCP Internal Medicine; Referring Provider Internal Medicine
DX: M79.641 Pain in right hand (principal); M79.642 Pain in left hand; M65.4 Radial styloid tenosynovitis [de Quervain]; M25.641 Stiffness of right hand, not elsewhere classified; M25.642 Stiffness of left hand, not elsewhere classified
CPT/HCPCS: 20550; 36415; 73130; 80053; 99202; J1100; J2003

== ENCOUNTER 2024-03-21 09:51 | Outpatient (AMB) | payer OTHER, SELFPAY ==
--- NOTE | 2024-03-21 09:56 | A.OFFVIS_ITS ---
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 She expresses she is unable to hold her child due to pain in her bilateral hands. She states she has cold and hot sensations in her 1st, 2nd, and 3rd digits of her bilateral digits that radiates into the middle of her forearm. She reports difficulty with lifting, squeezing, gripping and grasping. She expresses her partner helps her with things like opening and closing bottles, she has to use two hands to pour a bottle of milk and her partner even helps her bathe at times. She presents today with braces however she says these do not offer relief, she uses them more as a precaution to watch out for her hands. 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 Patient states that this pain started while she was with her child, but since childbirth it has been exacerbated significantly. Patient reports that this pain is primarily located at the base of her bilateral thumbs, and radiates into both the hand and the forearm of bilateral upper extremities. The patient reports that this pain is extremely severe, and worsens with lifting, particularly when lifting her child or the gallon of water that she needs to use to make formula. Patient states that this pain makes it very difficult for her to complete her activities of daily living, even requiring help with things such as bathing from her partner. Patient states she has been wearing a Velcro wrist splints on her bilateral wrists, with minimal relief. Patient denies any numbness or tingling in the bilateral upper extremities. No other acute complaints or concerns at this time. [facility] Medical History (Updated 03/21/24 @ 11:13 by MARY Flores) Hyperlipidemia LDL goal <70 Morbid obesity Mild asthma Surgical History History of colonoscopy History of wisdom tooth extraction Family History Mother Diabetes Asthma Hypertension Father Diabetes Maternal Grandfather Colon cancer Maternal Aunt Colon cancer Social History Housing: Apartment Alcohol intake: never Patient Tobacco Use Status: Never used Tobacco e-Cigarette/Vaping Use: Currently Using (sometimes) Second Hand Smoke Exposure: No service: No Current occupational status: unemployed Cognitive needs: No Hearing needs: No Vision needs: Yes Review of Systems Const All systems reviewed & are unremarkable except as noted in HPI and below Physical Exam Vital Signs: BMI result Body Mass Index 41.6 Extrem Other: Patient is alert, oriented, and in no acute distress. Neuro: Normal sensation of the tips of all digits of the bilateral hand at this time Vascular: Cap refill brisk Pain: Significant tenderness to palpation of bilateral radial styloids No tenderness to palpation of bilateral ulnar styloid, DRUJ, or elsewhere in the bilateral hands and wrists Positive Edvin bilaterally ROM: Patient is able to make a closed fist with both hands with encouragement Skin: No lacerations or abrasions. General: No ecchymosis, erythema, or evidence of infection. Psych: Appears grossly normal Affect normal Attitude cooperative Office Procedures AMB Tendon Injection Tendon Injection Details: Right de Quervain injection [id number] Tendon Sheath Injection All charges added?: Procedure code (CPT) selection complete Results Reviewed Results Reviewed: X-rays obtained in the office today and independently reviewed by me, Carlos Vargas PA-C, demonstrate no fracture or acute bony abnormality of bilateral hands. Assessment & Plan Assessment & Plan (1) De Quervain's tenosynovitis, bilateral: Code(s): M65.4 - Radial styloid tenosynovitis [de Quervain] Category: Medical (2) Stiffness of joints of both hands: Code(s): M25.641 - Stiffness of right hand, not elsewhere classified; M25.642 - Stiffness of left hand, not elsewhere classified Category: Medical Plan 1. De Quervain tenosynovitis, bilateral Patient is educated about this condition Patient is educated about the treatment options available Patient would like to proceed with steroid injection into the right wrist at this time Injection #1: The risks and benefits of a steroid injection including but not limited to risk of damage to blood vessels, nerves, tendons, infection, skin bleaching, failure to improve symptoms, increased pain, and possible need for further injections or other intervention were discussed with the patient and the patient wishes to proceed with the steroid injection. Once consent was obtained, I sterilely prepped the area over the 1st dorsal compartment of the right thumb. I then injected the 1st dorsal compartment with a combination of 1 mL of dexamethasone (4mg/ml), and 1% lidocaine. The patient tolerated the procedure well with no complications and good resolution of their symptoms prior to leaving clinic. If the patient continues to have pain 6-8 weeks following this injection, they may call to schedule appointment to discuss alternative treatment options Patient would like to see if right de Quervain injection is effective prior to scheduling any appointment to have the left side injected We will follow-up in 4-6 weeks for this Patient is also referred to occupational therapy for range of motion and strengthening of the bilateral hands, she appears to have gotten slightly stiff due to not using her hands as much as she has been previously Orders: Orders XR hand RT min 3V Today M79.641 - Pain in right hand OT Evaluation and Treatment Today M25.641 - Stiffness of right hand, not elsewhere classified, M25.642 - Stiffness of left hand, not elsewhere classified, M65.4 - Radial styloid tenosynovitis [de Quervain] XR hand LT min 3V Today M79.642 - Pain in left hand Coding Level of Care Code New Pt Level 3 (72188) Diagnoses De Quervain's tenosynovitis, bilateral M65.4 Stiffness of joints of both hands M25.641; M25.642 CPT Codes Tendon Injection - Tendon Injection 1: [id number] Tendon Sheath Injection ([id number])
[2024-03-21 10:20] VITALS: BMI 41.6
== END 2024-03-21 11:12 | disposition home or self-care (01) ==
PROVIDERS: PCP Internal Medicine
DX: M65.4 Radial styloid tenosynovitis [de Quervain] (principal); M25.641 Stiffness of right hand, not elsewhere classified; M25.642 Stiffness of left hand, not elsewhere classified
CPT/HCPCS: 20550; 99203

== ENCOUNTER 2024-03-29 08:13 | Outpatient (AMB) | payer OTHER, SELFPAY ==
--- NOTE | 2024-03-29 08:16 | A.OFFPC_ITS ---
Vital Signs 03/29/24 08:19 Height 5 ft 1 in Weight 224 lb BMI 42.3 BP 122/86 Blood Pressure Location Lt brachial Position Sitting Intake Visit Reasons: DM Intake Note: Patient here for a follow up DM Preschool Assistant Director Required: Yes Preschool Assistant Director Language: E Learning Developer Name: Haydee Davalos MD Information Interpreted: non-clinical & clinical Accompanied by: Self / Same As Patient Allergies No Known Allergies Allergy (Verified 03/29/24 08:30) Medication List - Last Reconciled 03/29/24 by Haydee Davalos MD blood sugar diagnostic (FreeStyle Lite Strips) Use 1 test strip once a day blood-glucose meter (FreeStyle Lite Meter kit) As directed [id number]-zvzssympuq-lcg-cod [id number] mg 1 cap PO Q4H PRN cholecalciferol (vitamin D3) 325 mcg PO QWEEK clotrimazole-betamethasone 1-0.05 % 1 appl topical BID 2 weeks cyanocobalamin (vitamin B-12) 500 mcg PO DAILY lancets (FreeStyle Lancets) As directed metformin 500 mg PO BID 90 days omeprazole 40 mg PO BID 14 days thiamine HCl (vitamin B1) 100 mg PO DAILY 90 days Ventolin HFA 90 mcg/actuation (albuterol sulfate) 1 puff inhalation QID 30 days NS Tobacco use date assessed: 03/29/24 Dental Screening Dental Screen Date: 03/29/24 Did you have a dental visit in the last 12 months?: Yes Did you have a dental problem in the last 6 months where you did not have access to dental care?: No Was dental information given to patient?: Patient has dentist HPI HPI Comments History of Present Illness Details The patient is a 28-year-old female presenting with type 2 diabetes mellitus. She reports that her blood glucose levels have increased since receiving a steroid injection. Her glucose levels were previously around 126 mg/dL, but they have recently escalated to 230 mg/dL. The patient has a history of preeclampsia during , necessitating early delivery and multiple hospital visits due to migraines and high blood pressure. She was prescribed Metformin 500 mg twice daily. Her A1c was last measured at 6% today. For her hypertension, the patient monitors her blood pressure consistently. She reports a last reading of 160/?? mmHg, but it was within normal limits during today's visit. The patient describes current challenges with obesity, having a BMI of 42.3 with plans for bariatric surgery which were interrupted due to her recent . She presents with pain in her hands that she describes as worsening after lifting her baby. The pain started and is attributed to De Quervain's tenosynovitis. The patient has been scheduled for therapy starting Thursday. She claims difficulty performing tasks due to the pain. Previously, she experienced vitamin D deficiency, for which supplementation was advised weekly. Her previous vitamin D and B12 levels were normal. She indicates a history of hyperlipidemia for which Atorvastatin was prescribed but discontinued during , her LDL cholesterol previously measured at 130 mg/dL. She has mild major depression and declines treatment for now. [facility] Medical History (Updated 03/29/24 @ 12:15 by Haydee Davalos MD) Severe obesity (BMI 35.0-39.9) with comorbidity Hyperlipidemia LDL goal <70 Morbid obesity Mild asthma Surgical History History of History of colonoscopy History of wisdom tooth extraction Family History Mother Diabetes Asthma Hypertension Father Diabetes Maternal Grandfather Colon cancer Maternal Aunt Colon cancer Social History Housing: Apartment Alcohol intake: never Patient Tobacco Use Status: Never used Tobacco e-Cigarette/Vaping Use: Currently Using (sometimes) Second Hand Smoke Exposure: No service: No Current occupational status: unemployed Cognitive needs: No Hearing needs: No Vision needs: Yes Questionnaire PHQ-9 Over the last 2 weeks, how often have you been bothered by any of the following problems? 1. Little interest or pleasure in doing things: several days 2. Feeling down, depressed, or hopeless: several days 3. Trouble falling or staying asleep, or sleeping too much: nearly every day 4. Feeling tired or having little energy: several days 5. Poor appetite or overeating: several days 6. Feeling bad about yourself - or that you are a failure or have let yourself or your family down: several days 7. Trouble concentrating on things, such as reading the newspaper or watching television: not at all 8. Moving or speaking so slowly that other people could have noticed. Or the opposite - being so fidgety or restless that you have been moving around a lot more than usual: several days 9. Thoughts that you would be better off or of hurting yourself in some way: not at all Total score: 9 Depression Screening Interpretation: Positive Depression Screening Follow-up: Existing condition and Follow-up Visit Requested Depression Screening Done: Yes 09604 - PHQ-9 Billing: Yes Source: Developed by Drs. Hamzah Iyer, Kemi Carver, Micky Lemons and colleagues, with an educational nolvia from [employer]. Thrive Questionnaire Date Thrive assessed: 03/29/24 I am a: Patient What is your living situation today?: I have a steady place to live Within the past 12 months, did the food you bought not last and you didn't have the money to get more?: Never true Within the past 12 months, did you worry whether your food would run out before you got money to buy more?: Never true Do you have trouble paying for medicines?: No Do you have trouble getting transportation to medical appointments?: No Do you have trouble paying your heating and electricity bill?: No Do you have trouble taking care of your child, family member or friend?: No Do you have trouble with day-to-day activities such as bathing, preparing meals, shopping, managing finances, etc.?: No Are you currently unemployed and looking for a job?: No Are you interested in more education?: No Please select the resources that you would like help with: None Currently or been in a relationship where the following occur: No concerns reported THRIVE Score: 0 AUDIT C Alcohol Use Questionnaire (AUDIT-C) 1. How often do you have a drink containing alcohol?: Never Total Score: 0 Score Reviewed/Action Taken: No COCO-7 AMB Questionnaire COCO-7 Date COCO - 7 assessed: 03/29/24 Feeling nervous, anxious, or on edge: 1 = Several days Not being able to stop or control worryin = Not at all Worrying too much about different things: 1 = Several days Trouble relaxin = Several days Being so restless that it is hard to sit still: 0 = Not at all Becoming easily annoyed or irritable: 1 = Several days Feeling afraid as if something awful might happen: 0 = Not at all Total COCO-7 score (0-4 normal; 5-9 mild; 10-14 moderate; 15-21 severe): 4 Source: Developed by Drs. Hamzah Iyer, Kemi Carver, Micky Lemons and colleagues, with an educational nolvia from [employer] COCO-7 Assessment Billing COCO-7 Assessment Tool: COCO-7 Assessment 09127 Review of Systems Const Details: - Musculoskeletal: Reports hand pain with inability to hold heavy objects. - Neurological: Denies stroke symptoms, reports intermittent headaches. Physical exam (Primary Care) Vital Signs: Last Vital Signs BP 122/86 03/29/24 08:19 BMI result Body Mass Index 42.3 BMI Assessment/Plan discussion: High BMI High, discussed plan: lifestyle, weight reduction, dietary and physical activity Tobacco/Smoking Status: Tobacco use Status Tobacco use date assessed 03/29/24 03/29/24 08:26 Patient Tobacco Use Status Never used Tobacco 03/29/24 08:19 e-Cigarette/Vaping Use Currently Using (sometimes) 03/29/24 08:19 PHQ-9: PHQ-9 Score PHQ-9: Total score 9 03/29/24 08:33 Depression Screening Interpretation: Positive Depression Screening Follow-up: E xisting condition and Follow-up Visit Requested Thrive Assessment: Date of Thrive Assessment Date Thrive assessed 03/29/24 03/29/24 08:26 Currently or been in a relationship where the following occur: No concerns reported Const Other: General: No confusion Respiratory: Normal respiratory effort, clear to auscultation bilaterally Cardiovascular: No jugular venous distension, regular rate, regular rhythm, S1 normal heart sound present and S2 normal heart sound present GI: Normal to inspection, Soft to palpation and nontender, normal bowel sounds Skin: No rashes or lesions noted Neurology: Patient oriented x3, no focal motor deficits and No confusion Extremities: Full ROM, but patient reports difficulty with hand movements and pain, possibly related to De Quervain's tenosynovitis Psychology: Grossly normal, but patient reports feeling overwhelmed and mentions depression due to difficulty managing with a baby and hand pain. Office Procedures Flu Questionnaire Does the patient have a severe egg allergy?: No Results AMB Hemoglobin A1c AMB Hemoglobin A1c 6.0 % Last Edit by STANLEY Smalls on 03/29/24 08:2 6 Immunizations Fluarix Triv [id number] (PF) 45 mcg (15 mcg x 3)/0.5 mL IM syringe Performing Provider: Haydee Davalos MD [facility] Documented (not given) by: STANLEY Smalls on 03/29/24 08:26 Reason Not Given: Patient Refused Results Reviewed Results Reviewed: Laboratory Last Values Hgb A1c (Clinic) 6.0 % (4.0-6.0) 03/29/24 08:16 Coding Level of Care Code Est Pt Level 4 (40258) Complex EM visit Add On G2211 Diagnoses Type 2 diabetes mellitus without complication, without long-term current use of insulin E11.9 Diabetes mellitus type: type 2 Diabetes mellitus senior care insulin use: without senior care use Diabetes mellitus complication status: without complication Mild major depression F32.0 Hyperlipidemia LDL goal <70 E78.5 De Quervain's tenosynovitis, bilateral M65.4 Essential hypertension I10 Morbid obesity with BMI of 40.0-44.9, adult E66.01; Z68.41 Additional Codes COCO-7 Assessment Billing - COCO-7 Assessment Tool: COCO-7 Assessment 44784 ([id number]) PHQ-9 - 05360 - PHQ-9 Billing: Yes ([id number]) Time Spent (min) 25 Assessment & Plan Assessment & Plan (1) Diabetes mellitus: Code(s): E11.9 - Type 2 diabetes mellitus without complications Category: Medical Qualifiers: Diabetes mellitus type: type 2 Diabetes mellitus terminal superintendent insulin use: without senior care use Diabetes mellitus complication status: without compl ication Qualified Code(s): E11.9 - Type 2 diabetes mellitus without complications (2) Mild major depression: Code(s): F32.0 - Major depressive disorder, single episode, mild Category: Medical (3) Hyperlipidemia LDL goal <70: Code(s): E78.5 - Hyperlipidemia, unspecified Category: Medical (4) De Quervain's tenosynovitis, bilateral: Code(s): M65.4 - Radial styloid tenosynovitis [de Quervain] Category: Medical (5) Essential hypertension: Code(s): I10 - Essential (primary) hypertension Category: Medical (6) Morbid obesity with BMI of 40.0-44.9, adult: Code(s): E66.01 - Morbid (severe) obesity due to excess calories; Z68.41 - Body mass index [BMI] 40.0-44.9, adult Category: Medical Plan - Monitor blood glucose levels closely and adjust Metformin as needed. - Resume low-dose Lisinopril for blood pressure management post-clearance. - Initiate therapy for De Quervain's tenosynovitis. - Resume Atorvastatin for hyperlipidemia management; monitor LDL levels. - Decrease dosage of weekly Vitamin D due to normalization in levels. - Schedule follow-up labs to reevaluate glycemic control, lipid levels, and bloo d pressure. Patient was informed and verbally consented to the use of an ambient scribe for clinic note documentation during this visit. I carefully explained the management strategy for the patient's type 2 diabetes and the potential impact of recent steroid usage on glucose levels. We explored the re-initiation of Lisinopril for hypertension post-, emphasizing the importance of sustained blood pressure control. Vitamin D levels have normalized, allowing for a reduction in dosage. I discussed restarting Atorvastatin in light of previous LDL levels. The challenges with De Quervain's tenosynovitis were addressed, and the timing and necessity of initiating physical therapy were discussed. We also addressed hand pain and its management. The follow-up plan involves a series of lab tests in four months to assess control of her diabetes and lipid panels. I encouraged the patient to remain diligent with her therapy and medication regimens. Orders: Orders Influenza [id number] Immunization Today Z23 - Encounter for immunization AMB Hemoglobin A1c Today E11.9 - Type 2 diabetes mellitus without complications Vitamin B12 and Folate 4 Months E53.8 - Deficiency of other specified B group vitamins Microalbumin, Random (w Creat) 4 Months R80.9 - Proteinuria, unspecified Comprehensive [place]. Panel Fast 4 Months E11.9 - Type 2 diabetes mellitus without complications Vitamin D 25-OH Total 4 Months E55.9 - Vitamin D deficiency, unspecified Lipid Panel 4 Months E78.5 - Hyperlipidemia, unspecified Referrals Ophthalmology Referral H53.8 - Other visual disturbances Medications: New cholecalciferol (vitamin D3) 25 mcg PO DAILY 90 caps 1RF 90 days atorvastatin 10 mg PO BEDTIME 90 tabs 1RF 90 days [id number]-dfklodoqwa-xwf-cod [id number] mg 1 cap PO Q4H PRN 14 caps 0RF headaches 30 days lisinopril 2.5 mg PO DAILY 90 tabs 1RF 90 days Patient Instructions: - Continue to monitor blood glucose levels daily. - Restart Lisinopril and Atorvastatin as directed. - Schedule and attend physical therapy sessions for hand pain. - Follow the weekly Vitamin D dosing as adjusted. - Return for follow-up labs in four months.
[2024-03-29 08:19] VITALS: BP 122/86; BMI 42.3
== END 2024-03-29 08:49 | disposition home or self-care (01) ==
PROVIDERS: PCP Internal Medicine; Visit Provider Internal Medicine
DX: E11.9 Type 2 diabetes mellitus without complications (principal); F32.0 Major depressive disorder, single episode, mild; E66.01 Morbid (severe) obesity due to excess calories; Z68.41 Body mass index [BMI] 40.0-44.9, adult; E78.5 Hyperlipidemia, unspecified; M65.4 Radial styloid tenosynovitis [de Quervain]; I10 Essential (primary) hypertension

== ENCOUNTER → 2024-03-29 08:13 | Outpatient (BNVA) | payer OTHER, SELFPAY | PROVIDERS: PCP Internal Medicine; Visit Provider Internal Medicine | DX: E11.9 Type 2 diabetes mellitus without complications (principal); E55.9 Vitamin D deficiency, unspecified; E78.5 Hyperlipidemia, unspecified; F32.0 Major depressive disorder, single episode, mild; M65.4 Radial styloid tenosynovitis [de Quervain]; I10 Essential (primary) hypertension; E66.01 Morbid (severe) obesity due to excess calories; E53.8 Deficiency of other specified B group vitamins; R80.9 Proteinuria, unspecified; H53.8 Other visual disturbances; Z68.41 Body mass index [BMI] 40.0-44.9, adult; Z28.21 Immunization not carried out because of patient refusal | CPT/HCPCS: 83036; 96127; 99212 ==

== ENCOUNTER 2024-04-25 09:58 | Outpatient (AMB) | payer OTHER, SELFPAY ==
[2024-04-25 10:02] VITALS: BMI 42.3
--- NOTE | 2024-04-25 10:02 | MHC.OFFVIS ---
Vital Signs 04/25/24 10:02 Height 5 ft 1 in Weight 224 lb BMI 42.3 Intake Visit Reasons: OV - Bilateral De Quervains - Rt Inj 03/21/24 Intake Note: Ines is a 28 year old left hand dominant female who presents today for a follow up of her bilateral De Quervains. As per last note the right thumb was injected on 03/21/2024. Patient explains that it was her left hand that was injected and injection did not help. Today she states she is also having pain in her right hand. She explains she made a bad move while holding her baby and felt intense pain. Allergies No Known Allergies Allergy (Verified 04/25/24 10:18) HPI HPI OV - Bilateral De Quervains - Rt Inj 03/21/24: Details: Ines is a 28 year old left hand dominant female who presents today for a follow up of her bilateral De Quervains. As per last note the right thumb was injected on 03/21/2024. Patient explains that it was her left hand that was injected and injection did not help. Today she states she is also having pain in her right hand. She explains she made a bad move involving lifting a heavy container full of milk while holding her baby and felt intense pain. Continues to deny or tingling upper extremities. No other Acute complaints or concerns. [facility] Medical History (Updated 04/25/24 @ 10:26 by MARY Flores) Severe obesity (BMI 35.0-39.9) with comorbidity Hyperlipidemia LDL goal <70 Morbid obesity Mild asthma Surgical History History of History of colonoscopy History of wisdom tooth extraction Family History Mother Diabetes Asthma Hypertension Father Diabetes Maternal Grandfather Colon cancer Maternal Aunt Colon cancer Social History Housing: Apartment Alcohol intake: never Patient Tobacco Use Status: Never used Tobacco e-Cigarette/Vaping Use: Currently Using (sometimes) Second Hand Smoke Exposure: No service: No Current occupational status: unemployed Cognitive needs: No Hearing needs: No Vision needs: Yes Review of Systems Const All systems reviewed & are unremarkable except as noted in HPI and below Physical Exam Vital Signs: BMI result Body Mass Index 42.3 Extrem Other: Patient is alert, oriented, and in no acute distress. Neuro: Normal sensation of the tips of all digits of the bilateral hand at this time Vascular: Cap refill brisk Pain: Significant tenderness to palpation of bilateral radial styloids Tenderness to palpation of the 1st and 2nd dorsal compartments of the left wrist No tenderness to palpation of bilateral ulnar styloid, DRUJ, or elsewhere in the bilateral hands and wrists Positive Edvin bilaterally ROM: Patient is able to make a closed fist with both hands with encouragement Skin: No lacerations or abrasions. General: No ecchymosis, erythema, or evidence of infection. Psych: Appears grossly normal Affect normal Attitude cooperative Assessment & Plan Assessment & Plan (1) De Quervain's tenosynovitis, bilateral: Code(s): M65.4 - Radial styloid tenosynovitis [de Quervain] Category: Medical (2) Intersection syndrome of wrist: Code(s): M65.839 - Other synovitis and tenosynovitis, unspecified forearm Category: Medical Plan 1. Intersection syndrome of left wrist 2. De Quervain tenosynovitis, bilateral Patient is educated about these conditions Patient is educated about the treatment options available At this time, patient states she would like to hold off on any operative intervention for her de Quervain tenosynovitis, as she does not feel she will be able to recover adequately due to her having a small child Patient also states she would like to hold off on any repeat injection at this time Patient was re-referred to occupational therapy Patient was also provided with a Velcro wrist splint to be worn in the left side when she has significant pain in the dorsal left wrist Patient was amenable to this plan Patient will follow-up as needed with any acute concerns Orders: Orders OT Evaluation and Treatment Today M65.4 - Radial styloid tenosynovitis [de Quervain], M65.839 - Other synovitis and tenosynovitis, unspecified forearm Coding Level of Care Code Est Pt Level 3 (43687) Diagnoses De Quervain's tenosynovitis, bilateral M65.4 Intersection syndrome of wrist M65.839
== END 2024-04-25 10:39 | disposition home or self-care (01) ==
PROVIDERS: PCP Internal Medicine
DX: M65.4 Radial styloid tenosynovitis [de Quervain] (principal); M65.839 Other synovitis and tenosynovitis, unspecified forearm
CPT/HCPCS: 99213

== ENCOUNTER → 2024-04-25 09:58 | Outpatient (BNVA) | payer OTHER, SELFPAY | PROVIDERS: PCP Internal Medicine | DX: M65.4 Radial styloid tenosynovitis [de Quervain] (principal); M65.832 Other synovitis and tenosynovitis, left forearm | CPT/HCPCS: 99212 ==

== ENCOUNTER 2024-07-13 09:57 | Outpatient (RCR) | payer OTHER, SELFPAY ==
--- NOTE | 2024-04-04 12:54 | MHC.OT.OEV ---
[address] [phone] F: [phone] Occupational Therapy Evaluation Patient Name: Ines Mchugh Diagnosis: (B)De Quervains Date of Onset: Date of Surgery: Attending Provider: Carlos Vargas Prescribed Treatment: Follow Up Appointment: History of Current Condition: Patient is a 28 y/o left handed female who is 3 months post partdum referred to skilled OT for pain of (B)thumbs. Patient reports she has pain in both of her thumbs that travels to her forearm that is 10/10 pain during movement. She reports tingling/numbness. 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 Her PLOF (I)ADLs/ IADLs. Currently she has difficulty with tasks such as bathing, taking care of her daughter and making baby bottles. Her works 12 hour shifts ands assists when he is home. She owns [employer] braces and received a cortisone injection (03/21) to the (L) hand. She enjoys painting, watching movies, playing video game, and reading. 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 Living Situation, Family and/or Social Support: Lives with and new born daughter Current Level of Function and Occupation Self Care, Employment, Leisure: mod (A)ADLs/IADLs Sleep: Driving: Vision: Balance: Pain Assessment Pain Score: 10 Pain Scale Used: Numeric (0 - 10) Pain Location and Description: 10/10 (B) thumb/ wrist/ forearm Aggravating Factors: Alleviating Factors: Tylenol Skin and Soft Tissue Assessment Skin and Soft Tissue: Comments: Intact Nerve assessment Ulnar Nerve: Median Nerve: Radial Nerve: Comments: Sensory Assessment Temperature: Light Touch: Proprioception: Vibration: Comments: Edema Assessment Upper Extremity: Lower Extremity: Comments: 16.9cm (R) 18.2cm (L) Dexterity Assessment Dexterity: B/L Impaired Comments: impaired finger oppostion Special Tests Comments: Finkelstine's (+) AROM(PROM) Strength Cervical Cervical Flexion: Cervical Extension: Cervical Lateral Flexion: Cervical Rotation: Comments: Shoulder Flexion: Extension: Abduction: Internal Rotation: External Rotation: Comments: WFL Flexion: Extension: Abduction: Internal Rotation: External Rotation: Comments: WFL Elbow Flexion: Extension: Pronation: Supination: Comments: WFL Flexion: Extension: Pronation: Supination: Comments: WFL Wrist Flexion: (R)20 (L) 5 Extension: (R)28 (L) 43 Ulnar Deviation: (R)9 (L) 10 Radial Deviation: (R)27 (L) 19 Comments: Flexion: Extension: Ulnar Deviation: Radial Deviation: Comments: Thumb Thumb CMC Flexion: Thumb MCP Flexion: Thumb IP Flexion: Radial Abduction: Palmar Abduction: Seneca (Kapandji 0-10): Comments: Digits Index MCP: PIP: DIP: Long MCP: PIP: DIP: Ring MCP: PIP: DIP: Small MCP: PIP: DIP: Comments: Gross Grasp: (R)6 (L)7 Lateral Pinch: (R)1 (L)2 Two-Point Pinch: (R)2 (L)2 Three-Jaw Ronaldo: (R)4 (L)3 Comments: Patient Education Primary Language: Hydraulic Spinner Required: No Current Knowledge: Teaching Method: Education Needs Identified on Evaluation: How did patient/family demonstrate learning? Barriers to Learning: Readiness for Learning: Who was educated? Comments: Plan of Care Assessment: Based on initial evaluation patient presents with pain, impaired strength, impaired ROM, edema and impaired performance during self care tasks. Provocative testing yelled (+) Edvin test. Quick DASH= 90.9 indicating patient's perception on impaired UE performance during self care tasks. Due to the documented impairments it is recommended that patient receive skilled OT intervention in order to achieve her PLOF of (I) during self care tasks. STG Duration: 2 weeks Short Term Goals: Patient will report 8/10 pain in (B) thumbs Patient will be (I) with edema management techniques Patient will increase (B)scrap worker strength by 5lbs. Patient will increase (B)wrist extension by 10* LTG Duration: 4 weeks Public Health Physician Goals: Patient will report 0/10 pain in (B)thumbs Patient will be (I)with HEP Patient will have full (B)wrist ROM in order to look after her daughter Frequency and Duration: The patient will be seen 2x a week for 4 weeks Treatment Plan: Therapeutic Exercise Therapeutic Activity Home Exercise Program Splinting Patient Education Edema Control ADL Training Ultrasound NMES Iontophoresis Paraffin Fluidotherapy MHP Cold Packs Joint Mobilization Soft Tissue Mobilization Kinesiotaping Other (see comments) Skilled OT eval and treat Electronically Signed By: Sara Kulkarni OTR/L, CLT Reviewed/agree with student documentation: Therapist: Please sign and return to therapist, Thank you for your referral.
--- NOTE | 2024-06-02 10:02 | MHC.OT.OP ---
[address] [phone] F: [phone] Occupational Therapy Progress Note Patient Name: Ines Mchugh Diagnosis: (B)De Quervains Date of Surgery: Date of Evaluation: 04/01/24 Treatments to Date: 13 Cancellations to Date: No Shows to Date: Subjective: They really hurt. Pain Score: 7 Pain Location: (B) thumbs, R > L Objective Measures: Quick DASH= 50% Wrist extension AROM= 59* (R); 47* (L) Fisheries Technician strength= 17lbs. (R), 11lbs. (L) Status: Progressing Assessment: Patient was seen for skilled OT progress note. At this time patient is making steady progress towards her goals. Her pain has decreased from a 10/10 to a 7/10, she has increased her (R)faro dealer strength and wrist extension. Her (L) wrist is also slowly increasing in ROM and strength. Her Quick DASH score has decreased by 40% as she achieved a 50%. She is compliant with her her splint wearing schedule. Patient remains motivated to achieve her PLOF. Skilled OT will continue with POC 1-2x a week for 4 weeks in order for patient to achieve care for her daughter (I'ly). Short Term Goals: Patient will report 8/10 pain in (B) thumbs - Goal MET 7/10 Patient will be (I) with edema management techniques Patient will increase (B)faro dealer strength by 5lbs.- 17 (R); 11lbs. Patient will increase (B)wrist extension by 10* 59*(R), 47* Detention Goals: Patient will report 0/10 pain in (B)thumbs -PROGRESSING Patient will be (I)with HEP- PROGRESSING Patient will have full (B)wrist ROM in order to look after her daughter -PROGRESSING Frequency and Duration: The patient will be seen 1-2x a week for 4 weeks Treatment Plan: Therapeutic Exercise Therapeutic Activity Home Exercise Program Splinting Patient Education Desensitization/Sensory Re-ed Edema Control ADL Training Ultrasound NMES Iontophoresis Paraffin Fluidotherapy MHP Cold Packs Joint Mobilization Soft Tissue Mobilization Kinesiotaping Other (see comments) Skilled OT eval and treat Electronically Signed By: Sara Kulkarni, OTR/L, CLT Reviewed/agree with student documentation: N/A Therapist:
--- NOTE | 2024-07-13 10:41 | MHC.OT.DC ---
[address] [phone] F: [phone] Occupational Therapy Discharge Note Patient Name: Ines Mchugh Provider: Carlos Vargas Diagnosis: (B)De Quertong Date of Evaluation: 04/01/24 Date of Discharge: 07/13/24 Treatments to Date: 20 Cancellations to Date: 4 No Shows to Date: 0 Discharge Status: Independent with HEP Recommend MD Follow-up Discharge Summary: MS MCHUGH IS READY TO TRANSITION TO A HOME BASED PROGRAM AT THIS TIME. SHE REPORTS RELIEF FROM USE OF HOME TENS UINT AND HEAT. SHE IS INCONSISTENT WITH USE OF ORTHOSIS WITH HEAVY LIFTING TASKS, YET SUPPORTIVE S/O ABLE TO ASSIST PRN. Pt DEMO GOOD UNDERSTANDING OF HEP. HIGH PAIN REPORTED IN B/L RADIAL WRISTS. RECOMMEND F/U WITH PA Pt NO LONGER MAKING GAINS IN OT. D/C OT SERVICES. Electronically Signed By: SLICK VÁZQUEZ OTR/L Reviewed/agree with student documentation: N/A Therapist: Please Sign and return to therapist, thank you for your referral.
== END 2024-07-13 10:40 | disposition home or self-care (01) ==
LOC: HO.OT 09:57
PROVIDERS: PCP Internal Medicine
DX: M25.641 Stiffness of right hand, not elsewhere classified (principal); M25.642 Stiffness of left hand, not elsewhere classified; M65.4 Radial styloid tenosynovitis [de Quervain]
CPT/HCPCS: 29130; 97035; 97110; 97140; 97165; 97535; 97760

== ENCOUNTER 2024-08-19 10:01 | Outpatient (REF) | payer OTHER, SELFPAY ==
[2024-08-19 11:40] LABS: Folate 12.7 ng/mL (> or = 4.0); Vitamin B12 358 pg/mL (200-900)
[2024-08-19 12:25] LABS: Creatinine Urine 221.53 mg/dL; Microalbum/Creatinine Ratio Ur 123.2 ug/mg cr (<30)
[2024-08-19 12:53] LABS: Alanine Aminotransferase 22 U/L (0-31); Alkaline Phosphatase 49 U/L (39-117); Anion Gap 15 (12-20); Aspartate Amino Transferase 25 U/L (5-31); Bilirubin Total 0.4 mg/dL (0.0-1.0); Blood Urea Nitrogen 7 mg/dL (9-16); Carbon Dioxide 20 mmol/L (22-29); Chloride 108 mmol/L (96-108); Cholesterol 148 mg/dL (<200); Estimated Glomerular Filt Rate > 60; Glucose Fasting 124 mg/dL (60-99); HDL Cholesterol 47 mg/dL (>40); LDL Cholesterol Calculated 72 mg/dL (<100); Potassium 3.9 mmol/L (3.3-5.1); Sodium 139 mmol/L (135-145); Total Protein 6.8 g/dL (6.5-8.0); Triglycerides 146 mg/dL (<150); Vitamin D 25-OH Total 37.9 ng/mL (>30)
== END 2024-08-19 10:02 | disposition home or self-care (01) ==
LOC: HO.LAB 10:01
PROVIDERS: PCP Internal Medicine; Visit Provider Internal Medicine
DX: E11.9 Type 2 diabetes mellitus without complications (principal); R80.9 Proteinuria, unspecified; E78.5 Hyperlipidemia, unspecified; E53.8 Deficiency of other specified B group vitamins; E55.9 Vitamin D deficiency, unspecified
CPT/HCPCS: 36415; 80053; 80061; 82043; 82306; 82570; 82607; 82746

== ENCOUNTER 2024-08-21 11:33 | Emergency (ER) | payer OTHER, SELFPAY ==
--- NOTE | 2024-08-21 11:37 | ED_ITS ---
HPI - General Adult General Chief complaint: General Medical Stated complaint: anxiety Time Seen by Provider: 08/21/24 14:10 Source: patient Mode of arrival: ambulatory Limitations: no limitations History of Present Illness ED Provider: HPI narrative: 28-year-old woman with history of hypertension, type 2 diabetes, presented with significant anxiety about health when receiving results from urinalysis showing that she has not increased microalbumin in the urine spillage. No other symptoms. Related Data Home Medications ?Medication ?Instructions ?Recorded ?Confirmed cyanocobalamin (vitamin B-12) 500 500 mcg PO DAILY 03/29/24 03/29/24 mcg tablet Previous Rx's ?Medication ?Instructions ?Recorded omeprazole 40 mg capsule,delayed 40 mg PO BID 14 days #28 caps 03/27/23 release clotrimazole-betamethasone 1 1 appl topical BID 2 weeks #15 04/21/23 %-0.05 % topical cream grams thiamine HCl (vitamin B1) 100 mg 100 mg PO DAILY 90 days #90 tabs 05/01/23 tablet Ventolin HFA 90 mcg/actuation 1 puff inhalation QID 30 days #18 03/11/24 aerosol inhaler (albuterol sulfate) grams atorvastatin 10 mg tablet 10 mg PO BEDTIME 90 days #90 tabs 03/29/24 butalbital 50 mg-acetaminophen 300 1 cap PO Q4H PRN headaches 30 days 03/29/24 mg-caffeine 40 mg-codeine 30 mg cap #14 caps cholecalciferol (vitamin D3) 25 25 mcg PO DAILY 90 days #90 caps 03/29/24 mcg (1,000 unit) capsule lisinopril 2.5 mg tablet 2.5 mg PO DAILY 90 days #90 tabs 03/29/24 sumatriptan succinate 25 mg tablet 25 mg PO Q2-4H PRN migraine 04/14/24 headache 30 days #9 tabs blood sugar diagnostic (FreeStyle #100 ea 05/09/24 Lite Strips) blood-glucose meter (FreeStyle #1 ea 05/09/24 Lite Meter kit) lancets 28 gauge (FreeStyle #100 ea 05/09/24 Lancets) metformin 850 mg tablet 850 mg PO BID 90 days #180 tabs 06/20/24 Allergies Allergy/AdvReac Type Severity Reaction Status Date / Time No Known Allergies Allergy Verified 08/21/24 11:40 Review of Systems 2 Constitutional: Constitutional: Reports as per HPI [facility] Past Medical History Medical History (Updated 08/21/24 @ 14:48 by Gautam Potter DO) Severe obesity (BMI 35.0-39.9) with comorbidity Hyperlipidemia LDL goal <70 Morbid obesity Mild asthma Surgical History History of History of colonoscopy History of wisdom tooth extraction Family History Family History Mother Diabetes Asthma Hypertension Father Diabetes Maternal Grandfather Colon cancer Maternal Aunt Colon cancer Social History Social History Housing: Apartment Alcohol intake: never Patient Tobacco Use Status: Never used Tobacco e-Cigarette/Vaping Use: Currently Using (sometimes) Second Hand Smoke Exposure: No Advance Directives: No Advance Directives Information Provided: No Do you have a plan to hurt others: No Plan service: No Current occupational status: unemployed Cognitive needs: No Hearing needs: No Vision needs: Yes Physical Exam ED Vital Signs: Vital Signs - 24 hr 08/21/24 11:38 Temperature 98 F Pulse Rate 96 Respiratory Rate 19 Blood Pressure 162/107 H Pulse Oximetry 98 Oxygen Delivery Method Room Air BMI result Body Mass Index 43.1 Const Other: Speaking full sentences, alert and oriented x4 No SI or HI Ambulatory Course Course Course Narrative: This is a Rapid Medical Exam performed in triage by Misty Adam PA-C. Full HPI, ROS and PE to be performed by primary ED provider. 28 yo F w/PMHx DM presenting to the ED c/o increased anxiety surrounding recent lab values. States had labs drawn on 08/19 and noted microalbumin in urine to be elevated & has been very anxious & tearful surrounding that. tried to contact doctor but office closed PE: NAD, nontoxic appearing, ambulating w/steady gait Plan: labs, UA Medical Decision Making Medical Decision Making MDM Narrative: I had a fairly extensive discussion with the patient regarding her dietary changes, medications, her test results, she will follow up with the PCP and have the microalbumin monitored and trended, but at this point she presented with extreme nervousness about the test results and about health and she has no SI or HI and the rest of the blood work is reassuring we will be discharged. Lab Data 08/21/24 12:07 08/21/24 12:07 Labs: Lab Results 08/21/24 Range/Units 12:07 WBC 8.8 (4.8-10.8) X10*3/uL RBC 5.07 (4.20-5.50) X10*6/uL Hgb 15.4 (12.0-16.0) g/dl Hct 45.2 (37.0-47.0) % MCV 89.2 (80.0-98.0) fL MCH 30.4 (27.0-33.0) pg MCHC 34.1 (31.0-35.0) g/dl RDW 12.5 (11.0-16.0) % Plt Count 343 (160-400) X10*3/uL MPV 8.6 L (9.4-12.3) fL Immature Gran % (Auto) 0.2 (0.0-0.4) % Neut % (Auto) 75.3 H (45-73) % Lymph % (Auto) 19.1 L (20-40) % [place] % (Auto) 4.6 (2-11) % Eos % (Auto) 0.6 (0-4) % Baso % (Auto) 0.2 (0-2) % Lymph # (Auto) 1.7 (1.2-4.9) X10*3/uL [place] # (Auto) 0.4 (0.1-1.2) X10*3/uL Eos # (Auto) 0.1 (0.0-0.4) X10*3/uL Baso # (Auto) 0.0 (0.0-0.2) X10*3/uL Abs Immat Gran (auto) 0.02 (0.00-0.03) X10*3/uL Absolute Neuts (auto) 6.6 (2.0-8.3) x10*3/uL Absolute Nucleated RBC 0.000 (0.0-0.012) X10*3/uL Nucleated RBC % (auto) 0.0 (0.0-0.2) /100WBC Sodium 137 (135-145) mmol/L Potassium 3.7 (3.3-5.1) mmol/L Chloride 105 (96-108) mmol/L Carbon Dioxide 22 (22-29) mmol/L Anion Gap 14 (12-20) BUN 8 L (9-16) mg/dL Creatinine 0.68 (0.5-1.4) mg/dL Estim Creat Clear Calc 135.0 Estimated GFR > 60 Random Glucose 179 H (60-115) mg/dL Calcium 9.3 (8.4-10.2) mg/dL Total Bilirubin 0.5 (0.0-1.0) mg/dL Direct Bilirubin 0.2 (0.0-0.5) mg/dL AST 49 H (5-31) U/L ALT 46 H (0-31) U/L Alkaline Phosphatase 57 (39-117) U/L Total Protein 7.5 (6.5-8.0) g/dL Albumin 4.5 (3.5-5.0) g/dL Discharge Plan Discharge Clinical Impression: Anxiety about health, Microalbuminuria Patient Disposition: Home, Self-Care Additional Instructions: Your doctor we will continue to monitor your albumin levels in your urine, as discussed the biggest take from this is for you to continue taking your medications, and we discussed significant dietary changes and lifestyle changes that you are going to follow, with a plan for improve diet, improved exercises/walking, decreasing weight, improvement in your diabetes, resolution of your high blood pressure. Please look up quinoa, amaranth, buckwheat grains. These are all high in protein, good food source, great with vegetables and meat, no juices, no junk food, less than 1.5 g of salt intake a day from all the sources. Your blood work did not reveal any kidney issues, did not reveal any electrolyte abnormalities Prescriptions: No Action omeprazole 40 mg capsule,delayed release(DR/EC) 40 mg PO BID 14 Days Qty: 28 0RF clotrimazole-betamethasone 1-0.05 % cream 1 appl topical BID 14 Days Qty: 15 1RF albuterol sulfate [Ventolin HFA] 90 mcg/actuation HFA aerosol inhaler 1 puff inhalation QID 30 Days Qty: 18 2RF sumatriptan succinate 25 mg tablet 25 mg PO Q2-4H PRN (Reason: migraine headache) 30 Days Qty: 9 3RF Rx Instructions: do not exceed 8 doses per 24 hrs (DME) FreeStyle Lite Strips Strip See Rx Instructions .Route Qty: 100 3RF Rx Instructions: Use 1 test strip once a day (DME) blood-glucose meter [FreeStyle Lite Meter] Kit See Rx Instructions .Route Qty: 1 0RF Rx Instructions: As directed (DME) lancets [FreeStyle Lancets] 28 gauge misc See Rx Instructions .Route Qty: 100 3RF Rx Instructions: As directed metformin 850 mg tablet 850 mg PO BID 90 Days Qty: 180 1RF cyanocobalamin (vitamin B-12) 500 mcg tablet 500 mcg PO DAILY [id number] mg capsule 1 cap PO Q4H PRN (Reason: headaches) 30 Days Qty: 14 0RF cholecalciferol (vitamin D3) 25 mcg (1,000 unit) capsule 25 mcg PO DAILY 90 Days Qty: 90 1RF atorvastatin 10 mg tablet 10 mg PO BEDTIME 90 Days Qty: 90 1RF lisinopril 2.5 mg tablet 2.5 mg PO DAILY 90 Days Qty: 90 1RF thiamine HCl (vitamin B1) 100 mg tablet 100 mg PO DAILY 90 Days Qty: 90 1RF Referrals: Haydee Sanchez MD [Primary Care Provider] - 10 days Print Language: Maldivian
[2024-08-21 11:38] VITALS: BP 162/107; PULSE 96; RESP 19; TEMP 36.6; O2SAT 98; BMI 43.1
[2024-08-21 12:11] LABS: MANUAL DIFF FLAG NO
[2024-08-21 12:13] LABS: Basophils Percent Auto 0.2 % (0-2); Eosinophils Absolute Auto 0.1 X10*3/uL (0.0-0.4); Eosinophils Percent Auto 0.6 % (0-4); Hematocrit 45.2 % (37.0-47.0); Hemoglobin 15.4 g/dl (12.0-16.0); Imm Gran Abs Auto 0.02 X10*3/uL (0.00-0.03); Imm Gran Pct Auto 0.2 % (0.0-0.4); Lymphocytes Absolute Auto 1.7 X10*3/uL (1.2-4.9); Lymphocytes Percent Auto 19.1 % (20-40); Mean Corpuscular HGB Conc 34.1 g/dl (31.0-35.0); Mean Corpuscular Hemoglobin 30.4 pg (27.0-33.0); Mean Corpuscular Volume 89.2 fL (80.0-98.0); Mean Platelet Volume 8.6 fL (9.4-12.3); Monocytes Absolute Auto 0.4 X10*3/uL (0.1-1.2); Monocytes Percent Auto 4.6 % (2-11); Neutrophils Absolute Auto 6.6 x10*3/uL (2.0-8.3); Neutrophils Percent Auto 75.3 % (45-73); Platelet Count 343 X10*3/uL (160-400); Red Blood Count 5.07 X10*6/uL (4.20-5.50); Red Cell Distribution Width 12.5 % (11.0-16.0); White Blood Count 8.8 X10*3/uL (4.8-10.8)
[2024-08-21 12:28] LABS: Alanine Aminotransferase 46 U/L (0-31); Albumin Level 4.5 g/dL (3.5-5.0); Alkaline Phosphatase 57 U/L (39-117); Anion Gap 14 (12-20); Aspartate Amino Transferase 49 U/L (5-31); Bilirubin Direct 0.2 mg/dL (0.0-0.5); Bilirubin Total 0.5 mg/dL (0.0-1.0); Blood Urea Nitrogen 8 mg/dL (9-16); Calcium 9.3 mg/dL (8.4-10.2); Carbon Dioxide 22 mmol/L (22-29); Chloride 105 mmol/L (96-108); Estimated Glomerular Filt Rate > 60; Glucose Random 179 mg/dL (60-115); Potassium 3.7 mmol/L (3.3-5.1); Sodium 137 mmol/L (135-145); Total Protein 7.5 g/dL (6.5-8.0)
[2024-08-21 15:02] VITALS: BP 162/107; PULSE 96; RESP 19; TEMP 36.6; O2SAT 98
== END 2024-08-21 15:02 | disposition home or self-care (01) ==
PROVIDERS: Physician Assistant; Emergency Provider Emergency Medicine; PCP Internal Medicine
DX: F41.9 Anxiety disorder, unspecified (principal); R80.9 Proteinuria, unspecified; E11.9 Type 2 diabetes mellitus without complications; I10 Essential (primary) hypertension; Z79.02 Long term (current) use of antithrombotics/antiplatelets; Z79.899 Other long term (current) drug therapy
CPT/HCPCS: 36415; 80048; 80076; 85025; 99282; 99283

== ENCOUNTER 2024-08-25 09:08 | Outpatient (AMB) | payer OTHER, SELFPAY ==
--- NOTE | 2024-08-25 09:15 | MHC.PC.OV ---
Vital Signs 08/25/24 09:16 Height 5 ft 1 in Weight 221 lb BMI 41.8 BP 138/100 H Blood Pressure Location Lt brachial Position Sitting Intake Visit Reasons: dm Intake Note: Patient here for a follow up DM Project Finance Analyst Required: No Accompanied by: Spouse Allergies No Known Allergies Allergy (Verified 08/25/24 09:32) Medication List - Last Reconciled 08/25/24 by Haydee Davalos MD atorvastatin 10 mg PO BEDTIME 90 days blood sugar diagnostic (FreeStyle Lite Strips) Use 1 test strip once a day blood-glucose meter (FreeStyle Lite Meter kit) As directed ikonkyarue-jxmllrcnlw-kjc-cod [id number] mg 1 cap PO Q4H PRN 30 days cholecalciferol (vitamin D3) 25 mcg PO DAILY 90 days clotrimazole-betamethasone 1-0.05 % 1 appl topical BID 2 weeks cyanocobalamin (vitamin B-12) 500 mcg PO DAILY lancets (FreeStyle Lancets) As directed lisinopril 2.5 mg PO DAILY 90 days metformin 850 mg PO BID 90 days omeprazole 40 mg PO BID 14 days sumatriptan succinate 25 mg PO Q2-4H PRN 30 days thiamine HCl (vitamin B1) 100 mg PO DAILY 90 days Ventolin HFA 90 mcg/actuation (albuterol sulfate) 1 puff inhalation QID 30 days NS Tobacco use date assessed: 03/29/24 Dental Screening Dental Screen Date: 03/29/24 HPI HPI Comments History of Present Illness Details The patient is a 28-year-old female presenting with management of hypertension, diabetes, and proteinuria, along with concerns about anxiety and insomnia. The patient has a history of essential hypertension, which has been slightly elevated but shows improvement compared to previous visits. Her blood pressure management includes the use of lisinopril, which is being adjusted to better control her condition. The patient also has type 2 diabetes mellitus, with a recent HbA1c of 6.7, indicating good control. She monitors her blood glucose levels at home, with recent readings of 151 mg/dL in the morning and 131 mg/dL at night. Proteinuria has been a concern, with a microalbuminuria level of 173, but renal function remains normal with a GFR over 60. The patient is on lisinopril to help manage proteinuria and protect renal function. The patient experiences anxiety, which has been exacerbated by concerns over her proteinuria and other health issues. She reports episodes of insomnia and has been advised to manage her anxiety to improve her sleep quality. The patient is obese, with a recent weight of 235 pounds, and is attempting to lose weight through dietary changes and exercise. She has been referred to weight management and a vegetable trimmer for further support. The patient also suffers from migraines and is on sumatriptan, which is being adjusted to better manage her symptoms. [facility] Medical History (Updated 08/25/24 @ 12:12 by Haydee Davalos MD) Severe obesity (BMI 35.0-39.9) with comorbidity Hyperlipidemia LDL goal <70 Morbid obesity Mild asthma Surgical History History of History of colonoscopy History of wisdom tooth extraction Family History Mother Diabetes Asthma Hypertension Father Diabetes Maternal Grandfather Colon cancer Maternal Aunt Colon cancer Social History Housing: Apartment Alcohol intake: never Patient Tobacco Use Status: Never used Tobacco e-Cigarette/Vaping Use: Currently Using (sometimes) Second Hand Smoke Exposure: No service: No Current occupational status: unemployed Cognitive needs: No Hearing needs: No Vision needs: Yes Questionnaire PHQ-9 Over the last 2 weeks, how often have you been bothered by any of the following problems? 1. Little interest or pleasure in doing things: several days 2. Feeling down, depressed, or hopeless: more than half the days 3. Trouble falling or staying asleep, or sleeping too much: several days 4. Feeling tired or having little energy: several days 5. Poor appetite or overeating: more than half the days 6. Feeling bad about yourself - or that you are a failure or have let yourself or your family down: several days 7. Trouble concentrating on things, such as reading the newspaper or watching television: more than half the days 8. Moving or speaking so slowly that other people could have noticed. Or the opposite - being so fidgety or restless that you have been moving around a lot more than usual: not at all 9. Thoughts that you would be better off or of hurting yourself in some way: not at all Total score: 10 Depression Screening Interpretation: Positive Depression Screening Follow-up: Existing condition and Follow-up Visit Requested Depression Screening Done: Yes Source: Developed by Drs. Hamzah Iyer, Kemi Carver, Micky Lemons and colleagues, with an educational nolvia from [employer]. Thrive Questionnaire Date Thrive assessed: 08/18/24 I am a: Patient What is your living situation today?: I have a steady place to live Within the past 12 months, did the food you bought not last and you didn't have the money to get more?: Never true Within the past 12 months, did you worry whether your food would run out before you got money to buy more?: Never true Do you have trouble paying for medicines?: No Do you have trouble getting transportation to medical appointments?: No Do you have trouble paying your heating and electricity bill?: No Do you have trouble taking care of your child, family member or friend?: I choose not to answer this question Do you have trouble with day-to-day activities such as bathing, preparing meals, shopping, managing finances, etc.?: Yes Are you currently unemployed and looking for a job?: Yes Are you interested in more education?: Yes Please select the resources that you would like help with: Education Currently or been in a relationship where the following occur: No concerns reported THRIVE Score: 0 AUDIT C Alcohol Use Questionnaire (AUDIT-C) 1. How often do you have a drink containing alcohol?: Never Total Score: 0 Score Reviewed/Action Taken: No COCO-7 AMB Questionnaire COCO-7 Date COCO - 7 assessed: 08/25/24 Feeling nervous, anxious, or on edge: 1 = Several days Not being able to stop or control worryin = More than half the days Worrying too much about different things: 0 = Not at all Trouble relaxin = Not at all Being so restless that it is hard to sit still: 0 = Not at all Becoming easily annoyed or irritable: 0 = Not at all Feeling afraid as if something awful might happen: 1 = Several days Total COCO-7 score (0-4 normal; 5-9 mild; 10-14 moderate; 15-21 severe): 4 Source: Developed by Drs. Hamzah Iyer, Kemi Carver, Micky Lemons and colleagues, with an educational nolvia from [employer]. COCO-7 Assessment Billing COCO-7 Assessment Tool: COCO-7 Assessment 54660 Review of Systems Const All systems reviewed & are unremarkable except as noted in HPI and below Card Denies chest pain at rest, Denies chest pain with activity, Denies edema, Denies irregular heart rhythm, Denies claudication, Denies dyspnea, Denies dyspnea on exertion, Denies orthopnea, Denies paroxysmal nocturnal dyspnea and Denies slow heart rate Resp Denies cough, Denies dyspnea and Denies dyspnea on exertion GI Denies abdominal pain, Denies change in bowel habits, Denies excessive flatus, Denies nausea and Denies vomiting Denies urinary incontinence, Denies urinary hesitancy and Denies urinary urgency Psych Reports abnormal sleep pattern, Reports anxiety and Reports depression Physical exam (Primary Care) Vital Signs: Last Vital Signs BP 138/100 H 08/25/24 09:16 BMI result Body Mass Index 41.8 BMI Assessment/Plan discussion: High BMI High, discussed plan: lifestyle, weight reduction, dietary and physical activity Tobacco/Smoking Status: Tobacco use Status Tobacco use date assessed 03/29/24 08/25/24 09:26 Patient Tobacco Use Status Never used Tobacco 08/25/24 09:26 e-Cigarette/Vaping Use Currently Using (sometimes) 08/25/24 09:26 PHQ-9: PHQ-9 Score PHQ-9: Total score 10 08/25/24 09:35 Depression Screening Interpretation: Positive Depression Screening Follow-up: Existing condition and Follow-up Visit Requested Thrive Assessment: Date of Thrive Assessment Date Thrive assessed 08/18/24 08/25/24 09:26 Currently or been in a relationship where the following occur: No concerns reported Resp Effort & Inspection: normal respiratory effort Auscultation: clear to auscultation bilaterally Cardio Jugular venous distension: no JVD Rate: regular rate Rhythm: regular rhythm Heart sounds: S1 normal heart sound present and S2 normal heart sound present Extrem General: Yes full ROM Psych Affect: Anxious affect present Results AMB Hemoglobin A1c AMB Hemoglobin A1c 6.7 % Last Edit by STANLEY Smalls on 08/25/24 09:27 Results Reviewed Results Reviewed: Laboratory Last Values Hgb A1c (Clinic) 6.7 % (4.0-6.0) H 08/25/24 09:14 Coding Level of Care Code Est Pt Level 4 (90123) Complex EM visit Add On G2211 Diagnoses Essential hypertension I10 Morbid obesity with BMI of 40.0-44.9, adult E66.01; Z68.41 Microalbuminuria R80.9 Hyperlipidemia LDL goal <70 E78.5 Type 2 diabetes mellitus without complication, without long-term current use of insulin E11.9 Diabetes mellitus type: type 2 Diabetes mellitus exterminator helper insulin use: without exterminator helper use Diabetes mellitus complication status: without complication Mild major depression F32.0 COCO (generalized anxiety disorder) F41.1 Additional Codes COCO-7 Assessment Billing - COCO-7 Assessment Tool: COCO-7 Assessment 20393 ([id number]) Time Spent (min) 26 Assessment & Plan Assessment & Plan (1) Essential hypertension: Code(s): I10 - Essential (primary) hypertension Category: Medical (2) Morbid obesity with BMI of 40.0-44.9, adult: Code(s): E66.01 - Morbid (severe) obesity due to excess calories; Z68.41 - Body mass index [BMI] 40.0-44.9, adult Category: Medical (3) Microalbuminuria: Code(s): R80.9 - Proteinuria, unspecified Category: Medical (4) Hyperlipidemia LDL goal <70: Code(s): E78.5 - Hyperlipidemia, unspecified Category: Medical (5) Diabetes mellitus: Code(s): E11.9 - Type 2 diabetes mellitus without complications Category: Medical Qualifiers: Diabetes mellitus type: type 2 Diabetes mellitus exterminator helper insulin use: without [place] use Diabetes mellitus complication status: without complication Qualified Code(s): E11.9 - Type 2 diabetes mellitus without complications (6) Mild major depression: Code(s): F32.0 - Major depressive disorder, single episode, mild Category: Medical (7) COCO (generalized anxiety disorder): Code(s): F41.1 - Generalized anxiety disorder Category: Medical Plan The patient's hypertension management includes an increase in lisinopril dosage to better control blood pressure and protect renal function. For diabetes management, the patient is advised to continue monitoring blood glucose levels and maintain current medication regimen, as her HbA1c indicates good control. Proteinuria is being managed with lisinopril, and the patient is reassured about the normal renal function and the non-threatening nature of her current proteinuria levels. The patient is encouraged to maintain a healthy lifestyle to further reduce proteinuria. Anxiety and insomnia are addressed with lifestyle modifications, and the patient is advised to manage stress to improve sleep quality. Hydroxyzine is suggested as a potential aid for anxiety and associated symptoms. For obesity, the patient is referred to weight management and a vegetable trimmer to support dietary changes and exercise efforts. The patient is advised to continue efforts in weight loss to improve overall health outcomes. Migraine management includes adjusting the dosage of sumatriptan to better control symptoms. Patient was informed and verbally consented to the use of an ambient scribe for clinic note documentation during this visit. I discussed with the patient the importance of controlling her blood pressure and blood glucose levels to protect her renal function and manage proteinuria. We talked about the non-threatening nature of her current proteinuria levels and the role of lisinopril in managing this condition. I emphasized the need for lifestyle modifications to address her anxiety and insomnia, and suggested hydroxyzine as a potential aid. We also discussed the importance of weight management and dietary changes, and I referred her to a vegetable trimmer for further support. For her migraines, we agreed on adjusting the dosage of sumatriptan to better control her symptoms. Orders: Orders Vitamin B12 and Folate 4 Months E53.8 - Deficiency of other specified B group vitamins Lipid Panel 4 Months E78.5 - Hyperlipidemia, unspecified Comprehensive [place]. Panel Fast 4 Months E66.01 - Morbid (severe) obesity due to excess calories, Z68.41 - Body mass index [BMI] 40.0-44.9, adult AMB Hemoglobin A1c Today E11.9 - Type 2 diabetes mellitus without complications Vitamin D 25-OH Total 4 Months E55.9 - Vitamin D deficiency, unspecified Microalbumin, Random (w Creat) 4 Months R80.9 - Proteinuria, unspecified Referrals Banquet Manager Nutrition Referral E11.9 - Type 2 diabetes mellitus without complications Medications: New hydroxyzine HCl 25 mg PO BEDTIME 90 tabs 0RF 90 days lisinopril 10 mg PO DAILY 90 tabs 1RF 90 days I10 - Essential (primary) hypertension sumatriptan succinate do not exceed 4 doses per 24 hrs 50 mg PO Q2-4H PRN 9 tabs 2RF migraine headache 30 days Refilled blood-glucose meter (FreeStyle Lite Meter kit) As directed 1 ea 0RF E11.9 - Type 2 diabetes mellitus without complications blood sugar diagnostic (FreeStyle Lite Strips) Use 1 test strip once a day 100 ea 3RF E11.9 - Type 2 diabetes mellitus without complications lancets (FreeStyle Lancets) As directed 100 ea 3RF E11.9 - Type 2 diabetes mellitus without complications Discontinued szpdnboakp-tsihmkexow-sil-cod [id number] mg Discontinued Reason: Patient Completed Course 1 cap PO Q4H 30 days PRN 14 caps 0RF headaches lisinopril Discontinued Reason: Patient Completed Course 2.5 mg PO DAILY 90 days 90 tabs 1RF sumatriptan succinate do not exceed 8 doses per 24 hrs Discontinued Reason: Patient Refused 25 mg PO Q2-4H 30 days PRN 9 tabs 3RF migraine headache Patient Instructions: - Continue taking lisinopril as prescribed to manage blood pressure and protect kidneys. - Monitor blood glucose levels regularly and maintain current diabetes medications. - Follow a healthy lifestyle to reduce proteinuria and improve overall health. - Manage stress and consider hydroxyzine for anxiety and insomnia. - Engage in weight management and dietary changes with guidance from a vegetable trimmer. - Adjust sumatriptan dosage as discussed for migraine management.
[2024-08-25 09:16] VITALS: BP 138/100; BMI 41.8
== END 2024-08-25 09:58 | disposition home or self-care (01) ==
LOC: HO.HMCH 09:08
PROVIDERS: PCP Internal Medicine; Visit Provider Internal Medicine
DX: I10 Essential (primary) hypertension (principal); E66.01 Morbid (severe) obesity due to excess calories; Z68.41 Body mass index [BMI] 40.0-44.9, adult; E11.9 Type 2 diabetes mellitus without complications; R80.9 Proteinuria, unspecified; E78.5 Hyperlipidemia, unspecified; F32.0 Major depressive disorder, single episode, mild; F41.1 Generalized anxiety disorder

== ENCOUNTER → 2024-08-25 09:08 | Outpatient (BNVA) | payer OTHER, SELFPAY | PROVIDERS: PCP Internal Medicine; Visit Provider Internal Medicine | DX: E11.9 Type 2 diabetes mellitus without complications (principal); I10 Essential (primary) hypertension; G47.00 Insomnia, unspecified; R80.9 Proteinuria, unspecified; G43.909 Migraine, unspecified, not intractable, without status migrainosus; E66.01 Morbid (severe) obesity due to excess calories; E78.5 Hyperlipidemia, unspecified; F32.0 Major depressive disorder, single episode, mild; F41.1 Generalized anxiety disorder; Z68.41 Body mass index [BMI] 40.0-44.9, adult | CPT/HCPCS: 83036; 96127; 99212 ==

== ENCOUNTER 2024-09-08 10:42 | Outpatient (AMB) | payer OTHER, SELFPAY ==
[2024-09-08 10:46] VITALS: BP 130/72; PULSE 108; O2SAT 97; BMI 41.4
--- NOTE | 2024-09-08 10:46 | HO.NEPHOV_ITS ---
Vital Signs 09/08/24 10:46 Height 5 ft 1 in Weight 219 lb BMI 41.4 BP 130/72 Blood Pressure Location Lt brachial Position Sitting Pulse 108 H Pulse Source Pulse Oximeter Pulse Oximetry (%) 97 Oxygen Delivery Method Room Air Intake Visit Reasons: INP: Proteinuria/ Conf Director Of Food And Beverage Services Required: No Accompanied by: boyfriend Allergies No Known Allergies Allergy (Verified 09/08/24 10:48) Medication List - Last Reconciled 09/08/24 by Tony Chase MD atorvastatin 10 mg PO BEDTIME 90 days blood sugar diagnostic (FreeStyle Lite Strips) Use 1 test strip once a day blood-glucose meter (FreeStyle Lite Meter kit) As directed wszuegympx-vyxitxmjcc-mya-cod [id number] mg 1 cap PO Q4H PRN cholecalciferol (vitamin D3) 25 mcg PO DAILY 90 days clotrimazole-betamethasone 1-0.05 % 1 appl topical BID 2 weeks cyanocobalamin (vitamin B-12) 500 mcg PO DAILY fluocinolone and shower cap 0.01 % topical PRN hydrocortisone 2.5% topical PRN hydroxyzine HCl 25 mg PO BEDTIME 90 days lancets (FreeStyle Lancets) As directed lisinopril 10 mg PO DAILY 90 days metformin 850 mg PO BID 90 days norethindrone ac-eth estradiol 1.5-30 mg-mcg (Jesus) 1 tab PO DAILY omeprazole 40 mg PO BID PRN sumatriptan succinate 50 mg PO Q2-4H PRN 30 days thiamine HCl (vitamin B1) 100 mg PO DAILY 90 days Ventolin HFA 90 mcg/actuation (albuterol sulfate) 1 puff inhalation QID 30 days NS HPI Comments Details: The patient is a 28-year-old female referred for microalbuminuria The patient has been diagnosed with diabetes mellitus for six years, with recent HbA1c levels at 6.7%, slightly elevated from 6.0% in March. She admits to dietary indiscretions and inconsistent water intake, which may have contributed to the elevated levels. She is currently on metformin, Hypertension was first noted during her , associated with preeclampsia,( Dec 2023) and she was treated with procardia and lisinopril post-. She has since stopped lisinopril due to perceived normalization of blood pressure at home, although elevated readings were noted in clinical settings. . She has a history of asthma and migraine, which have been managed over time. The patient reports anxiety and depression, which have been exacerbated by her health concerns and weight fluctuations. Her weight has varied, with recent measurements showing a decrease from 250 pounds to 235 pounds. Proteinuria was identified, likely secondary to diabetes and obesity, with a urine microalbumin Cr ratio of 123, PFSH Medical History Severe obesity (BMI 35.0-39.9) with comorbidity Hyperlipidemia LDL goal <70 Morbid obesity Mild asthma Surgical History History of History of colonoscopy History of wisdom tooth extraction Family History Mother Diabetes Asthma Hypertension Father Diabetes Maternal Grandfather Colon cancer Maternal Aunt Colon cancer Social History Housing: Apartment Alcohol intake: never Patient Tobacco Use Status: Never used Tobacco e-Cigarette/Vaping Use: Currently Using (sometimes) Second Hand Smoke Exposure: No service: No Current occupational status: unemployed Cognitive needs: No Hearing needs: No Vision needs: Yes Review of Systems Const Denies fever(s) and Denies weight loss Card Denies chest pain Resp Denies cough and Denies hemoptysis GI Denies abdominal pain, Denies diarrhea and Denies nausea Musc Denies back pain Neuro Denies focal weakness Physical Exam Vital Signs: Last Vital Signs Pulse 108 H 09/08/24 10:46 BP 130/72 09/08/24 10:46 Pulse Ox 97 09/08/24 10:46 Oxygen Delivery Method Room Air 09/08/24 10:46 BMI result Body Mass Index 41.4 Comfortable ; Obese Neck supple no JVD. Lungs entry equal no rales. Heart S1-S2 heard no gallop or rub. Abdomen soft nontender. Neuro alert awake oriented. No asterixis. Extremities no edema. Results Reviewed Nephrology Results: Hgb, (12.0-16.0) 15.4 g/dl 08/21/24 WBC, (4.8-10.8) 8.8 X10*3/uL 08/21/24 Plt Count, (160-400) 343 X10*3/uL 08/21/24 Sodium, (135-145) 137 mmol/L 08/21/24 Potassium, (3.3-5.1) 3.7 mmol/L 08/21/24 Chloride, (96-108) 105 mmol/L 08/21/24 Carbon Dioxide, (22-29) 22 mmol/L 08/21/24 BUN, (9-16) 8 mg/dL L 08/21/24 Creatinine, (0.5-1.4) 0.68 mg/dL 08/21/24 Calcium, (8.4-10.2) 9.3 mg/dL 08/21/24 Urine Creatinine 221.53 mg/dL 08/19/24 Assessment & Plan Assessment & Plan (1) Microalbuminuria: Code(s): R80.9 - Proteinuria, unspecified Category: Medical Plan Microalbuminuria In the setting of diabetes mellitus and obesity. Renal function is normal at this time. She could probably have hyper filtration Blood pressure is acceptable -Continue lisinopril for renal protection - Needs weight loss: Aim to lose 0.5 to 1 pound per week through diet and exercise. - Engage in at least one hour of walking daily and track food intake. - Attend the inverter and clipper appointment on September 26 for dietary planning. - Follow up urine test as ordered to monitor protein levels in 2 months - Keep HbA1c levels under control to prevent progression of underlying renal disease - continue to monitor blood pressure at home Orders: Orders UA and rflx microscopic 2 Months Tony Chase MD R80.9 - Proteinuria, unspecified Creatinine Urine 2 Months Tony Chase MD R80.9 - Proteinuria, unspecified Basic Metabolic Panel 2 Months Tony Chase MD R80.9 - Proteinuria, unspecified Total Protein Urine Random 2 Months Tony Chase MD R80.9 - Proteinuria, unspecified Medications: Changed From omeprazole 40 mg PO BID 14 days 28 caps 0RF To omeprazole 40 mg PO BID PRN MARY Reynoso Coding Level of Care Code New Pt Level 4 (74210) Diagnoses Microalbuminuria R80.9
== END 2024-09-08 11:24 | disposition home or self-care (01) ==
LOC: HO.HKA 10:43
PROVIDERS: PCP Internal Medicine; Visit Provider Internal Medicine Hypertension Specialist
DX: R80.9 Proteinuria, unspecified (principal)
CPT/HCPCS: 99204

== ENCOUNTER → 2024-09-08 10:42 | Outpatient (BNVA) | payer OTHER, SELFPAY | PROVIDERS: PCP Internal Medicine; Visit Provider Internal Medicine Hypertension Specialist | DX: E11.9 Type 2 diabetes mellitus without complications (principal); R80.9 Proteinuria, unspecified; J45.909 Unspecified asthma, uncomplicated; E66.9 Obesity, unspecified | CPT/HCPCS: 99202 ==

== ENCOUNTER 2024-09-26 13:57 | Outpatient (AMB) | payer OTHER, SELFPAY ==
--- NOTE | 2024-09-26 14:08 | MHC.AMNUTRGE ---
VS Expanded 09/26/24 14:11 10/04/24 20:12 Height 5 ft 1 in 5 ft 1 in Weight 207 lb 7.28 oz 208 lb BMI 39.2 39.3 Intake Visit Reasons: Type 2 diabetes mellitus without complications Allergies No Known Allergies Allergy (Verified 09/08/24 10:48) Nutrition Presentation Details: Pt presents or MNT for T2DM, referred by PCP. Pt presents with and baby during this appt Pt is very worried and teary related to recent episode of microalbuminurea. Pt reports working on weight loss and following recommendations from internet and also eliminating salt intake , strictly using no salt seasonings and reports not adding salt to foods. Pt reports drastic diet modifications (choosing protein and non starchy vegetables, limited salt/fat intake) and is hesitant regarding recommendations in adding whole grains to the meals to slow down rate of weight loss. Noted wt on 09/08/24 at [facility] [place] visit at 219 lbs and today at this nutrition visit 208 lbs Pt denies using laxatives,herbal remedies or non food related methods for weight loss. Pt reports feeling hungry and at the same time hesitant about slowing down rate of weight loss by adding whole grain foods. Today we discussed importance of learning to balance meals for longevity and importance of slowing down rate of weight loss, preventing muscle wasting. Pt reports currently not participating in physical activity BS Monitoring Most Recent Diabetes Results: Microalb/Creat Ratio, (<30) 123.2 ug/mg cr H 08/19/24 Cholesterol, (<200) 148 mg/dL 08/19/24 HDL Cholesterol, (>40) 47 mg/dL 08/19/24 Triglycerides, (<150) 146 mg/dL 08/19/24 Creatinine, (0.5-1.4) 0.68 mg/dL 08/21/24 BUN, (9-16) 8 mg/dL L 08/21/24 Sodium, (135-145) 137 mmol/L 08/21/24 Potassium, (3.3-5.1) 3.7 mmol/L 08/21/24 Chloride, (96-108) 105 mmol/L 08/21/24 Carbon Dioxide, (22-29) 22 mmol/L 08/21/24 Calcium, (8.4-10.2) 9.3 mg/dL 08/21/24 AST, (5-31) 49 U/L H 08/21/24 ALT, (0-31) 46 U/L H 08/21/24 Total Protein, (6.5-8.0) 7.5 g/dL 08/21/24 Albumin, (3.5-5.0) 4.5 g/dL 08/21/24 MFG-Lpkqbmy-Ef.Markor Equation Height: 5 ft 1 in Weight: 208 lb Resting Metabolic Rate: 1607.22 Calculated Activity Level: Sedentary Calories Needed to Maintain Weight: 1928.66 [facility] Medical History Severe obesity (BMI 35.0-39.9) with comorbidity Hyperlipidemia LDL goal <70 Morbid obesity Mild asthma Surgical History History of History of colonoscopy History of wisdom tooth extraction Family History Mother Diabetes Asthma Hypertension Father Diabetes Maternal Grandfather Colon cancer Maternal Aunt Colon cancer Social History Housing: Apartment Alcohol intake: never Patient Tobacco Use Status: Never used Tobacco e-Cigarette/Vaping Use: Currently Using (sometimes) Second Hand Smoke Exposure: No service: No Current occupational status: unemployed Cognitive needs: No Hearing needs: No Vision needs: Yes Assessment & Plan Assessment & Plan (1) Diabetes mellitus: Code(s): E11.9 - Type 2 diabetes mellitus without complications Category: Medical Qualifiers: Diabetes mellitus complication status: without complication Diabetes mellitus ocean transportation intermediary insulin use: without penitentiary use Diabetes mellitus type: type 2 Qualified Code(s): E11.9 - Type 2 diabetes mellitus without complications Plan: Wt: 94.5 Kg ( 10/07 ) Est kcal needs as per MSJ: 2000 (40% carb, 30% protein/fat) Est fluid needs as per 25-30 ml/d:2800 Est prot per day as per 1 g/kg bw:75- 100 Recommend fiber intake : 8-10 g per day and gradually increase to 25-28 g per day for women and 35-38 g for men or as tolerated Recommend sodium intake per day : less than 2000 mg Educated patient on: ( R = reviewed V = verbalizes understanding N/R = needs review N/A = not applicable Food sources of carbohydrate, adequate serving sizes and its role in various health conditions: R V N/R Differences between complex carbohydrates a simple carbohydrates, role of fiber in diet: R Lean protein sources of foods: R Differences between types of fats and role in diet (mono on saturated fat fatty acids, saturated fatty acids, trans fats): R V N/R Food sources of sodium in salt and healthy modifications for heart health in kidney health: R V R/V Vitamins and minerals: R V N/R Healthy plate method concept: R V N/R Physical activity: Benefits a precaution: R Hypoglycemia protocol (rule of 15): R V N/R Dietary prevention of Hyperglycemia: R Patient Instructions: Slow down rate of weight loss to 1-2 lbs per week Have 3 small meals/day and 1-2 snacks meals consisting of 45 -60 g carbs (choose whole grains, fruits, low fat dairy)/ 3-4 oz of lean protein (vary poultry/fish/lean beef) and snack on 20 g carb/1 oz lean protein (ex yogurt or fruit with peanut butter Keep hydrated by having water/milk/juice diluted with water see meal ideas Incorporate walking 30 minutes every other day keep a food record and bring to your followup call for questions prior to next follow up Coding Level of Care Code Nutr Indiv Intake (60247) Diagnoses Type 2 diabetes mellitus without complication, without long-term current use of insulin E11.9 Diabetes mellitus complication status: without complication Diabetes mellitus ocean transportation intermediary insulin use: without ocean transportation intermediary use Diabetes mellitus type: type 2 Time Spent (min) 30
[2024-09-26 14:11] VITALS: BMI 39.2
[2024-10-04 20:12] VITALS: BMI 39.3
== END 2024-09-26 14:53 | disposition home or self-care (01) ==
LOC: HO.ENCR 13:58
PROVIDERS: PCP Internal Medicine; Visit Provider Dietitian, Registered
DX: E11.9 Type 2 diabetes mellitus without complications (principal)

== ENCOUNTER → 2024-09-26 13:57 | Outpatient (BNVA) | payer OTHER, SELFPAY | PROVIDERS: PCP Internal Medicine; Visit Provider Dietitian, Registered | DX: E11.9 Type 2 diabetes mellitus without complications (principal) | CPT/HCPCS: 97802 ==

== ENCOUNTER 2024-11-21 09:31 | Outpatient (REF) | payer OTHER, SELFPAY ==
[2024-11-21 10:29] LABS: Anion Gap 15 (12-20); Blood Urea Nitrogen 7 mg/dL (9-16); Calcium 9.2 mg/dL (8.4-10.2); Carbon Dioxide 22 mmol/L (22-29); Chloride 105 mmol/L (96-108); Estimated Glomerular Filt Rate > 60; Potassium 4.0 mmol/L (3.3-5.1); Sodium 138 mmol/L (135-145)
[2024-11-21 10:52] LABS: Appearance Urine Clear; Glucose Urine UA Negative (Negative); PH 5.5 (5.0-9.0); Specific Gravity - Urine 1.010 (1.005-1.025)
[2024-11-21 12:07] LABS: Total Protein Urine Random < 7 mg/dL (<12)
== END 2024-11-21 09:32 | disposition home or self-care (01) ==
LOC: HO.LAB 09:31
PROVIDERS: PCP Internal Medicine; Visit Provider Internal Medicine Hypertension Specialist
DX: E11.9 Type 2 diabetes mellitus without complications (principal); R80.9 Proteinuria, unspecified; Z79.899 Other long term (current) drug therapy
CPT/HCPCS: 36415; 80048; 81003; 82570; 84156; 97803

== ENCOUNTER 2024-11-21 10:25 | Outpatient (AMB) | payer OTHER, SELFPAY ==
[2024-11-21 10:48] VITALS: BMI 36.9
--- NOTE | 2024-11-21 10:48 | MHC.AMNUTRGE ---
VS Expanded 11/21/24 10:48 Height 5 ft 1 in Weight 195 lb 8.8 oz BMI 36.9 Intake Visit Reasons: Type 2 diabetes mellitus without complications Allergies No Known Allergies Allergy (Verified 09/08/24 10:48) Nutrition Presentation Details: Pt presnts fro MNT for T2DM Pt is keeping track of her glucose level and per printed record brought BG ranges from 98-148 mgdl, (pre/post meals) occ 180 post prandially Pt reports feeling more comfortable with balancing meals , feels more relax today Reports not adding salt to foods Typical meal intake oatmeal and p.b. with coconut water chicken with tomato avocado and 2 corn tortillas eggs/avocado/cracker and tomatoes Feeling more comfortable wtih balancing meals engaging in physical activity 3-4 times/wk 1hr (walk) keeping hydrated by having water with meals , sometimes diet beverages BS Monitoring Most Recent Diabetes Results: Microalb/Creat Ratio, (<30) 123.2 ug/mg cr H 08/19/24 Cholesterol, (<200) 148 mg/dL 08/19/24 HDL Cholesterol, (>40) 47 mg/dL 08/19/24 Triglycerides, (<150) 146 mg/dL 08/19/24 Creatinine, (0.5-1.4) 0.66 mg/dL 11/21/24 BUN, (9-16) 7 mg/dL L 11/21/24 Sodium, (135-145) 138 mmol/L 11/21/24 Potassium, (3.3-5.1) 4.0 mmol/L 11/21/24 Chloride, (96-108) 105 mmol/L 11/21/24 Carbon Dioxide, (22-29) 22 mmol/L 11/21/24 Calcium, (8.4-10.2) 9.2 mg/dL 11/21/24 AST, (5-31) 49 U/L H 08/21/24 ALT, (0-31) 46 U/L H 08/21/24 Total Protein, (6.5-8.0) 7.5 g/dL 08/21/24 Albumin, (3.5-5.0) 4.5 g/dL 08/21/24 [facility] Medical History Severe obesity (BMI 35.0-39.9) with comorbidity Hyperlipidemia LDL goal <70 Morbid obesity Mild asthma Surgical History History of History of colonoscopy History of wisdom tooth extraction Family History Mother Diabetes Asthma Hypertension Father Diabetes Maternal Grandfather Colon cancer Maternal Aunt Colon cancer Social History Housing: Apartment Alcohol intake: never Patient Tobacco Use Status: Never used Tobacco e-Cigarette/Vaping Use: Currently Using (sometimes) Second Hand Smoke Exposure: No service: No Current occupational status: unemployed Cognitive needs: No Hearing needs: No Vision needs: Yes Assessment & Plan Assessment & Plan (1) Diabetes mellitus: Code(s): E11.9 - Type 2 diabetes mellitus without complications Category: Medical Qualifiers: Diabetes mellitus complication status: without complication 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 mellitus 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 terminal plant operator insulin use: without petroleum terminal plant operator use Diabetes mellitus type: type 2 Qualified Code(s): E11.9 - Type 2 diabetes mellitus without complications Plan: Wt: 94.5 Kg ( 10/07 ), 90 kg (12/08) Est kcal needs as per MSJ: 1800 (40% carb, 30% protein/fat) Est fluid needs as per 25-30 ml/d:2700 Est prot per day as per 1 g/kg bw:70- 90 Recommend fiber intake : 8-10 g per day and gradually increase to 25-28 g per day for women and 35-38 g for men or as tolerated Recommend sodium intake per day : less than 2000 mg Educated patient on: ( R = reviewed V = verbalizes understanding N/R = needs review N/A = not applicable Food sources of carbohydrate, adequate serving sizes and its role in various health conditions: R Differences between complex carbohydrates a simple carbohydrates, role of fiber in diet: R Lean protein sources of foods: R Differences between types of fats and role in diet (mono on saturated fat fatty acids, saturated fatty acids, trans fats): R Food sources of sodium in salt and healthy modifications for heart health in kidney health: R ,v Vitamins and minerals: R V N/R Healthy plate method concept: R ,v Physical activity: Benefits a precaution: R ,v Hypoglycemia protocol (rule of 15): R V N/R Dietary prevention of Hyperglycemia: R ,v Patient Instructions: Continue working on following healthy plate method 45-60 g complex carbs per meal and low fat /lean protein foods continue physical activity goal 150 minute/wk, keep hydrated Coding Level of Care Code Nutr Indiv Subseq (25290) Diagnoses Type 2 diabetes mellitus without complication, without long-term current use of insulin E11.9 Diabetes mellitus complication status: without complication 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
== END 2024-11-21 11:17 | disposition home or self-care (01) ==
PROVIDERS: PCP Internal Medicine; Visit Provider Dietitian, Registered
DX: E11.9 Type 2 diabetes mellitus without complications (principal)

== ENCOUNTER 2024-12-05 10:54 | Outpatient (AMB) | payer OTHER, SELFPAY ==
[2024-12-05 10:58] VITALS: BP 110/74; PULSE 87; O2SAT 97; BMI 36.1
--- NOTE | 2024-12-05 10:58 | HO.NEPHOV_ITS ---
Vital Signs 12/05/24 10:58 Height 5 ft 1 in Weight 191 lb BMI 36.1 BP 110/74 Blood Pressure Location Lt brachial Position Sitting Pulse 87 Pulse Source Pulse Oximeter Pulse Oximetry (%) 97 Oxygen Delivery Method Room Air Intake Visit Reasons: FU-Conf Subassembler Required: No Subassembler Services: Subassembler Offered & Declined (Patient understands Yi ) Accompanied by: Spouse Allergies No Known Allergies Allergy (Verified 12/05/24 11:01) Medication List - Last Reconciled 12/05/24 by Tony Chase MD alcohol swabs (Alcohol Prep Pads) 1 pad topical .once a day 90 days atorvastatin 10 mg PO BEDTIME 90 days blood sugar diagnostic (FreeStyle Lite Strips) Use 1 test strip once a day blood-glucose meter (FreeStyle Lite Meter kit) As directed dkomctftel-vukquptovg-wma-cod [id number] mg 1 cap PO Q4H PRN cholecalciferol (vitamin D3) 25 mcg PO DAILY 90 days clotrimazole-betamethasone 1-0.05 % 1 appl topical BID 2 weeks cyanocobalamin (vitamin B-12) 500 mcg PO DAILY fluocinolone and shower cap 0.01 % topical PRN hydrocortisone 2.5% topical PRN hydrocortisone 2.5% 1 appl [place] BID-QID PRN 30 days hydroxyzine HCl 25 mg PO BEDTIME 90 days ketoconazole 2% topical 2XW lancets (FreeStyle Lancets) As directed lisinopril 10 mg PO DAILY 90 days metformin 850 mg PO BID 90 days norethindrone ac-eth estradiol 1.5-30 mg-mcg (Jesus) 1 tab PO DAILY omeprazole 40 mg PO BID PRN sumatriptan succinate 50 mg PO Q2-4H PRN 30 days thiamine HCl (vitamin B1) 100 mg PO DAILY 90 days Ventolin HFA 90 mcg/actuation (albuterol sulfate) 1 puff inhalation QID 30 days NS HPI Comments Details: The patient is a 28-year-old female referred for microalbuminuria The patient has been diagnosed with diabetes mellitus for six years, with recent HbA1c levels at 6.7%, slightly elevated from 6.0% in March. She admits to dietary indiscretions and inconsistent water intake, which may have contributed to the elevated levels. She is currently on metformin, Hypertension was first noted during her , associated with preeclampsia,( Dec 2023) and she was treated with procardia and lisinopril post-. She has since stopped lisinopril due to perceived normalization of blood pressure at home, although elevated readings were noted in clinical settings. . She has a history of asthma and migraine, which have been managed over time. The patient reports anxiety and depression, which have been exacerbated by her health concerns and weight fluctuations. Her weight has varied, with recent measurements showing a decrease from 250 pounds to 235 pounds. Proteinuria was identified, likely secondary to diabetes and obesity, with a urine microalbumin Cr ratio of 123, 12/05/24 - The patient is a 29-year-old female presenting with proteinuria and hypertension. - Proteinuria is improving with decreased protein levels. - Hypertension is managed with lisinopril 10 mg, maintaining stable blood pressure. - Reports low back pain unrelated to renal issues. - Weight reduced from 209 to 189.6 pounds, improving health markers. [facility] Medical History Severe obesity (BMI 35.0-39.9) with comorbidity Hyperlipidemia LDL goal <70 Morbid obesity Mild asthma Surgical History History of History of colonoscopy History of wisdom tooth extraction Family History Mother Diabetes Asthma Hypertension Father Diabetes Maternal Grandfather Colon cancer Maternal Aunt Colon cancer Social History Housing: Apartment Alcohol intake: never Patient Tobacco Use Status: Never used Tobacco e-Cigarette/Vaping Use: Currently Using (sometimes) Second Hand Smoke Exposure: No service: No Current occupational status: unemployed Cognitive needs: No Hearing needs: No Vision needs: Yes Physical Exam Vital Signs: Last Vital Signs Pulse 87 12/05/24 10:58 BP 110/74 12/05/24 10:58 Pulse Ox 97 12/05/24 10:58 Oxygen Delivery Method Room Air 12/05/24 10:58 BMI result Body Mass Index 36.1 Comfortable Neck supple no JVD. Lungs entry equal no rales. Heart S1-S2 heard no gallop or rub. Abdomen soft nontender. Neuro alert awake oriented. No asterixis. Extremities no edema. Results Reviewed Nephrology Results: Hgb, (12.0-16.0) 15.4 g/dl 08/21/24 WBC, (4.8-10.8) 8.8 X10*3/uL 08/21/24 Plt Count, (160-400) 343 X10*3/uL 08/21/24 Sodium, (135-145) 138 mmol/L 11/21/24 Potassium, (3.3-5.1) 4.0 mmol/L 11/21/24 Chloride, (96-108) 105 mmol/L 11/21/24 Carbon Dioxide, (22-29) 22 mmol/L 11/21/24 BUN, (9-16) 7 mg/dL L 11/21/24 Creatinine, (0.5-1.4) 0.66 mg/dL 11/21/24 Calcium, (8.4-10.2) 9.2 mg/dL 11/21/24 Urine Protein, (Neg-Trace) Negative mg/dL 11/21/24 Urine Creatinine 90.69 mg/dL 11/21/24 Assessment & Plan Assessment & Plan (1) Microalbuminuria: Code(s): R80.9 - Proteinuria, unspecified Category: Medical Plan Microalbuminuria In the setting of diabetes mellitus and obesity. Renal function is normal at this time. She could probably have hyper filtration Blood pressure is acceptable -Continue lisinopril for renal protection - continue with weight loss: Aim to lose 0.5 to 1 pound per week through diet and exercise. - Engage in at least one hour of walking daily and track food intake. - Attend the mechanical tech appointment on September 26 for dietary planning. - Follow up urine test as ordered to monitor protein levels in 6 months - Keep HbA1c levels under control to prevent progression of underlying renal disease - continue to monitor blood pressure at home Orders: Orders Basic Metabolic Panel 6 Months R80.9 - Proteinuria, unspecified Total Protein Urine Random 6 Months R80.9 - Proteinuria, unspecified Creatinine Urine 6 Months R80.9 - Proteinuria, unspecified UA and rflx microscopic 6 Months R80.9 - Proteinuria, unspecified Coding Level of Care Code Est Pt Level 4 (98762) Diagnoses Microalbuminuria R80.9
== END 2024-12-05 11:14 | disposition home or self-care (01) ==
LOC: HO.HKA 10:56
PROVIDERS: PCP Internal Medicine; Visit Provider Internal Medicine Hypertension Specialist
DX: R80.9 Proteinuria, unspecified (principal)
CPT/HCPCS: 99214

== ENCOUNTER → 2024-12-05 10:54 | Outpatient (BNVA) | payer OTHER, SELFPAY | PROVIDERS: PCP Internal Medicine; Visit Provider Internal Medicine Hypertension Specialist | DX: E11.9 Type 2 diabetes mellitus without complications (principal); R80.9 Proteinuria, unspecified; E66.9 Obesity, unspecified | CPT/HCPCS: 99212 ==

== ENCOUNTER 2024-12-08 11:50 | Emergency (ER) | payer OTHER, SELFPAY ==
[2024-12-08 12:21] VITALS: BP 138/83; PULSE 94; RESP 18; TEMP 36.5; O2SAT 97; BMI 35.9
--- NOTE | 2024-12-08 12:26 | ED.GENADULT ---
HPI - General Adult General Chief complaint: General Medical Stated complaint: Rectal pain Time Seen by Provider: 12/08/24 13:44 Source: patient and family () Mode of arrival: ambulatory Limitations: no limitations History of Present Illness ED Provider: DR. Blackman HPI narrative: 29-year-old female with history of HTN, T2 DM patient came in for a concern of having protein in her urine that showed in her prior UA analysis, patient also is concern of having rectal pain secondary to hemorrhoid, patient has been using [id number] hemorrhoid cream for rectal area without improvement of the pain feels like stabbing pain to the rectal area, normal bowel movement, no constipation, never had a surgical history of hemorrhoid removal. Related Data Home Medications ?Medication ?Instructions ?Recorded ?Confirmed cyanocobalamin (vitamin B-12) 500 500 mcg PO DAILY 03/29/24 12/05/24 mcg tablet butalbital 50 mg-acetaminophen 325 1 cap PO Q4H PRN headache 09/08/24 12/05/24 mg-caffeine 40 mg-codeine 30 mg cap fluocinolone 0.01 % scalp oil and topical PRN 09/08/24 12/05/24 shower cap hydrocortisone 2.5 % topical topical PRN 09/08/24 12/05/24 ointment norethindrone acetate 1.5 1 tab PO DAILY 09/08/24 12/05/24 mg-ethinyl estradiol 30 mcg tablet (Jesus) omeprazole 40 mg capsule,delayed 40 mg PO BID PRN 09/08/24 12/05/24 release ketoconazole 2 % shampoo topical 2XW 12/05/24 12/05/24 Previous Rx's ?Medication ?Instructions ?Recorded clotrimazole-betamethasone 1 1 appl topical BID 2 weeks #15 04/21/23 %-0.05 % topical cream grams thiamine HCl (vitamin B1) 100 mg 100 mg PO DAILY 90 days #90 tabs 05/01/23 tablet metformin 850 mg tablet 850 mg PO BID 90 days #180 tabs 06/20/24 blood sugar diagnostic (FreeStyle #100 ea 08/25/24 Lite Strips) blood-glucose meter (FreeStyle #1 ea 08/25/24 Lite Meter kit) lancets 28 gauge (FreeStyle #100 ea 08/25/24 Lancets) lisinopril 10 mg tablet 10 mg PO DAILY 90 days #90 tabs 08/25/24 sumatriptan succinate 50 mg tablet 50 mg PO Q2-4H PRN migraine 08/25/24 headache 30 days #9 tabs Ventolin HFA 90 mcg/actuation 1 puff inhalation QID 30 days #18 09/13/24 aerosol inhaler (albuterol sulfate) grams alcohol swabs (Alcohol Prep Pads) 1 pad topical .once a day 90 days 10/06/24 #100 ea atorvastatin 10 mg tablet 10 mg PO BEDTIME 90 days #90 tabs 10/23/24 cholecalciferol (vitamin D3) 25 25 mcg PO DAILY 90 days #90 caps 10/23/24 mcg (1,000 unit) capsule hydroxyzine HCl 25 mg tablet 25 mg PO BEDTIME 90 days #90 tabs 11/16/24 hydrocortisone 2.5 % topical cream 1 appl [place] BID-QID PRN hemorrhoids 12/07/24 with perineal applicator 30 days #30 grams lidocaine HCl 2 % mucosal solution 1 appl mucous membrane QID PRN 12/08/24 (Lidocaine Viscous) pain #100 mL Allergies Allergy/AdvReac Type Severity Reaction Status Date / Time No Known Allergies Allergy Verified 12/08/24 12:25 Review of Systems Review of Systems: All other systems are reviewed and are negative Constitutional: Reports as per HPI and Reports no additional constitutional complaints Eyes: Reports as per HPI and Reports no additional eye complaints Reports system reviewed and no additional complaints, except as documented Cardiovascular: Reports as per HPI and Reports no additional cardiovascular complaints Respiratory: Reports as per HPI and Reports no additional respiratory complaints Gastrointestinal: Reports as per HPI and Reports no additional gastrointestinal complaints Genitourinary: Reports no additional female genitourinary complaints Musculoskeletal: Reports no additional musculoskeletal complaints Skin/Breast: Reports system reviewed and no additional complaints, except as docu Psychiatric: Reports no additional psychiatric complaints Endocrine: Reports no additional endocrine complaints Hematologic/Lymphatic: Reports no additional hematologic/lymphatic complaints Allergic/Immunologic: Reports no additional allergic/immunologic complaints Reports system reviewed and no additional complaints, except as documented and Reports Abnormal speech present [facility] Past Medical History Medical History Severe obesity (BMI 35.0-39.9) with comorbidity Hyperlipidemia LDL goal <70 Morbid obesity Mild asthma Surgical History History of History of colonoscopy History of wisdom tooth extraction Family History Family History Mother Diabetes Asthma Hypertension Father Diabetes Maternal Grandfather Colon cancer Maternal Aunt Colon cancer Social History Social History Housing: Apartment Alcohol intake: never Patient Tobacco Use Status: Never used Tobacco e-Cigarette/Vaping Use: Currently Using Second Hand Smoke Exposure: No Advance Directives: No Advance Directives Information Provided: Yes Do you have a plan to hurt others: No Plan service: No Current occupational status: unemployed Cognitive needs: No Hearing needs: No Vision needs: Yes Physical Exam ED Vital Signs: Vital Signs - 24 hr 12/08/24 12:21 12/08/24 14:23 Temperature 97.7 F 98.5 F Pulse Rate 94 74 Respiratory Rate 18 20 Blood Pressure 138/83 111/65 Pulse Oximetry 97 98 Oxygen Delivery Method Room Air Room Air BMI result Body Mass Index 35.9 Vital signs have been reviewed and appear to be correct. Blood pressure elevated. Heart rate normal. Respiratory rate normal. Temperature normal. Oxygen saturation normal. Appearance: Anxious, Alert. Oriented X3. No acute distress. Head: Normal external exam. Normocephalic. Atraumatic. No Mckeon signs noted. No raccoon eyes noted Eyes: PERRLA. EOMI. Conjunctiva and sclera normal. Eyelids normal. ENT: TM's Normal. Pharynx normal. Uvula midline. Moist mucous membranes. No trismus noted. No drooling noted. No muffled voice noted. Neck: Normal inspection. Neck supple. FROM. No adenopathy. Thyroid Normal. No meningeal signs. No neck mass noted. CVS: Normal heart rate and rhythm. Heart sound normal. No murmurs noted. Pulses normal throughout. Respiratory: No respiratory distress. Painless inspiration. Breath sounds normal. No wheezes/rales/rhonchi noted. Chest nontender. No accessory muscle usage noted or decreased air movement noted. Abdomen: Soft and nontender. Bowel sounds normal in all 4 quadrants. No distention noted. No organomegaly noted. No visible injury noted. Rectal exam: Rectal exam shows external hemorrhoid at the 03:00 area, no thrombosis, no rectal fissure, no area of fluctuation or concern of abscess. Back: No CVA tenderness. Full range of motion noted. Skin: Skin warm and dry. Normal skin color. Normal skin turgor. No rashes/lesions/lacerations noted. Extremities: No lower extremity edema. Extremities exhibit normal range of motion. Extremities nontender. Neuro: Oriented X 3. Cranial nerve exam: II-XII are grossly intact No motor deficit. No sensory deficit. Reflexes normal. Course Course Course Narrative: This is an RME: Additional HPI, ROS, PE not included below will be deferred to primary provider. RME assessment and note performed by: Katerin Nathan PA-C This is a [id number] who presents to the ER with a complaint of hemorrhoids and abnormal UA. Reports that she was seen in August and was told that she had protein in her urine is concerned about that. She states that she also has had painful hemorrhoids but she has been using cream for. Plan: Labs, UA, further ER evaluation needed. Reevaluation(s) Reevaluation #1: 29-year-old female history of anxiety patient is presenting today for increased anxiety about issues related to her health. Patient is concern of protein in the urine UA today shows no proteinuria patient was educated that microalbumin is a right protein to keep tracking for her kidneys and diabetes patient was instructed to follow-up with her PCP as needed. Small hemorrhoid patient feels better with lidocaine 4% that was applied to the rectum patient now feels much better, there is no thrombosis of the hemorrhoid. Will discharge to follow-up with outpatient surgery. Time: 15:22 Medications Administered Discontinued Medications Generic Name Dose Route Start Last Admin Trade Name Freq PRN Reason Stop Dose Admin Lidocaine HCl 15 ml 12/08/24 13:53 12/08/24 14:01 Lidocaine Hcl Viscous 2 % 15 Ml Solution MUCOUS MEM 12/08/24 13:54 15 ml ONCE ONE Administration Medical Decision Making Differential Diagnosis Differential Diagnoses: The differential diagnosis associated with the presentation includes (Hemorrhoid, rectal abscess, anal fissure, UTI, electrolyte derangement, severe anemia.) Admission/Observation Consideration of admission/observation: Escalation of care including admission/observation considered Lab Data MDM Lab Attestation statement: I reviewed the patient's lab results. 12/08/24 14:23 12/08/24 14:23 Labs: Lab Results 12/08/24 12/08/24 Range/Units 14:18 14:23 WBC 7.6 (4.8-10.8) X10*3/uL RBC 4.71 (4.20-5.50) X10*6/uL Hgb 14.5 (12.0-16.0) g/dl Hct 42.7 (37.0-47.0) % MCV 90.7 (80.0-98.0) fL MCH 30.8 (27.0-33.0) pg MCHC 34.0 (31.0-35.0) g/dl RDW 13.1 (11.0-16.0) % Plt Count 343 (160-400) X10*3/uL MPV 9.0 L (9.4-12.3) fL Immature Gran % (Auto) 0.3 (0.0-0.4) % Neut % (Auto) 59.9 (45-73) % Lymph % (Auto) 29.3 (20-40) % [place] % (Auto) 6.4 (2-11) % Eos % (Auto) 3.7 (0-4) % Baso % (Auto) 0.4 (0-2) % Lymph # (Auto) 2.2 (1.2-4.9) X10*3/uL [place] # (Auto) 0.5 (0.1-1.2) X10*3/uL Eos # (Auto) 0.3 (0.0-0.4) X10*3/uL Baso # (Auto) 0.0 (0.0-0.2) X10*3/uL Abs Immat Gran (auto) 0.02 (0.00-0.03) X10*3/uL Absolute Neuts (auto) 4.6 (2.0-8.3) x10*3/uL Absolute Nucleated RBC 0.000 (0.0-0.012) X10*3/uL Nucleated RBC % (auto) 0.0 (0.0-0.2) /100WBC Sodium 141 (135-145) mmol/L Potassium 3.7 (3.3-5.1) mmol/L Chloride 109 H (96-108) mmol/L Carbon Dioxide 23 (22-29) mmol/L Anion Gap 13 (12-20) BUN 6 L (9-16) mg/dL Creatinine 0.62 (0.5-1.4) mg/dL Estim Creat Clear Calc 132.3 Estimated GFR > 60 Random Glucose 109 (60-115) mg/dL Calcium 8.7 (8.4-10.2) mg/dL Total Bilirubin 0.5 (0.0-1.0) mg/dL Direct Bilirubin 0.2 (0.0-0.5) mg/dL AST 19 (5-31) U/L ALT 15 (0-31) U/L Alkaline Phosphatase 48 (39-117) U/L Total Protein 6.5 (6.5-8.0) g/dL Albumin 4.0 (3.5-5.0) g/dL Lipase 15 (8-78) U/L Urine Color Yellow Urine Appearance Clear Urine pH 5.5 (5.0-9.0) Ur Specific [place] <= 1.005 (1.005-1.025) Urine Protein Negative (Neg-Trace) mg/dL Urine Glucose (UA) Negative (Negative) mg/dL Urine Ketones Trace (Negative) mg/dL Urine Blood Large (3+) H (Negative) Urine Nitrite Negative (Negative) Ur Leukocyte Esterase Negative (Negative) Urine RBC >20 H (0-2) /HPF Urine WBC 0-5 (0-5) /HPF Ur Squamous Epith Cells 0-2 (0-2) /HPF Urine Bacteria None Seen (None Seen) Hyaline Casts 0-2 (0-2) /LPF Urine Test NEGATIVE (NEGATIVE) Discharge Plan Discharge Clinical Impression: Hemorrhoids Patient Disposition: Home, Self-Care Instructions: Hemorrhoids (ED), Sitz Bath (DC) Prescriptions: New lidocaine HCl [Lidocaine Viscous] 2 % solution 1 appl mucous membrane QID PRN (Reason: pain) Qty: 100 0RF Rx Instructions: Apply quarter-inch to the painful hemorrhoid every 6 hours if needed No Action clotrimazole-betamethasone 1-0.05 % cream 1 appl topical BID 14 Days Qty: 15 1RF metformin 850 mg tablet 850 mg PO BID 90 Days Qty: 180 1RF albuterol sulfate [Ventolin HFA] 90 mcg/actuation HFA aerosol inhaler 1 puff inhalation QID 30 Days Qty: 18 2RF alcohol swabs [Alcohol Prep Pads] Pads, Medicated 1 pad topical .once a day 90 Days Qty: 100 3RF cholecalciferol (vitamin D3) 25 mcg (1,000 unit) capsule 25 mcg PO DAILY 90 Days Qty: 90 1RF atorvastatin 10 mg tablet 10 mg PO BEDTIME 90 Days Qty: 90 1RF hydroxyzine HCl 25 mg tablet 25 mg PO BEDTIME 90 Days Qty: 90 0RF hydrocortisone 2.5 % cream with perineal applicator 1 appl WA BID-QID PRN (Reason: hemorrhoids) 30 Days Qty: 30 0RF cyanocobalamin (vitamin B-12) 500 mcg tablet 500 mcg PO DAILY ketoconazole 2 % shampoo topical 2XW thiamine HCl (vitamin B1) 100 mg tablet 100 mg PO DAILY 90 Days Qty: 90 1RF lisinopril 10 mg tablet 10 mg PO DAILY 90 Days Qty: 90 1RF (DME) blood-glucose meter [FreeStyle Lite Meter] Kit See Rx Instructions .Route Qty: 1 0RF Rx Instructions: As directed (DME) FreeStyle Lite Strips Strip See Rx Instructions .Route Qty: 100 3RF Rx Instructions: Use 1 test strip once a day (DME) lancets [FreeStyle Lancets] 28 gauge misc See Rx Instructions .Route Qty: 100 3RF Rx Instructions: As directed sumatriptan succinate 50 mg tablet 50 mg PO Q2-4H PRN (Reason: migraine headache) 30 Days Qty: 9 2RF Rx Instructions: do not exceed 4 doses per 24 hrs norethindrone ac-eth estradiol [Jesus .08/12 (21)] 1.5-30 mg-mcg tablet 1 tab PO DAILY [id number] [id number] mg capsule 1 cap PO Q4H PRN (Reason: headache) fluocinolone and shower cap 0.01 % oil topical PRN omeprazole 40 mg capsule,delayed release(DR/EC) 40 mg PO BID PRN hydrocortisone 2.5 % ointment topical PRN Referrals: Hood Marc MD [Physician, General Surgery] Print Language: Amharic
[2024-12-08] MEDS: Lidocaine HCl Viscous 2 % 15 ML SOLUTION MUCOUS MEM (14:01)
[2024-12-08 14:23] VITALS: BP 111/65; PULSE 74; RESP 20; TEMP 36.9; O2SAT 98
[2024-12-08 14:35] LABS: MANUAL DIFF FLAG NO
[2024-12-08 14:38] LABS: Hematocrit 42.7 % (37.0-47.0); Hemoglobin 14.5 g/dl (12.0-16.0); Imm Gran Abs Auto 0.02 X10*3/uL (0.00-0.03); Imm Gran Pct Auto 0.3 % (0.0-0.4); Lymphocytes Absolute Auto 2.2 X10*3/uL (1.2-4.9); Mean Corpuscular HGB Conc 34.0 g/dl (31.0-35.0); Mean Corpuscular Hemoglobin 30.8 pg (27.0-33.0); Mean Corpuscular Volume 90.7 fL (80.0-98.0); NRBC Abs Auto 0.000 X10*3/uL (0.0-0.012); NRBC Pct Auto 0.0 /100WBC (0.0-0.2); Platelet Count 343 X10*3/uL (160-400); Red Blood Count 4.71 X10*6/uL (4.20-5.50); White Blood Count 7.6 X10*3/uL (4.8-10.8)
[2024-12-08 14:39] LABS: Appearance Urine Clear; Glucose Urine UA Negative (Negative); PH 5.5 (5.0-9.0); Specific Gravity - Urine <= 1.005 (1.005-1.025); UMIC TRIGGER UACC YES
[2024-12-08 14:40] LABS: UPreg QC Valid YES
[2024-12-08 14:51] LABS: Alanine Aminotransferase 15 U/L (0-31); Albumin Level 4.0 g/dL (3.5-5.0); Alkaline Phosphatase 48 U/L (39-117); Anion Gap 13 (12-20); Aspartate Amino Transferase 19 U/L (5-31); Blood Urea Nitrogen 6 mg/dL (9-16); Calcium 8.7 mg/dL (8.4-10.2); Carbon Dioxide 23 mmol/L (22-29); Chloride 109 mmol/L (96-108); Creatinine Clr Calc Pharmacy 132.3; Estimated Glomerular Filt Rate > 60; Lipase 15 U/L (8-78); Potassium 3.7 mmol/L (3.3-5.1); Sodium 141 mmol/L (135-145); Total Protein 6.5 g/dL (6.5-8.0)
[2024-12-08 15:38] VITALS: BP 111/65; PULSE 74; RESP 20; TEMP 36.9; O2SAT 98
== END 2024-12-08 15:38 | disposition home or self-care (01) ==
PROVIDERS: Emergency Provider Emergency Medicine; PCP Internal Medicine
DX: K64.9 Unspecified hemorrhoids (principal); K62.89 Other specified diseases of anus and rectum; E11.9 Type 2 diabetes mellitus without complications; I10 Essential (primary) hypertension; Z79.84 Long term (current) use of oral hypoglycemic drugs; Z79.899 Other long term (current) drug therapy
CPT/HCPCS: 36415; 80048; 80076; 81001; 81025; 83690; 85025; 99283

== ENCOUNTER 2024-12-10 13:54 | Emergency (ER) | payer OTHER, SELFPAY ==
[2024-12-10 14:00] VITALS: BP 115/72; PULSE 82; RESP 16; TEMP 36.7; O2SAT 99; BMI 35.9
--- NOTE | 2024-12-10 14:02 | ED.GENADULT ---
HPI - General Adult General Chief complaint: General Medical Stated complaint: hemorrhoid's pain Time Seen by Provider: 12/10/24 16:52 Source: patient and family Mode of arrival: ambulatory Limitations: no limitations History of Present Illness ED Provider: Camila Hein APRN HPI narrative: 29-year-old female with a history of hemorrhoids presents the ER with complaints of rectal pain despite using topical lidocaine, rxeh-nyi-znmimfi hemorrhoid cream and performing Sitz baths at home. Patient reports she has an appointment on Thursday with both General surgery and Gastroenterology. She is here due to pain. She is not taking any babi-gxr-tlgsnah stool softeners or laxatives. She denies any abdominal pain, vomiting, rectal bleeding, fevers, chills. Related Data Home Medications ?Medication ?Instructions ?Recorded ?Confirmed cyanocobalamin (vitamin B-12) 500 500 mcg PO DAILY 03/29/24 12/05/24 mcg tablet butalbital 50 mg-acetaminophen 325 1 cap PO Q4H PRN headache 09/08/24 12/05/24 mg-caffeine 40 mg-codeine 30 mg cap fluocinolone 0.01 % scalp oil and topical PRN 09/08/24 12/05/24 shower cap hydrocortisone 2.5 % topical topical PRN 09/08/24 12/05/24 ointment norethindrone acetate 1.5 1 tab PO DAILY 09/08/24 12/05/24 mg-ethinyl estradiol 30 mcg tablet (Jesus) omeprazole 40 mg capsule,delayed 40 mg PO BID PRN 09/08/24 12/05/24 release ketoconazole 2 % shampoo topical 2XW 12/05/24 12/05/24 Previous Rx's ?Medication ?Instructions ?Recorded clotrimazole-betamethasone 1 1 appl topical BID 2 weeks #15 04/21/23 %-0.05 % topical cream grams thiamine HCl (vitamin B1) 100 mg 100 mg PO DAILY 90 days #90 tabs 05/01/23 tablet metformin 850 mg tablet 850 mg PO BID 90 days #180 tabs 06/20/24 blood sugar diagnostic (FreeStyle #100 ea 08/25/24 Lite Strips) blood-glucose meter (FreeStyle #1 ea 08/25/24 Lite Meter kit) lancets 28 gauge (FreeStyle #100 ea 08/25/24 Lancets) lisinopril 10 mg tablet 10 mg PO DAILY 90 days #90 tabs 08/25/24 sumatriptan succinate 50 mg tablet 50 mg PO Q2-4H PRN migraine 08/25/24 headache 30 days #9 tabs Ventolin HFA 90 mcg/actuation 1 puff inhalation QID 30 days #18 09/13/24 aerosol inhaler (albuterol sulfate) grams alcohol swabs (Alcohol Prep Pads) 1 pad topical .once a day 90 days 10/06/24 #100 ea atorvastatin 10 mg tablet 10 mg PO BEDTIME 90 days #90 tabs 10/23/24 cholecalciferol (vitamin D3) 25 25 mcg PO DAILY 90 days #90 caps 10/23/24 mcg (1,000 unit) capsule hydroxyzine HCl 25 mg tablet 25 mg PO BEDTIME 90 days #90 tabs 11/16/24 hydrocortisone 2.5 % topical cream 1 appl FL BID-QID PRN hemorrhoids 12/07/24 with perineal applicator 30 days #30 grams lidocaine HCl 2 % mucosal solution 1 appl mucous membrane QID PRN 12/08/24 (Lidocaine Viscous) pain #100 mL hydrocortisone 2.5 % topical cream 1 appl FL DAILY PRN hemorrhoids 12/10/24 with perineal applicator #30 grams (Anusol-HC) Allergies Allergy/AdvReac Type Severity Reaction Status Date / Time No Known Allergies Allergy Verified 12/10/24 14:04 Review of Systems Review of Systems: Yes all other systems are reviewed and are negative Constitutional: Constitutional: Reports no additional constitutional complaints, Denies body ache(s), Denies chills, Denies fever(s), Denies headache(s) and Denies weakness Eyes: Eyes: Reports no additional eye complaints and Denies change in vision ENT: Reports system reviewed and no additional complaints, except as documented, Denies dizziness, Denies headache(s), Denies nasal congestion, Denies nasal discharge and Denies neck pain Cardiovascular: Cardiovascular: Reports no additional cardiovascular complaints, Denies chest pain, Denies leg edema and Denies dyspnea Respiratory: Respiratory: Reports no additional respiratory complaints, Denies cough and Denies dyspnea Gastrointestinal: Gastrointestinal: Reports no additional gastrointestinal complaints, Denies abdominal pain, Denies diarrhea, Denies nausea and Denies vomiting Genitourinary: Genitourinary: Reports no additional female genitourinary complaints and Denies urinary incontinence Musculoskeletal: Musculoskeletal: Reports no additional musculoskeletal complaints, Denies back pain, Denies arthralgias, Denies joint swelling, Denies neck pain, Denies numbness and Denies tingling Integumentary/Breasts: Skin/Breast: Reports system reviewed and no additional complaints, except as docu and Denies rash Neurologic: Reports system reviewed and no additional complaints, except as documented, Denies Abnormal speech present, Denies dizziness, Denies headache(s), Denies numbness, Denies tingling and Denies weakness PMFSH Past Medical History Attestation statement: The following information was validated with the patient. Source: old records reviewed and nursing notes reviewed Medical History Severe obesity (BMI 35.0-39.9) with comorbidity Hyperlipidemia LDL goal <70 Morbid obesity Mild asthma Surgical History History of History of colonoscopy History of wisdom tooth extraction Family History Family History Mother Diabetes Asthma Hypertension Father Diabetes Maternal Grandfather Colon cancer Maternal Aunt Colon cancer Social History Social History Housing: Apartment Alcohol intake: never Patient Tobacco Use Status: Never used Tobacco e-Cigarette/Vaping Use: Currently Using Second Hand Smoke Exposure: No Advance Directives: No Advance Directives Information Provided: Yes service: No Current occupational status: unemployed Cognitive needs: No Hearing needs: No Vision needs: Yes Physical Exam ED Vital Signs: Vital Signs - 24 hr 12/10/24 14:00 12/10/24 17:29 Temperature 98.1 F 98.1 F Pulse Rate 82 82 Respiratory Rate 16 16 Blood Pressure 115/72 115/72 Pulse Oximetry 99 99 Oxygen Delivery Method Room Air Room Air BMI result Body Mass Index 35.9 Const General: cooperative, healthy appearing, comfortable and no acute distress Orientation/consciousness: patient oriented x3 Limitations: no limitations HENMT Head: Yes normal to inspection Ears: hearing grossly normal bilaterally General nose exam: Normal external nose present Face and sinus: Yes normal facial exam Mouth: Normal oral and palatal mucosa present Throat: Yes posterior oropharynx normal Eyes General: appearance normal, both eyes and all related structures Pupils: Equal, round and reactive pupils present Neck Neck: Yes normal visual inspection Chest Chest palpation & inspection: normal inspection of the chest Resp Effort & Inspection: normal respiratory effort Auscultation: clear to auscultation bilaterally Cardio Rate: regular rate Rhythm: regular rhythm Peripheral pulses: Peripheral pulses 2+ throughout GI Inspection: Yes normal to inspection Palpation (GI): Soft to palpation and nontender Auscultation: normal bowel sounds Back/Spine/Pelvis Thoracic/Lumbar Spine: thoracic and lumbar spine normal to inspection Skin General skin exam: no rashes or lesions noted Neuro General: patient oriented x3, no focal motor deficits and normal sensation to monofilament Cranial nerves: Yes Equal, round and reactive pupils present Cognition (Neuro): normal cognition Speech: No Abnormal speech present Gait exam (Neuro): Normal gait present Motor exam (neuro): 5/5 motor strength present throughout Extrem General: Yes normal to inspection Course Course Course Narrative: This is a rapid medical exam performed by Kevin Olivares NP: Additional HPI, ROS, PE not included below will be deferred to primary provider. Patient is a 29y/o F presenting with complaint of hemorrhoid pain. Seen here Th for same. Medications, sitz bath not helping. Area not visualized in triage due to privacy concerns. Appts with gen surg and GI on Thursday. Medical Decision Making Medical Decision Making [facility] Narrative: 29-year-old female with a history of hemorrhoids presents the ER with complaints of rectal pain despite using topical lidocaine, afjp-lbi-nnolcdw hemorrhoid cream and performing Sitz baths at home. Patient reports she has an appointment on Thursday with both General surgery and Gastroenterology. She is here due to pain. She is not taking any rmuy-reg-ukuxmiq stool softeners or laxatives. She denies any abdominal pain, vomiting, rectal bleeding, fevers, chills. Abdomen is soft and nontender. I do not appreciate any external hemorrhoids on exam. I will prescribe Anusol. Recommend stool softeners and MiraLax as needed and follow up outpatient with GI and surgery as scheduled Differential Diagnosis Differential Diagnoses: The differential diagnosis associated with the presentation includes Hemorrhoids Admission/Observation Consideration of admission/observation: Escalation of care including admission/observation considered Tests considered The following testing was considered but not selected: No focal abdominal pain to suggest need for CT imaging Discharge Plan Discharge Clinical Impression: Hemorrhoids Patient Disposition: Home, Self-Care Instructions: Hemorrhoids (ED) Additional Instructions: You may continue your other medications Avoid constipation and take MiraLax and Colace daily Keep your appointment with your bomb technician and surgeon on Thursday Prescriptions: New hydrocortisone [Anusol-HC] 2.5 % cream with perineal applicator 1 appl FL DAILY PRN (Reason: hemorrhoids) Qty: 30 0RF No Action clotrimazole-betamethasone 1-0.05 % cream 1 appl topical BID 14 Days Qty: 15 1RF metformin 850 mg tablet 850 mg PO BID 90 Days Qty: 180 1RF albuterol sulfate [Ventolin HFA] 90 mcg/actuation HFA aerosol inhaler 1 puff inhalation QID 30 Days Qty: 18 2RF alcohol swabs [Alcohol Prep Pads] Pads, Medicated 1 pad topical .once a day 90 Days Qty: 100 3RF cholecalciferol (vitamin D3) 25 mcg (1,000 unit) capsule 25 mcg PO DAILY 90 Days Qty: 90 1RF atorvastatin 10 mg tablet 10 mg PO BEDTIME 90 Days Qty: 90 1RF hydroxyzine HCl 25 mg tablet 25 mg PO BEDTIME 90 Days Qty: 90 0RF hydrocortisone 2.5 % cream with perineal applicator 1 appl FL BID-QID PRN (Reason: hemorrhoids) 30 Days Qty: 30 0RF lidocaine HCl [Lidocaine Viscous] 2 % solution 1 appl mucous membrane QID PRN (Reason: pain) Qty: 100 0RF Rx Instructions: Apply quarter-inch to the painful hemorrhoid every 6 hours if needed cyanocobalamin (vitamin B-12) 500 mcg tablet 500 mcg PO DAILY ketoconazole 2 % shampoo topical 2XW thiamine HCl (vitamin B1) 100 mg tablet 100 mg PO DAILY 90 Days Qty: 90 1RF lisinopril 10 mg tablet 10 mg PO DAILY 90 Days Qty: 90 1RF (DME) blood-glucose meter [FreeStyle Lite Meter] Kit See Rx Instructions .Route Qty: 1 0RF Rx Instructions: As directed (DME) FreeStyle Lite Strips Strip See Rx Instructions .Route Qty: 100 3RF Rx Instructions: Use 1 test strip once a day (DME) lancets [FreeStyle Lancets] 28 gauge misc See Rx Instructions .Route Qty: 100 3RF Rx Instructions: As directed sumatriptan succinate 50 mg tablet 50 mg PO Q2-4H PRN (Reason: migraine headache) 30 Days Qty: 9 2RF Rx Instructions: do not exceed 4 doses per 24 hrs norethindrone ac-eth estradiol [Jesus 1.08/12 (21)] 1.5-30 mg-mcg tablet 1 tab PO DAILY kswepwukjq-hiyofkgrzc-fcv-cod 11-731-19-30 mg capsule 1 cap PO Q4H PRN (Reason: headache) fluocinolone and shower cap 0.01 % oil topical PRN omeprazole 40 mg capsule,delayed release(DR/EC) 40 mg PO BID PRN hydrocortisone 2.5 % ointment topical PRN Referrals: Haydee Sanchez MD [Primary Care Provider, Internal Medicine] Interventions: ED Discharge Assessment Last Done: 12/10/24 17:29 Discharge Date/Time: 12/10/24 17:32 Print Language: [place]
[2024-12-10 17:29] VITALS: BP 115/72; PULSE 82; RESP 16; TEMP 36.7; O2SAT 99
== END 2024-12-10 17:32 | disposition home or self-care (01) ==
PROVIDERS: Emergency Provider Emergency Medicine; PCP Internal Medicine
DX: K64.9 Unspecified hemorrhoids (principal); Z79.899 Other long term (current) drug therapy; Z87.19 Personal history of other diseases of the digestive system
CPT/HCPCS: 99282; 99283

== ENCOUNTER 2024-12-12 11:48 | Outpatient (AMB) | payer OTHER, SELFPAY ==
[2024-12-12 11:55] VITALS: BMI 36.2
--- NOTE | 2024-12-12 11:55 | MHC.OFFVIS ---
Vital Signs 12/12/24 11:55 Height 5 ft 1 in Weight 191 lb 12.835 oz BMI 36.2 Intake Visit Reasons: Hemorrhoids was JM pt Intake Note: Patient in follow up for hemorrhoids pain. CC: Patient seen in ER with c/o hemorrhoids pain. She states she can't stand the pain and the medications are not helping with pain. She reports hx of diverticulosis, diabetes, and proteinuria. Stone Lathe Operator Required: No Stone Lathe Operator Services: Stone Lathe Operator Offered & Declined Allergies No Known Allergies Allergy (Verified 12/12/24 12:05) HPI Comments Details: 29 y.o F with PMH of who is here for rectal pain. Pt reports having significant rectal pain with occasional bleeding over the last couple of weeks. In the last 4-5 days, the pain has worsened, to the point that she is unable to even sleep due to the pain. She has tried several tdpg-apb-pqdbydp treatments including phenylephrine cream and witch An wipes without any relief. Has also been seen in the emergency room twice for this. Reports pain while defecation now, even if the stool is not hard. Was prescribed topical lidocaine and hydrocortisone cream from the emergency room, which the patient just started yesterday. [facility] Medical History Severe obesity (BMI 35.0-39.9) with comorbidity Hyperlipidemia LDL goal <70 Morbid obesity Mild asthma Surgical History History of History of colonoscopy History of wisdom tooth extraction Family History Mother Diabetes Asthma Hypertension Father Diabetes Maternal Grandfather Colon cancer Maternal Aunt Colon cancer Social History Housing: Apartment Alcohol intake: never Patient Tobacco Use Status: Never used Tobacco e-Cigarette/Vaping Use: Currently Using (sometimes) Second Hand Smoke Exposure: No service: No Current occupational status: unemployed Cognitive needs: No Hearing needs: No Vision needs: Yes Review of Systems Const All systems reviewed & are unremarkable except as noted in HPI and below Physical Exam Exam Exam: No apparent distress Nonicteric Abdomen soft, nondistended rectal: luis quintanilla MA present as rn emergency room. Ext hemorrhoids, no anal tag, severe pain on digital exam and exam therefore aborted. Alert and oriented x3, normal gait Vital Signs: BMI result Body Mass Index 36.2 Assessment & Plan Assessment & Plan (1) Anal fissure: Code(s): K60.2 - Anal fissure, unspecified Category: Medical (2) Hemorrhoids: Code(s): K64.9 - Unspecified hemorrhoids Category: Medical (3) Constipation: Code(s): K59.00 - Constipation, unspecified Category: Medical Plan Based on exam findings today, unable to rule out anal fissure. Will favor therapy with topical nitroglycerin. Patient already has topical lidocaine, which she was encouraged to continue to apply. In addition, we also reviewed measures to reduce straining and improve defecation mechanics. Plan: -increase hydration, fiber intake -take MiraLax and senna daily to avoid constipation and straining -use a step stool to elevate legs while having a bowel movement -topical nitroglycerin 0.4% b.i.d. x 4 weeks -continue lidocaine 2% topical solution t.i.d. x 4 weeks -patient has already been referred to surgery from the emergency room for further evaluation Follow-up 8 weeks Medications: New nitroglycerin 0.4%(w/w) 1 inch [place] DAILY 30 grams 0RF 30 days polyethylene glycol 3350 (Miralax) 17 grams PO DAILY 510 grams 0RF 30 days sennosides (senna) 8.6 mg PO DAILY 90 tabs 0RF Patient Instructions: - we were not able to complete the rectal exam today but it seems you may have an anal fissure. - we recommend using lidocaine 3-4 times a day and nitroglycerin twice a day x 4 weeks. (nitroglycerin MAY cause headaches) - Cont sitz baths, elevate your legs while having a BM by using a step-stool. - Avoid constipation and straining - Take miralax and senna to alleviate constipation - Avoid aggressively wiping to avoid further irritation. You may use dominique bottle to clean with water. Coding Level of Care Code New Pt Level 4 (67372) Complex EM visit Add On G2211 Diagnoses Anal fissure K60.2 Hemorrhoids K64.9 Constipation K59.00
== END 2024-12-12 12:36 | disposition home or self-care (01) ==
PROVIDERS: PCP Internal Medicine; Visit Provider Internal Medicine
DX: K60.2 Anal fissure, unspecified (principal); K64.9 Unspecified hemorrhoids; K59.00 Constipation, unspecified
CPT/HCPCS: 99204

== ENCOUNTER → 2024-12-12 11:48 | Outpatient (BNVA) | payer OTHER, SELFPAY | PROVIDERS: PCP Internal Medicine; Visit Provider Internal Medicine | DX: K60.2 Anal fissure, unspecified (principal); K64.9 Unspecified hemorrhoids; K59.00 Constipation, unspecified | CPT/HCPCS: 99202 ==

== ENCOUNTER 2024-12-14 08:29 | Outpatient (AMB) | payer OTHER, SELFPAY ==
--- NOTE | 2024-12-14 08:30 | MHC.OFFVIS ---
Vital Signs 12/14/24 08:31 Height 5 ft 1 in Weight 191 lb 12.835 oz BMI 36.2 Intake Visit Reasons: painful hemorrhoids, diverticulitis Intake Note: This patient presents for an assessment for painful hemorrhoids, diverticulitis. Pt c/o; reports her pain is more tolerable, reports rectal bleeding has subsided, reports she uses Senna, reports several years ago she had a colonoscopy in [place] which they removed a polyp and she was advised she has diverticulitis. Walking Dragline Operator Required: No Accompanied by: Self / Same As Patient Allergies No Known Allergies Allergy (Verified 12/14/24 08:39) Medication List - Last Reconciled 12/14/24 by Bar House MD alcohol swabs (Alcohol Prep Pads) 1 pad topical .once a day 90 days atorvastatin 10 mg PO BEDTIME 90 days blood sugar diagnostic (FreeStyle Lite Strips) Use 1 test strip once a day blood-glucose meter (FreeStyle Lite Meter kit) As directed cholecalciferol (vitamin D3) 25 mcg PO DAILY 90 days clotrimazole-betamethasone 1-0.05 % 1 appl topical BID 2 weeks cyanocobalamin (vitamin B-12) 500 mcg PO DAILY fluocinolone and shower cap 0.01 % topical PRN hydrocortisone 2.5% (Anusol-HC) 1 appl PA DAILY PRN hydrocortisone 2.5% 1 appl PA BID-QID PRN 30 days hydrocortisone 2.5% topical PRN hydroxyzine HCl 25 mg PO BEDTIME 90 days ketoconazole 2% topical 2XW lancets (FreeStyle Lancets) As directed lidocaine HCl 2% (Lidocaine Viscous) 1 appl mucous membrane QID PRN lisinopril 10 mg PO DAILY 90 days metformin 850 mg PO BID 90 days nitroglycerin 0.4%(w/w) 1 inch PA DAILY 30 days norethindrone ac-eth estradiol 1.5-30 mg-mcg (Jesus) 1 tab PO DAILY polyethylene glycol 3350 (Miralax) 17 grams PO DAILY 30 days sennosides (senna) 8.6 mg PO DAILY sumatriptan succinate 50 mg PO Q2-4H PRN 30 days Ventolin HFA 90 mcg/actuation (albuterol sulfate) 1 puff inhalation QID 30 days NS HPI HPI painful hemorrhoids, diverticulitis: Details: 29-year-old female referred for painful hemorrhoids. She says she has had some swollen hemorrhoids for about a month. She went to the ER last week because of severe pain. She was given lidocaine cream and her citrix lead told her as well that she had an anal fissure so was also given a prescription for nitroglycerin cream She says she feels much better now. She is able to sit down comfortably. She still has some pain but says that this has as bad as last week She says she used to have a problem with constipation but this has improved with some stool softeners. She has multiple medical problems including morbid obesity, proteinuria, anxiety, fatty liver, GERD, and diabetes. She says she was told she had diverticulitis in [place] in the past. Denies any abdominal pain recently. [facility] Medical History Severe obesity (BMI 35.0-39.9) with comorbidity Hyperlipidemia LDL goal <70 Morbid obesity Mild asthma Surgical History History of History of colonoscopy History of wisdom tooth extraction Family History Mother Diabetes Asthma Hypertension Father Diabetes Maternal Grandfather Colon cancer Maternal Aunt Colon cancer Social History Housing: Apartment Alcohol intake: never Patient Tobacco Use Status: Never used Tobacco e-Cigarette/Vaping Use: Currently Using (sometimes) Second Hand Smoke Exposure: No service: No Current occupational status: unemployed Cognitive needs: No Hearing needs: No Vision needs: Yes Review of Systems Const Denies chills and Denies fever(s) Card Denies chest pain, Denies dyspnea and Reports dyspnea on exertion Resp Denies cough, Denies dyspnea and Reports dyspnea on exertion GI Denies hematochezia and Denies change in bowel habits Denies hematuria Musc Denies back pain and Denies limited range of motion Neuro Denies focal weakness and Denies convulsions Psych Denies depression and Denies mood swings Physical Exam Vital Signs: BMI result Body Mass Index 36.2 Const Other: Morbidly obese General: comfortable and no acute distress Orientation/consciousness: patient oriented x3 Neck Neck: Yes no lymphadenopathy Resp Auscultation: clear to auscultation bilaterally Cardio Rhythm: regular rhythm GI Other: Rectal exam shows small external hemorrhoids, non thrombosed, not swollen currently, small posterior midline anal fissure in the distal anoderm; she was unable to tolerate anoscopy. Digital exam shows mild hypertonicity Palpation (GI): Soft to palpation, nontender and no guarding Neuro General: patient oriented x3 Assessment & Plan Assessment & Plan (1) Anal fissure: Code(s): K60.2 - Anal fissure, unspecified Category: Medical Plan: She describes having severe anal pain last week and went to the ER. She was told she had hemorrhoids and was referred to me Exam actually shows a posterior midline fissure which is the likely cause of her pain. She has he is better now. She was instructed to continue applying nitroglycerin. I emphasized to her the benefits of Colace and Metamucil I will see her again in the office in a month to see how she is doing. She is comfortable with the plan She says she has a history of diverticulitis but she has had no significant abdominal pain for a while now. Coding Level of Care Code New Pt Level 3 (85411) Diagnoses Anal fissure K60.2
[2024-12-14 08:31] VITALS: BMI 36.2
== END 2024-12-14 08:51 | disposition home or self-care (01) ==
LOC: HO.HGS 08:30
PROVIDERS: PCP Internal Medicine; Visit Provider Surgery
DX: K60.2 Anal fissure, unspecified (principal)
CPT/HCPCS: 99203

== ENCOUNTER 2024-12-14 10:39 | Outpatient (REF) | payer OTHER, SELFPAY ==
--- NOTE | 2024-12-14 10:51 | EMG_ITS ---
Chief complaint: Bilateral hand pain, left worse than right Reason for referral: Hand paresthesia Referred by:Danielle Davalos MD Procedure done: Bilateral upper extremities NCS/EMG Description: Bilateral median and lateral sensory and motor studies were performed bilateral median and lateral antecubital brachial and radial sensory studies were performed an EMG needle examination was performed. Nerve conduction studies did not reveal any significant abnormality. Needle examination revealed long duration polyphasic motor unit potential and left lower cervical paraspinals with decreased recruitment and tall long duration potential in deltoid triceps and biceps. Impression: Left mid to lower cervical radiculopathy, probably C6 MTDD
== END 2024-12-14 10:40 | disposition home or self-care (01) ==
LOC: HO.NEURO 10:39
PROVIDERS: PCP Internal Medicine; Visit Provider Internal Medicine
DX: K60.2 Anal fissure, unspecified (principal); R20.2 Paresthesia of skin; K64.4 Residual hemorrhoidal skin tags
CPT/HCPCS: 95886; 95913; 99202

== ENCOUNTER → 2024-12-14 10:51 | Outpatient (BNV) | payer OTHER, SELFPAY | PROVIDERS: PCP Internal Medicine; Visit Provider Psychiatry & Neurology Neurology | DX: M54.12 Radiculopathy, cervical region (principal) | CPT/HCPCS: 95886; 95913 ==

== ENCOUNTER 2024-12-28 09:50 | Outpatient (REF) | payer OTHER, SELFPAY ==
[2024-12-28 11:22] LABS: Alanine Aminotransferase 15 U/L (0-31); Albumin Level 4.0 g/dL (3.5-5.0); Alkaline Phosphatase 45 U/L (39-117); Anion Gap 13 (12-20); Aspartate Amino Transferase 16 U/L (5-31); Blood Urea Nitrogen 8 mg/dL (9-16); Calcium 8.7 mg/dL (8.4-10.2); Carbon Dioxide 23 mmol/L (22-29); Chloride 107 mmol/L (96-108); Cholesterol 142 mg/dL (<200); Estimated Glomerular Filt Rate > 60; HDL Cholesterol 41 mg/dL (>40); Potassium 3.7 mmol/L (3.3-5.1); Sodium 139 mmol/L (135-145); Total Protein 6.6 g/dL (6.5-8.0); Triglycerides 109 mg/dL (<150)
[2024-12-28 11:53] LABS: Folate 7.1 ng/mL (> or = 4.0); Microalbum/Creatinine Ratio Ur 7.4 ug/mg cr (<30); Vitamin B12 292 pg/mL (200-900)
== END 2024-12-28 09:51 | disposition home or self-care (01) ==
LOC: HO.LAB 09:50
PROVIDERS: PCP Internal Medicine; Visit Provider Internal Medicine
DX: E53.8 Deficiency of other specified B group vitamins (principal); E66.01 Morbid (severe) obesity due to excess calories; E55.9 Vitamin D deficiency, unspecified; E78.5 Hyperlipidemia, unspecified; R80.9 Proteinuria, unspecified; Z68.41 Body mass index [BMI] 40.0-44.9, adult
CPT/HCPCS: 36415; 80053; 80061; 82043; 82306; 82570; 82607; 82746

== ENCOUNTER 2025-01-03 09:58 | Outpatient (AMB) | payer OTHER, SELFPAY ==
--- NOTE | 2025-01-03 10:01 | A.OFFPC_ITS ---
Vital Signs 01/03/25 10:02 Height 5 ft 1 in Weight 194 lb 6 oz BMI 36.7 BP 100/80 Blood Pressure Location Lt brachial Position Sitting Pulse 80 Pulse Source Pulse Oximeter Temp 97.3 F Temp Source Temporal Artery Scan Pulse Oximetry (%) 97 Oxygen Delivery Method Room Air Intake Visit Reasons: dm Allergies No Known Allergies Allergy (Verified 01/03/25 10:08) Medication List - Last Reconciled 01/03/25 by Dayron Conn MD alcohol swabs (Alcohol Prep Pads) 1 pad topical .once a day 90 days atorvastatin 10 mg PO BEDTIME 90 days blood sugar diagnostic (FreeStyle Lite Strips) Use 1 test strip once a day blood-glucose meter (for; to (do) CentersStyle Lite Meter kit) As directed blood-glucose sensor ([employer] G7 Sensor device) As directed blood-glucose,professor 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,cont (Dexcom G7 Surgical Consultant) As directed cholecalciferol (vitamin D3) 25 mcg PO DAILY 90 days clotrimazole-betamethasone 1-0.05 % 1 appl topical BID 2 weeks cyanocobalamin (vitamin B-12) 500 mcg PO DAILY fluocinolone and shower cap 0.01 % topical PRN hydrocortisone 2.5% (Anusol-HC) 1 appl IN DAILY PRN hydrocortisone 2.5% 1 appl IN BID-QID PRN 30 days hydrocortisone 2.5% topical PRN hydroxyzine HCl 25 mg PO BEDTIME 90 days ketoconazole 2% topical 2XW lancets (FreeStyle Lancets) As directed lidocaine HCl 2% (Lidocaine Viscous) 1 appl mucous membrane QID PRN lisinopril 10 mg PO DAILY 90 days metformin 850 mg PO BID 90 days nitroglycerin 0.4%(w/w) 1 inch IN DAILY 30 days norethindrone ac-eth estradiol 1.5-30 mg-mcg (Jesus) 1 tab PO DAILY polyethylene glycol 3350 (Miralax) 17 grams PO DAILY 30 days sennosides (senna) 8.6 mg PO DAILY sumatriptan succinate 50 mg PO Q2-4H PRN 30 days Ventolin HFA 90 mcg/actuation (albuterol sulfate) 1 puff inhalation QID 30 days NS Tobacco use date assessed: 01/03/25 Dental Screening Dental Screen Date: 01/03/25 Did you have a dental visit in the last 12 months?: Yes Did you have a dental problem in the last 6 months where you did not have access to dental care?: No Was dental information given to patient?: Patient has dentist [facility] Medical History (Updated 01/03/25 @ 10:25 by Dayron Conn MD) Diabetes mellitus Essential hypertension Severe obesity (BMI 35.0-39.9) with comorbidity Hyperlipidemia LDL goal <70 Morbid obesity Mild asthma Surgical History History of History of colonoscopy History of wisdom tooth extraction Family History Mother Diabetes Asthma Hypertension Father Diabetes Maternal Grandfather Colon cancer Maternal Aunt Colon cancer Social History Housing: Apartment Alcohol intake: never Patient Tobacco Use Status: Never used Tobacco e-Cigarette/Vaping Use: Never Used Second Hand Smoke Exposure: No service: No Current occupational status: unemployed Cognitive needs: No Hearing needs: No Vision needs: Yes Questionnaire PHQ-9 Over the last 2 weeks, how often have you been bothered by any of the following problems? 1. Little interest or pleasure in doing things: several days 2. Feeling down, depressed, or hopeless: more than half the days 3. Trouble falling or staying asleep, or sleeping too much: several days 4. Feeling tired or having little energy: several days 5. Poor appetite or overeating: more than half the days 6. Feeling bad about yourself - or that you are a failure or have let yourself or your family down: several days 7. Trouble concentrating on things, such as reading the newspaper or watching television: more than half the days 8. Moving or speaking so slowly that other people could have noticed. Or the opposite - being so fidgety or restless that you have been moving around a lot more than usual: not at all 9. Thoughts that you would be better off or of hurting yourself in some way: not at all Total score: 10 Depression Screening Interpretation: Positive Depression Screening Follow-up: Existing condition and Follow-up Visit Requested Depression Screening Done: Yes Source: Developed by Drs. Hamzah Iyer, Kemi B.Micky Berg and colleagues, with an educational nolvia from [email or web address]. Thrive Questionnaire Date Thrive assessed: 08/18/24 I am a: Patient What is your living situation today?: I have a steady place to live Within the past 12 months, did the food you bought not last and you didn't have the money to get more?: Never true Within the past 12 months, did you worry whether your food would run out before you got money to buy more?: Never true Do you have trouble paying for medicines?: No Do you have trouble getting transportation to medical appointments?: No Do you have trouble paying your heating and electricity bill?: No Do you have trouble taking care of your child, family member or friend?: I choose not to answer this question Do you have trouble with day-to-day activities such as bathing, preparing meals, shopping, managing finances, etc.?: Yes Are you currently unemployed and looking for a job?: Yes Are you interested in more education?: Yes Please select the resources that you would like help with: Education Currently or been in a relationship where the following occur: No concerns reported THRIVE Score: 0 AUDIT C Alcohol Use Questionnaire (AUDIT-C) 1. How often do you have a drink containing alcohol?: Never Total Score: 0 Score Reviewed/Action Taken: No COCO-7 AMB Questionnaire COCO-7 Date COCO - 7 assessed: 08/25/24 Feeling nervous, anxious, or on edge: 1 = Several days Not being able to stop or control worryin = More than half the days Worrying too much about different things: 0 = Not at all Trouble relaxin = Not at all Being so restless that it is hard to sit still: 0 = Not at all Becoming easily annoyed or irritable: 0 = Not at all Feeling afraid as if something awful might happen: 1 = Several days Total COCO-7 score (0-4 normal; 5-9 mild; 10-14 moderate; 15-21 severe): 4 Source: Developed by Drs. Hamzah Iyer, Micky Webb and colleagues, with an educational nolvia from [email or web address]. Physical exam (Primary Care) Vital Signs: Last Vital Signs Temp 97.3 F 01/03/25 10:02 Pulse 80 01/03/25 10:02 BP 100/80 01/03/25 10:02 Pulse Ox 97 01/03/25 10:02 Oxygen Delivery Method Room Air 01/03/25 10:02 BMI result Body Mass Index 36.7 Tobacco/Smoking Status: Tobacco use Status Tobacco use date assessed 01/03/25 01/03/25 10:11 Patient Tobacco Use Status Never used Tobacco 01/03/25 10:06 e-Cigarette/Vaping Use Never Used 01/03/25 10:11 PHQ-9: PHQ-9 Score PHQ-9: Total score 10 01/03/25 10:35 Depression Screening Interpretation: Positive Depression Screening Follow-up: Existing condition and Follow-up Visit Requested Thrive Assessment: Date of Thrive Assessment Date Thrive assessed 08/18/24 01/03/25 10:06 Currently or been in a relationship where the following occur: No concerns reported Const General: alert; No acute distress Eyes Conjunctivae: conjunctivae normal Resp Auscultation: clear to auscultation bilaterally Cardio Rate: regular rate Rhythm: regular rhythm GI Inspection: Yes normal to inspection Extrem General: Yes normal to inspection and No edema Results AMB Hemoglobin A1c AMB Hemoglobin A1c 5.7 % Last Edit by Iona Adame CMA on 01/03/25 10:14 Results Reviewed Results Reviewed: Laboratory Last Values Hgb A1c (Clinic) 5.7 % (4.0-6.0) 01/03/25 10:12 Coding Level of Care Code Est Pt Level 4 (43653) Complex EM visit Add On G2211 Diagnoses Type 2 diabetes mellitus with hyperglycemia E11.65 Essential hypertension I10 Hyperlipidemia LDL goal <70 E78.5 Obesity (BMI 30-39.9) E66.9 Gastroesophageal reflux disease, unspecified whether esophagitis present K21.9 Esophagitis presence: esophagitis presence not specified NAFLD (nonalcoholic fatty liver disease) K76.0 Anal fissure K60.2 Cervical radiculopathy M54.12 Seborrheic dermatitis L21.9 Tinea corporis B35.4 Assessment & Plan Assessment & Plan (1) Type 2 diabetes mellitus with hyperglycemia: Code(s): E11.65 - Type 2 diabetes mellitus with hyperglycemia Category: Medical Plan: Decrease the amount of carbohydrate intake, pasta, bread, rice and potatoes are all sugar and that is aside from all the sweet stuff, remember that fruits are good but they are Sweet also. Hemoglobin A1c goal of less than 6.5. Patient is on metformin 850 mg twice a day (2) Essential hypertension: Code(s): I10 - Essential (primary) hypertension Category: Medical Plan: Continue with blood pressure medication. Decrease salt intake and exercise patient is on lisinopril 10 mg once a day and discussed about and lisinopril (3) Hyperlipidemia LDL goal <70: Code(s): E78.5 - Hyperlipidemia, unspecified Category: Medical Plan: Avoid fried foods, chicken skin, eggs, butter margarine, pastries and meat. Be it pork or beef they have a lot of cholesterol LDL goal of less than 100 and triglyceride of less than 150 on atorvastatin 10 mg at bedtime (4) Obesity (BMI 30-39.9): Code(s): E66.9 - Obesity, unspecified Category: Medical Plan: Diet and exercise (5) GERD (gastroesophageal reflux disease): Comment: PPI, improved with dietary modification -following with weight management Code(s): K21.9 - Gastro-esophageal reflux disease without esophagitis Category: Medical Qualifiers: Esophagitis presence: esophagitis presence not specified Qualified Code(s): K21.9 - Gastro-esophageal reflux disease without esophagitis Plan: Avoid the foods that causes that usually spicy foods, tomato products, juices, coffee, soda and foods that your sensitive to. After eating do not lie down, allow 3-4 hours before in lie down. And keep the head of bed above 30 degrees to avoid the acid from going up. (6) NAFLD (nonalcoholic fatty liver disease): Comment: Reviewed liver ultrasound most likely NAFLD Code(s): K76.0 - Fatty (change of) liver, not elsewhere classified Category: Medical Plan: Low-fat diet and exercise (7) Anal fissure: Code(s): K60.2 - Anal fissure, unspecified Category: Medical Plan: Patient has seen the Gastroenterology and the surgeon and has placed in nitroglycerin and advised to avoid being constipated (8) Cervical radiculopathy: Comment: December 2024Left mid to lower cervical radiculopathy, probably C6 Code(s): M54.12 - Radiculopathy, cervical region Category: Medical Plan: Nerve conduction test done December 2024 (9) Seborrheic dermatitis: Code(s): L21.9 - Seborrheic dermatitis, unspecified Category: Medical (10) Tinea corporis: Code(s): B35.4 - Tinea corporis Category: Medical Plan History of Present Illness The patient is a 29-year-old female presenting for management of multiple chronic conditions including diabetes mellitus, hypertension, and hypercholesterolemia. The patient has a history of diabetes mellitus, with a recent hemoglobin A1c of 5.7, indicating good control. She is currently on metformin 850 mg twice a day and has been advised to maintain a hemoglobin A1c goal of less than 6.5. The patient is also managing hypertension with lisinopril 10 mg once a day. There was a discussion about the implications of lisinopril use during , emphasizing the need to avoid it if planning to conceive. For hypercholesterolemia, the patient is on atorvastatin 10 mg at bedtime, with a current LDL cholesterol level of 80 mg/dL, which is below the target of less than 100 mg/dL. Diet and exercise have been recommended to help manage cholesterol levels. The patient has a history of gastroesophageal reflux disease (GERD) and has been advised to follow a no-fat diet and exercise regimen. She has previously consulted with gastroenterology and a surgeon regarding this condition. The patient has been diagnosed with cervical radiculopathy, likely at the C6 level, following a nerve conduction test in December 2024. She reports hand numbness and has been referred for an MRI to further evaluate the condition. The patient has a history of anal fissures and has been advised to use nitroglycerin, increase hydration, and fiber intake to manage the condition. She has also been advised to avoid constipation and has been using Metamucil and Colace. The patient has microalbuminuria and is being managed with lisinopril, which is beneficial for this condition. Regular monitoring of kidney function and blood pressure is emphasized to prevent progression. The patient has a vitamin B12 deficiency, which is being monitored. Health Maintenance - Advised to maintain a hemoglobin A1c goal of less than 6.5 for diabetes raphael kelley. - Recommended diet and exercise for cholesterol management. - Advised to follow a no-fat diet and exercise regimen for GERD management. - Emphasized regular monitoring of kidney function and blood pressure for microalbuminuria management. Social History - Weight management: Patient has reduced weight from 235 pounds to 194 pounds, with a target weight of 130 pounds. - Exercise: Engages in regular physical activity as part of health management. - Nutrition: Following dietary modifications to manage chronic conditions. Review of Systems - Neurological: Reports hand numbness, likely due to cervical radiculopathy. - Gastrointestinal: Reports history of anal fissures, currently managed with dietary modifications. - Endocrine: Reports history of diabetes mellitus, currently well-controlled. - Cardiovascular: Denies chest pain or palpitations. Physical Exam Results - Labs: Hemoglobin A1c at 5.7, LDL cholesterol at 80 mg/dL, mildly low vitamin B12. - Tests: Nerve conduction test indicating cervical radiculopathy at C6. Plan Patient was informed and verbally consented to the use of an ambient scribe for clinic note documentation during this visit. 1. Diabetes Mellitus The patient is advised to maintain a hemoglobin A1c goal of less than 6.5 and continue metformin 850 mg twice a day. Regular monitoring of blood glucose levels is recommended, and dietary modifications should be continued to support glycemic control. 2. Hypertension The patient is currently on lisinopril 10 mg once a day for hypertension management. It is important to avoid lisinopril if planning due to potential risks. 3. Hypercholesterolemia The patient is on atorvastatin 10 mg at bedtime, with a target LDL cholesterol level of less than 100 mg/dL. Diet and exercise are recommended to further manage cholesterol levels. 4. Gastroesophageal Reflux Disease (Gerd) The patient is advised to follow a no-fat diet and engage in regular exercise to manage GERD symptoms. Consultations with gastroenterology and a surgeon have been conducted previously. 5. Cervical Radiculopathy The patient has been diagnosed with cervical radiculopathy, likely at the C6 level, and an MRI has been ordered for further evaluation. 6. Anal Fissure The patient is advised to use nitroglycerin and increase hydration and fiber intake to manage anal fissures. Avoiding constipation is emphasized, with the use of Metamucil and Colace as needed. 7. Microalbuminuria The patient is managed with lisinopril, which is beneficial for microalbuminuria, and regular monitoring of kidney function is advised. 8. Vitamin B12 Deficiency The patient has a vitamin B12 deficiency, which is being monitored and managed as needed. Discussion Notes During the visit, I discussed the importance of maintaining a hemoglobin A1c goal of less than 6.5 for diabetes management and the continuation of metformin therapy. We reviewed the implications of lisinopril use during and emphasized the need for dietary and lifestyle modifications to manage hypercholesterolemia and GERD. I also explained the need for an MRI to evaluate cervical radiculopathy and the management plan for anal fissures, including the use of nitroglycerin and dietary adjustments. Patient Instructions - Continue taking metformin 850 mg twice a day for diabetes management. - Maintain a hemoglobin A1c goal of less than 6.5. - Avoid lisinopril if planning . - Follow a no-fat diet and engage in regular exercise for GERD management. - Use nitroglycerin and increase hydration and fiber intake to manage anal fissures. - Regularly monitor blood glucose levels and kidney function. 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
[2025-01-03 10:02] VITALS: BP 100/80; PULSE 80; TEMP 36.3; O2SAT 97; BMI 36.7
== END 2025-01-03 10:40 | disposition home or self-care (01) ==
LOC: HO.HMCH 09:59
PROVIDERS: PCP Internal Medicine; Visit Provider Internal Medicine
DX: E11.65 Type 2 diabetes mellitus with hyperglycemia (principal); I10 Essential (primary) hypertension; E66.9 Obesity, unspecified; Z68.36 Body mass index [BMI] 36.0-36.9, adult; E78.5 Hyperlipidemia, unspecified; K21.9 Gastro-esophageal reflux disease without esophagitis; K76.0 Fatty (change of) liver, not elsewhere classified; K60.2 Anal fissure, unspecified; M54.12 Radiculopathy, cervical region; L21.9 Seborrheic dermatitis, unspecified; B35.4 Tinea corporis

== ENCOUNTER → 2025-01-03 09:58 | Outpatient (BNVA) | payer OTHER, SELFPAY | PROVIDERS: PCP Internal Medicine; Visit Provider Internal Medicine | DX: E11.65 Type 2 diabetes mellitus with hyperglycemia (principal); I10 Essential (primary) hypertension; E66.9 Obesity, unspecified; K21.9 Gastro-esophageal reflux disease without esophagitis; K76.0 Fatty (change of) liver, not elsewhere classified; K60.2 Anal fissure, unspecified; M54.12 Radiculopathy, cervical region; L21.9 Seborrheic dermatitis, unspecified; B35.4 Tinea corporis; E78.00 Pure hypercholesterolemia, unspecified; R80.9 Proteinuria, unspecified; E53.8 Deficiency of other specified B group vitamins | CPT/HCPCS: 83036; 99212 ==

== ENCOUNTER 2025-01-11 09:57 | Outpatient (AMB) | payer OTHER, SELFPAY ==
--- NOTE | 2025-01-11 10:13 | A.OFFVIS_ITS ---
VS Expanded 01/11/25 10:17 Height 5 ft 1 in Weight 190 lb 7.67 oz BMI 36.0 Intake Visit Reasons: T2DM Allergies No Known Allergies Allergy (Verified 01/03/25 10:08) Nutrition Presentation Details: Pt presents for MNT f/u for t2dm Pt reports doing well, getting used to the meal plan and routine. Pt reports blood glucose within normal limits 80s-100s fasting or after meals B: yogurt eggs and hebrew toast , water L: banana and peanut butter/1 slice whole wheat dinner: name mixed vegetables and 1 egg or rice/beans/salad and avocado Admits to lessening physical activity currently keeping sedentary BS Monitoring Most Recent Diabetes Results: Microalb/Creat Ratio, (<30) 7.4 ug/mg cr 12/28/24 Cholesterol, (<200) 142 mg/dL 12/28/24 HDL Cholesterol, (>40) 41 mg/dL 12/28/24 Triglycerides, (<150) 109 mg/dL 12/28/24 Creatinine, (0.5-1.4) 0.62 mg/dL 12/28/24 BUN, (9-16) 8 mg/dL L 12/28/24 Sodium, (135-145) 139 mmol/L 12/28/24 Potassium, (3.3-5.1) 3.7 mmol/L 12/28/24 Chloride, (96-108) 107 mmol/L 12/28/24 Carbon Dioxide, (22-29) 23 mmol/L 12/28/24 Calcium, (8.4-10.2) 8.7 mg/dL 12/28/24 AST, (5-31) 16 U/L 12/28/24 ALT, (0-31) 15 U/L 12/28/24 Total Protein, (6.5-8.0) 6.6 g/dL 12/28/24 Albumin, (3.5-5.0) 4.0 g/dL 12/28/24 BNO-Xoaqwox-Tt.Jeor Equation Height: 5 ft 1 in Weight: 190 lb Resting Metabolic Rate: 1520.74 Calculated Activity Level: Sedentary Calories Needed to Maintain Weight: 1824.89 [facility] Medical History (Updated 01/03/25 @ 10:25 by Dayron Conn MD) Diabetes mellitus Essential hypertension Severe obesity (BMI 35.0-39.9) with comorbidity Hyperlipidemia LDL goal <70 Morbid obesity Mild asthma Surgical History History of History of colonoscopy History of wisdom tooth extraction Family History Mother Diabetes Asthma Hypertension Father Diabetes Maternal Grandfather Colon cancer Maternal Aunt Colon cancer Social History Housing: Apartment Alcohol intake: never Patient Tobacco Use Status: Never used Tobacco e-Cigarette/Vaping Use: Never Used Second Hand Smoke Exposure: No service: No Current occupational status: unemployed Cognitive needs: No Hearing needs: No Vision needs: Yes Assessment & Plan Assessment & Plan (1) Diabetes mellitus: Code(s): E11.9 - Type 2 diabetes mellitus without complications Category: Medical Qualifiers: Diabetes mellitus complication status: without complication Diabetes mellitus penitentiary insulin use: without penitentiary use Diabetes mellitus type: type 2 Qualified Code(s): E11.9 - Type 2 diabetes mellitus without complications Plan: Wt: 94.5 Kg ( 10/07 ), 90 kg (12/08), 86 kg (01/07) Est kcal needs as per MSJ: [phone] -[id number] (40% carb, 30% protein/fat) Est fluid needs as per 25-30 ml/d:2600 Est prot per day as per 1 g/kg bw:70- 90 Recommend fiber intake : 8-10 g per day and gradually increase to 25-28 g per day for women and 35-38 g for men or as tolerated Recommend sodium intake per day : less than 2000 mg Educated patient on: ( R = reviewed V = verbalizes understanding N/R = needs review N/A = not applicable * Food sources of carbohydrate, adequate serving sizes and its role in various health conditions: R * Differences between complex carbohydrates a simple carbohydrates, role of fiber in diet: R * Lean protein sources of foods: R * Differences between types of fats and role in diet (mono on saturated fat fatty acids, saturated fatty acids, trans fats): R * Food sources of sodium in salt and healthy modifications for heart health in kidney health: R ,v * Vitamins and minerals: R V N/R * Healthy plate method concept: R ,v * Physical activity: Benefits a precaution: R ,v * Hypoglycemia protocol (rule of 15): R V N/R * Dietary prevention of Hyperglycemia: R ,v Patient Instructions: Engage in walking 30 minutes 3 times a week - keeping the routine Continue choosing less than 180 g total carb, distributed throughout the day , choosing complex carbohydrates, nonstarchyveg Choose omega 3 fatty acids (fish at least twice/wk, nuts, seeds) keep hydrated by choosing low sugar beverages (water/herb infusedwater0 Coding Level of Care Code Nutr Indiv Subseq (19492) Diagnoses Type 2 diabetes mellitus without complication, without long-term current use of insulin E11.9 Diabetes mellitus complication status: without complication Diabetes mellitus penitentiary insulin use: without local 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
[2025-01-11 10:17] VITALS: BMI 36.0
[2025-01-17 21:13] VITALS: BMI 35.9
== END 2025-01-11 10:44 | disposition home or self-care (01) ==
LOC: HO.ENCR 09:58
PROVIDERS: PCP Internal Medicine; Visit Provider Dietitian, Registered
DX: E11.9 Type 2 diabetes mellitus without complications (principal)

== ENCOUNTER → 2025-01-11 09:57 | Outpatient (BNVA) | payer OTHER, SELFPAY | PROVIDERS: PCP Internal Medicine; Visit Provider Dietitian, Registered | DX: E11.9 Type 2 diabetes mellitus without complications (principal); E66.01 Morbid (severe) obesity due to excess calories; Z68.36 Body mass index [BMI] 36.0-36.9, adult; Z71.3 Dietary counseling and surveillance | CPT/HCPCS: 97803 ==

== ENCOUNTER 2025-02-22 09:22 | Outpatient (AMB) | payer OTHER, SELFPAY ==
--- NOTE | 2025-02-22 09:25 | MHC.OFFVIS ---
Vital Signs 02/22/25 09:29 Height 5 ft 1 in Weight 198 lb 6.656 oz BMI 37.5 BP 119/64 Blood Pressure Location Lt brachial Position Sitting Pulse 72 Intake Visit Reasons: 2 month f/u hemorroids Intake Note: Ines presents in the office as a 2 month follow up for hemorrhoids. CC: States that she is not having any more concerns at this time. Appellate Court Clerk Required: No Allergies No Known Allergies Allergy (Verified 02/22/25 09:29) HPI Comments Details: 29 y.o F with PMH of who is here for rectal pain. Pt reports having significant rectal pain with occasional bleeding over the last couple of weeks. In the last 4-5 days, the pain has worsened, to the point that she is unable to even sleep due to the pain. She has tried several [id number] treatments including phenylephrine cream and witch An wipes without any relief. Has also been seen in the emergency room twice for this. Reports pain while defecation now, even if the stool is not hard. Was prescribed topical lidocaine and hydrocortisone cream from the emergency room, which the patient just started yesterday. 02/22/25: Here for follow-up for constipation and anal fissure. She reports complete resolution of anal fissure symptoms and states she no longer experiences the severe pain she had previously. She initially experienced headaches with the nitroglycerin, but this side effect has since resolved. In any case, she is no longer using topical creams. Her bowel movements have improved, occurring most days without pain or blood. She has been using Senna as needed to keep stools soft, but not daily. The patient has a history of diverticulosis diagnosed via colonoscopy in [place] in May 2022. She reports being scared about her diagnosis as she has an aunt who required hospitalization for pain related to diverticulosis. --- Pt was informed and consented to the use of ambient scribe for this encounter. --- [facility] Medical History Diabetes mellitus Essential hypertension Severe obesity (BMI 35.0-39.9) with comorbidity Hyperlipidemia LDL goal <70 Morbid obesity Mild asthma Surgical History History of History of colonoscopy History of wisdom tooth extraction Family History Mother Diabetes Asthma Hypertension Father Diabetes Maternal Grandfather Colon cancer Maternal Aunt Colon cancer Social History Housing: Apartment Alcohol intake: never Patient Tobacco Use Status: Never used Tobacco e-Cigarette/Vaping Use: Never Used Second Hand Smoke Exposure: No service: No Current occupational status: unemployed Cognitive needs: No Hearing needs: No Vision needs: Yes Review of Systems Narrative Review of Systems - General: Denies current pain. - Gastrointestinal: Reports bowel movements are better and occur most days. - Denies pain with defecation and denies hematochezia. - Neurological: Reports a history of headache as a side effect of nitroglycerin, which has since resolved. Physical Exam Vital Signs: Last Vital Signs Pulse 72 02/22/25 09:29 BP 119/64 02/22/25 09:29 BMI result Body Mass Index 37.5 Assessment & Plan Assessment & Plan (1) Anal fissure: Code(s): K60.2 - Anal fissure, unspecified Category: Medical (2) Hemorrhoids: Code(s): K64.9 - Unspecified hemorrhoids Category: Medical (3) Constipation: Code(s): K59.00 - Constipation, unspecified Category: Medical (4) Diverticulosis: Code(s): K57.90 - Diverticulosis of intestine, part unspecified, without perforation or abscess without bleeding Category: Medical Plan Assessment and Plan 1. Anal Fissure, Resolved She reports resolution of pain after completing topical lido and nitroglycerin tx. No further testing needed at this time. 2. Constipation 3. Diverticulosis This has also improved. Bowel movements are regular and not painful. She has been using Senna as needed to prevent hard stools and straining. - Plan: - Daily MiraLAX powder. Can skip a dose for diarrhea. - Senna will be prescribed for as-needed use if she does not have a bowel movement for two or three days. - She was educated that diverticulosis is a non-cancerous change in the colon lining and does not inherently mean inflammation (diverticulitis). - Hand out provided for education and lifestyle modification. Medications: Changed From sennosides (senna) 8.6 mg PO DAILY 90 tabs 0RF To sennosides (senna) Take miralax daily, use senna if no BM for 2 days 8.6 mg PO DAILY PRN 90 tabs 0RF constipation Refilled polyethylene glycol 3350 (Miralax) 17 grams PO DAILY 510 grams 1RF 30 days Discontinued nitroglycerin 0.4%(w/w) Discontinued Reason: Patient Completed Course 1 inch OH DAILY 30 days 30 grams 0RF Coding Level of Care Code Est Pt Level 4 (98865) Diagnoses Anal fissure K60.2 Hemorrhoids K64.9 Constipation K59.00 Diverticulosis K57.90
[2025-02-22 09:29] VITALS: BP 119/64; PULSE 72; BMI 37.5
== END 2025-02-22 10:46 | disposition home or self-care (01) ==
PROVIDERS: PCP Internal Medicine; Visit Provider Internal Medicine
DX: K60.2 Anal fissure, unspecified (principal); K64.9 Unspecified hemorrhoids; K59.00 Constipation, unspecified; K57.90 Diverticulosis of intestine, part unspecified, without perforation or abscess without bleeding
CPT/HCPCS: 99214

== ENCOUNTER → 2025-02-22 09:22 | Outpatient (BNVA) | payer OTHER, SELFPAY | PROVIDERS: PCP Internal Medicine; Visit Provider Internal Medicine | DX: K64.9 Unspecified hemorrhoids (principal); K60.2 Anal fissure, unspecified; K57.90 Diverticulosis of intestine, part unspecified, without perforation or abscess without bleeding | CPT/HCPCS: 99212 ==